=== PATIENT | male | born 1960 | race Caucasian/White ===

== ENCOUNTER 2016-08-03 20:50 | Emergency (ER) | payer OTHER ==
[~2016-08-03] VITALS: Ht 175.3 cm; Wt 172.7 kg
[2016-08-03 20:52] VITALS: Ht 175.3 cm; Wt 172.7 kg
[2016-08-03] MEDS ORDERED: SOD CHLORIDE 0.9% 500 ML IV STA (21:21)
[2016-08-03 21:33] LABS: ADD SCAN DIFF NO
[2016-08-03 21:35] LABS: ABNORMAL IP MESSAGE 1; HEMATOCRIT 30.5 % (42.0-52.0); HEMOGLOBIN 10.3 g/dl (14.0-18.0); MEAN CORPUSCULAR HEMOGLOBIN 30.3 pg (29.0-33.0); MEAN CORPUSCULAR HGB CONC 33.8 g/dl (32.0-37.0); MEAN CORPUSCULAR VOLUME 89.7 fl (82.0-101.0); PLATELET COUNT 142 10^3/UL (140-415); RED CELL DISTRIBUTION WIDTH 17.2 % (11.5-14.5); WHITE BLOOD COUNT 5.3 10^3/ul (4.8-10.8)
[2016-08-03 21:53] LABS: INR 1.47; PROTIME 17.9 Sec (12.2-14.2); PT RATIO 1.4
[2016-08-03 21:54] LABS: PARTIAL THROMBOPLASTIN TIME 36.3 Sec (25.0-35.0)
[2016-08-03 22:05] LABS: ALANINE AMINOTRANSFERASE 66 IU/L (13-69); ALBUMIN/GLOBULIN RATIO 0.88; ALKALINE PHOSPHATASE 382 IU/L (42-121); ANION GAP 10 (8-16); ASPARTATE AMINO TRANSFERASE 108 IU/L (15-46); BILIRUBIN,INDIRECT 0.3 mg/dl (0-1.1); BILIRUBIN,TOTAL 0.3 mg/dl (0.2-1.3); BLOOD UREA NITROGEN 10 mg/dl (7-20); CALCIUM 8.4 mg/dl (8.4-10.2); CARBON DIOXIDE 18 mmol/L (21-31); CHLORIDE 111 mmol/L (97-110); CREATININE 0.97 mg/dl (0.61-1.24); GLUCOSE 89 mg/dl (70-220); POTASSIUM 4.6 mmol/L (3.5-5.1); SODIUM 134 mmol/L (135-144); TOTAL PROTEIN 6.4 g/dl (6.1-8.1)
[2016-08-03 22:14] LABS: EOSINOPHILS # 0.4 10^3/ul (0.0-0.5); LYMPHOCYTES # 1.1 10^3/ul (0.8-2.9); MONOCYTE # 0.6 10^3/ul (0.3-0.9); MYELOCYTES # 0.1; NEUTROPHIL # 2.9 10^3/ul (1.6-7.5); OVALOCYTES FEW; PLATELET ESTIMATE PLT APPEAR ADEQUATE; TEAR DROP CELLS FEW
[2016-08-03 22:17] LABS: TROPONIN-I < 0.012 ng/ml (0.00-0.12)
[2016-08-03] MEDS ORDERED: SOD CHLORIDE 0.9% 1,000 ML IV STA (22:31)
[2016-08-03] MEDS ORDERED: LEVE500T8 PO (22:46)
[2016-08-03] MEDS ORDERED: ZINC220C5 PO (22:46)
[2016-08-03] MEDS ORDERED: VANC125C10 PO (22:46)
[2016-08-03] MEDS ORDERED: PROP10TA6 PO (22:46)
[2016-08-03] MEDS ORDERED: FER325 PO (22:46)
--- NOTE | 2016-08-03 22:51 | RADRPT ---
PROCEDURE: XR Chest. CLINICAL INDICATION: Syncope. TECHNIQUE: Single frontal chest x-ray. COMPARISON: None. FINDINGS: The cardiomediastinal silhouette is unremarkable. There is no congestive heart failure.. No focal i nfiltrate is seen. There is no pleural effusion. There is no pneumothorax. The osseous structures are unremarkable. IMPRESSION: 1. No active disease. RPTAT: HMVK .Cedric Blunt MD, Date Time Electronically viewed and signed by .Cedric Blunt MD, MD on 08/03/2016 22:50 .K/
[2016-08-03 23:19] LABS: ADD UMIC NO; URINE BILIRUBIN (Dip) NEGATIVE (NEGATIVE); URINE BLOOD (Dip) NEGATIVE (NEGATIVE); URINE COLOR YELLOW (YELLOW); URINE GLUCOSE (Dip) NEGATIVE (NEGATIVE); URINE KETONES (Dip) TRACE (NEGATIVE); URINE LEUKOCYTE ESTERASE (Dip) NEGATIVE (NEGATIVE); URINE NITRITE (Dip) NEGATIVE (NEGATIVE); URINE TOTAL PROTEIN (Dip) NEGATIVE (NEGATIVE); URINE UROBILINOGEN (Dip) 0.2 E.U./dL (0.1-1.0)
[2016-08-04 00:20] VITALS: BP 112/50; PULSE 68; RESP 16
--- NOTE | 2016-08-04 00:23 | ERD ---
ER Documentation Chief Complaint Date/Time DATE: 08/04/16 TIME: 00:23 Chief Complaint hypotensive and generalized weakness x 2 days HPI 56-year-old male with a history of cirrhosis presenting to the ER with generalized weakness and dizziness that started at home today. He states he was walking to go eat dinner and felt very lightheaded and felt like he was about to faint. He denies any associated headache, chest pain, shortness of breath. He has been tired all day and sleeping per his sister. He was recently admitted to [facility] for diarrhea and hypotension. His lactulose was stopped at that time secondary to his diarrhea. Currently he is on vancomycin oral therapy for C. difficile colitis. He states that he is not having diarrhea anymore. He has not noted any fevers since his discharge. He denies any dysuria. He has not been eating much today as he has been sleeping. ROS All systems reviewed and are negative except as per history of present illness. Medications Home Meds Active Scripts Lactulose* (Lactulose*) 10 Gm/15 Ml Solution, 30 GM PO Q6 for 30 Days, ML Prov:FIGUEROA BETH MD 08/04/16 Reported Medications Ferrous Sulfate* (Ferrous Sulfate*) 325 Mg Tabec, 325 MG PO DAILY, TAB 08/03/16 Propranolol Hcl* (Propranolol Hcl*) 10 Mg Tablet, 10 MG PO BID, TAB 08/03/16 Levetiracetam* (Levetiracetam*) 500 Mg Tablet, 2000 MG PO Q12H, TAB 08/03/16 Zinc Sulfate* (Zinc Sulfate*) 220 Mg Cap, 220 MG PO DAILY, CAP 08/03/16 Vancomycin Hcl (Vancocin Hcl Oral) 125 Mg Cap, 125 MG PO Q6, CAP 08/03/16 Allergies Allergies: Coded Allergies: Penicillins (Verified Allergy, Intermediate, 08/03/16) PMhx/Soc History of Surgery: Yes (throat sx) Anesthesia Reaction: No Hx Neurological Disorder: Yes (sz) Hx Respiratory Disorders: No Hx Psychiatric Problems: No Hx Miscellaneous Medical Probl: No Hx Alcohol Use: No Hx Substance Use: No Hx Tobacco Use: No Smoking Status: Never smoker FmHx Family History: No diabetes Physical Exam Vitals Vital Signs Date Time Temp Pulse Resp B/P Pulse Ox O2 Delivery O2 Flow Rate FiO2 08/04/16 00:20 68 16 112/50 100 Room Air 08/03/16 23:07 118/85 08/03/16 22:47 59 16 102/64 100 Room Air 08/03/16 21:09 63 16 105/64 100 Room Air 08/03/16 20:52 98.0 68 18 108/59 97 Physical Exam Const: Chronically ill-appearing but nontoxic, no distress, no diaphoresis Head: Atraumatic Eyes: Normal Conjunctiva, PERRLA, EOMI, no nystagmus ENT: Dry oral mucosa, no intraoral lesions Neck: Full range of motion. No JVD. No meningismus. Resp: Clear to auscultation bilaterally Cardio: Regular rate and rhythm, no murmurs Abd: Soft, non tender, distended with ascites. Normal bowel sounds Skin: No petechiae or rashes Back: No midline or flank tenderness Ext: No cyanosis, trace bilateral lower extremity edema Neur: Awake and alert and oriented 3, cranial nerves intact, strength and sensations intact in all 4 extremities Psych: Normal Mood and Affect Result Diagram: 08/03/16211408/03/162114 Results 24 hrs Laboratory Tests Test 08/03/16 21:15 08/03/16 21:20 08/03/16 22:13 08/03/16 23:05 White Blood Count 5.310^3/ul Red Blood Count 3.4010^6/ul Hemoglobin 10.3g/dl Hematocrit 30.5% Mean Corpuscular Volume 89.7fl Mean Corpuscular Hemoglobin 30.3pg Mean Corpuscular Hemoglobin Concent 33.8g/dl Red Cell Distribution Width 17.2% Platelet Count 07272^3/UL Mean Platelet Volume 9.0fl Neutrophils % 55.0% Band Neutrophils % 2.0% Lymphocytes % 21.0% Monocytes % 11.0% Eosinophils % 7.0% Metamyelocytes % 3.0% Myelocytes % 1.0% Neutrophils # 2.910^3/ul Lymphocytes # 1.110^3/ul Monocytes # 0.610^3/ul Eosinophils # 0.410^3/ul Metamyelocytes # 0.2 Myelocytes # 0.1 Platelet Estimate PLT APPEAR ADEQUATE Tear Drop Cells FEW Ovalocytes FEW Prothrombin Time 17.9Sec Prothrombin Time Ratio 1.4 INR International Normalized Ratio 1.47 Activated Partial Thromboplast Time 36.3Sec Sodium Level 134mmol/L Potassium Level 4.6mmol/L Chloride Level 111mmol/L Carbon Dioxide Level 18mmol/L Anion Gap 10 Blood Urea Nitrogen 10mg/dl Creatinine 0.97mg/dl Glucose Level 89mg/dl Calcium Level 8.4mg/dl Total Bilirubin 0.3mg/dl Direct Bilirubin 0.00mg/dl Indirect Bilirubin 0.3mg/dl Aspartate Amino Transf (AST/SGOT) 108IU/L Alanine Aminotransferase (ALT/SGPT) 66IU/L Alkaline Phosphatase 382IU/L Troponin I < 0.012ng/ml Total Protein 6.4g/dl Albumin 3.0g/dl Globulin 3.40g/dl Albumin/Globulin Ratio 0.88 Ammonia 52umol/l Bedside Glucose 84mg/dL Urine Color YELLOW Urine Clarity CLEAR Urine pH 5.5 Urine Specific [place] 1.020 Urine Ketones TRACE Urine Nitrite NEGATIVE Urine Bilirubin NEGATIVE Urine Urobilinogen 0.2 E.U./dL Urine Leukocyte Esterase NEGATIVE Urine Hemoglobin NEGATIVE Urine Glucose NEGATIVE% Urine Total Protein NEGATIVE Current Medications Medications (Trade) Dose Ordered Sig/Kaylin Route PRN Reason Start Time Stop Time Status Last Admin Dose Admin Sodium Chloride 500 ml @ 500 mls/hr Q1H STAT IV 08/03/16 21:21 08/03/16 22:20 DC 08/03/16 21:32 Sodium Chloride (NS) 1,000 ml @ 1,000 mls/hr Q1H STAT IV 08/03/16 22:31 08/03/16 23:30 DC 08/03/16 22:34 Procedures/MDM EKG: Rate/Rhythm: Normal Sinus Rhythm QRS, ST, T-waves: low voltage in anterior leads, No changes consistent w/ acute ischemia Impression: No evidence of ischemia or arrhythmia Labs: CBC shows mild anemia, BMP shows hyponatremia and hyper chloremia. Ammonia level is elevated. Troponin is normal Chest x-ray did not show any acute abnormalities MDM Patient is presenting with acute onset dizziness and generalized weakness. I have a low suspicion for CVA or intracranial hemorrhage. I have a low suspicion for acute coronary syndrome, fatal arrhythmia, or pulmonary embolism. Patient was given IV fluids with significant improvement in his blood pressure and his symptoms. I discussed with him and his sister that his ammonia level was elevated and that they should start lactulose again now that he does not have diarrhea anymore. I do not suspect sepsis. I walked the patient around the ER and he had no recurrent symptoms of weakness or dizziness. I believe he is stable for discharge at this time with close continued outpatient follow-up. Follow-up was recommended in the next 2 days. A lactulose prescription was given. Patient was discharged in a stable condition with return precautions. Departure Diagnosis: Primary Impression: Acute weakness Additional Impression: Increased ammonia level Condition: Stable Patient Instructions: Weakness, Unk Cause Additional Instructions: Return to the ER for any worsaening symptoms. Follow-up with your doctor in 1- 2 days. Start taking your lactulose again. FIGUEROA BETH MD Aug 04, 2016 00:23
[2016-08-04] MEDS ORDERED: LACT10SO5 PO (00:32)
== END 2016-08-04 00:38 | disposition home or self-care (01) ==
LOC: E/R 20:50
DX: R53.1 Weakness (principal); E72.20 Disorder of urea cycle metabolism, unspecified; R42 Dizziness and giddiness
CPT/HCPCS: 71010; 80053; 81003; 82140; 82962; 84484; 85025; 85610; 85730; 93005; J7030; J7040; 36415

== ENCOUNTER 2016-08-16 04:10 | Inpatient (IN) | payer OTHER ==
[~2016-08-16] VITALS: Ht 175.3 cm; Wt 145.0 kg
[~2016-08-16 04:10] MED LIST: FER325 PO; LACT10SO5 PO; LEVE500T8 PO; PROP10TA6 PO; VANC125C10 PO; ZINC220C5 PO
[2016-08-16] MEDS ORDERED: SODIUM CHLORIDE 0.9% 1L BAG IV* STA (04:44)
[2016-08-16] MEDS ORDERED: ACETAMINOPHEN 325 MG TAB PO STA (04:44)
[2016-08-16 04:48] LABS: ADD SCAN DIFF NO
[2016-08-16 04:55] LABS: ABNORMAL IP MESSAGE 1; BASOPHILS % 0.4 % (0.0-2.0); EOSINOPHILS # 0.1 10^3/ul (0.0-0.5); EOSINOPHILS % 1.1 % (0.0-7.0); HEMATOCRIT 29.2 % (42.0-52.0); HEMOGLOBIN 9.6 g/dl (14.0-18.0); LYMPHOCYTES # 0.5 10^3/ul (0.8-2.9); LYMPHOCYTES % 6.8 % (15.0-51.0); MEAN CORPUSCULAR HEMOGLOBIN 29.9 pg (29.0-33.0); MEAN CORPUSCULAR HGB CONC 32.9 g/dl (32.0-37.0); MEAN PLATELET VOLUME 9.7 fl (7.4-10.4); MONOCYTE # 0.7 10^3/ul (0.3-0.9); NEUTROPHIL # 6.6 10^3/ul (1.6-7.5); NEUTROPHILS % 82.3 % (39.0-77.0); RED BLOOD COUNT 3.21 10^6/ul (4.70-6.10); RED CELL DISTRIBUTION WIDTH 16.9 % (11.5-14.5)
[2016-08-16 05:09] LABS: INR 1.56; PARTIAL THROMBOPLASTIN TIME 38.3 Sec (25.0-35.0); PROTIME 18.8 Sec (12.2-14.2); PT RATIO 1.5
[2016-08-16 05:14] LABS: ALANINE AMINOTRANSFERASE 66 IU/L (13-69); ALBUMIN 2.9 g/dl (3.3-4.9); ALBUMIN/GLOBULIN RATIO 0.87; ALKALINE PHOSPHATASE 381 IU/L (42-121); ANION GAP 10 (8-16); ASPARTATE AMINO TRANSFERASE 88 IU/L (15-46); BILIRUBIN,INDIRECT 1.2 mg/dl (0-1.1); BILIRUBIN,TOTAL 1.2 mg/dl (0.2-1.3); BLOOD UREA NITROGEN 10 mg/dl (7-20); CALCIUM 8.5 mg/dl (8.4-10.2); CARBON DIOXIDE 22 mmol/L (21-31); CHLORIDE 105 mmol/L (97-110); CREATININE 0.79 mg/dl (0.61-1.24); GLUCOSE 85 mg/dl (70-220); POTASSIUM 3.8 mmol/L (3.5-5.1); SODIUM 133 mmol/L (135-144); TOTAL PROTEIN 6.2 g/dl (6.1-8.1)
[2016-08-16 05:21] LABS: ACETAMINOPHEN < 10.0 ug/ml (10.0-30.0); SALICYLATE < 1.0 mg/dl (5.0-30.0)
--- NOTE | 2016-08-16 05:36 | RADRPT ---
PROCEDURE: CHEST - 1 VIEW CLINICAL INDICATION: 56-year-old male with altered level of consciousness. TECHNIQUE: A single frontal AP portable view of the chest was performed. The images were reviewed on a PACS workstation. COMPARISON: Chest x-ray August 03, 2016. FINDINGS: There is a shallow inspiration accentuating the heart size. Accounting for this, the cardiomediasti nal silhouette is within normal limits. There is mild elevation right hemidiaphragm. There is no e vidence for an infiltrate. There is no evidence for congestive heart failure. There is no evidence for pneumothorax. The osseous structures are intact. IMPRESSION: No evidence for active cardiopulmonary disease. .Carlos Alberto Tom MD, MD Date Time Electronically viewed and signed by .Carlos Alberto Tom MD, MD on 08/16/2016 05:36 .M/
[2016-08-16] MEDS ORDERED: AZTREONAM 1 GM/NS (PMX) 50 ML IVPB STA (05:39)
[2016-08-16] MEDS ORDERED: metroNIDAZOLE 500 MG/NS (PMX) 100 ML IVPB STA (05:39)
[2016-08-16 05:41] LABS: PLATELET COUNT 78 10^3/UL (140-415)
--- NOTE | 2016-08-16 05:43 | ERA ---
ER Documentation Chief Complaint Date/Time DATE: 08/16/16 TIME: 05:41 Chief Complaint abdominal pain, cirrhosis HPI 56-year-old gentleman abdominal pain and swelling. Patient has history of cirrhosis. Mild fever. No chills. No nausea no vomiting. No other current complaints. Pain is mild to moderate intensity and is diffuse in location nonlocalizing with no radiations ROS All systems reviewed and are negative except as per history of present illness. Medications Home Meds Active Scripts Lactulose* (Lactulose*) 10 Gm/15 Ml Solution, 30 GM PO Q6 for 30 Days, ML Prov:FIGUEROA BETH MD 08/04/16 Reported Medications Ferrous Sulfate* (Ferrous Sulfate*) 325 Mg Tabec, 325 MG PO DAILY, TAB 08/03/16 Propranolol Hcl* (Propranolol Hcl*) 10 Mg Tablet, 10 MG PO BID, TAB 08/03/16 Levetiracetam* (Levetiracetam*) 500 Mg Tablet, 2000 MG PO Q12H, TAB 08/03/16 Zinc Sulfate* (Zinc Sulfate*) 220 Mg Cap, 220 MG PO DAILY, CAP 08/03/16 Discontinued Reported Medications Vancomycin Hcl (Vancocin Hcl Oral) 125 Mg Cap, 125 MG PO Q6, CAP 08/03/16 Allergies Allergies: Coded Allergies: Penicillins (Unverified Allergy, Intermediate, 08/16/16) PMhx/Soc History of Surgery: Yes (throat sx) Anesthesia Reaction: No Hx Neurological Disorder: Yes (sz) Hx Respiratory Disorders: No Hx Psychiatric Problems: No Hx Miscellaneous Medical Probl: No Hx Alcohol Use: No Hx Substance Use: No Hx Tobacco Use: No Physical Exam Vitals Vital Signs Date Time Temp Pulse Resp B/P Pulse Ox O2 Delivery O2 Flow Rate FiO2 08/16/16 04:23 Nasal Cannula 2 08/16/16 04:10 100.8 104 16 108/57 96 Physical Exam Const: [] Head: Atraumatic Eyes: Normal Conjunctiva ENT: Normal External Ears, Nose and Mouth. Neck: Full range of motion..~ No meningismus. Resp: Clear to auscultation bilaterally Cardio: Regular rate and rhythm, no murmurs Abd: Distended abdomen hypoactive bowel sounds. Palpable fluid wave Skin: No petechiae or rashes Back: No midline or flank tenderness Ext: No cyanosis, or edema Neur: Awake and alert Psych: Normal Mood and Affect Result Diagram: 08/16/16 0430 08/16/16 0430 Results 24 hrs Laboratory Tests Test 08/16/16 04:24 08/16/16 04:30 Bedside Glucose 95mg/dL White Blood Count 8.010^3/ul Red Blood Count 3.2110^6/ul Hemoglobin 9.6g/dl Hematocrit 29.2% Mean Corpuscular Volume 91.0fl Mean Corpuscular Hemoglobin 29.9pg Mean Corpuscular Hemoglobin Concent 32.9g/dl Red Cell Distribution Width 16.9% Platelet Count Pending Mean Platelet Volume 9.7fl Neutrophils % 82.3% Lymphocytes % 6.8% Monocytes % 9.0% Eosinophils % 1.1% Basophils % 0.4% Nucleated Red Blood Cells % 0.0/100WBC Neutrophils # 6.610^3/ul Lymphocytes # 0.510^3/ul Monocytes # 0.710^3/ul Eosinophils # 0.110^3/ul Basophils # 0.010^3/ul Nucleated Red Blood Cells # 0.010^3/ul Prothrombin Time 18.8Sec Prothrombin Time Ratio 1.5 INR International Normalized Ratio 1.56 Activated Partial Thromboplast Time 38.3Sec Sodium Level 133mmol/L Potassium Level 3.8mmol/L Chloride Level 105mmol/L Carbon Dioxide Level 22mmol/L Anion Gap 10 Blood Urea Nitrogen 10mg/dl Creatinine 0.79mg/dl Glucose Level 85mg/dl Lactic Acid Level 1.4mmol/L Calcium Level 8.5mg/dl Total Bilirubin 1.2mg/dl Direct Bilirubin 0.00mg/dl Indirect Bilirubin 1.2mg/dl Aspartate Amino Transf (AST/SGOT) 88IU/L Alanine Aminotransferase (ALT/SGPT) 66IU/L Alkaline Phosphatase 381IU/L Ammonia 24umol/l Troponin I < 0.012ng/ml Total Protein 6.2g/dl Albumin 2.9g/dl Globulin 3.30g/dl Albumin/Globulin Ratio 0.87 Salicylates Level < 1.0mg/dl Acetaminophen Level < 10.0ug/ml Ethyl Alcohol Level Pending Current Medications Medications (Trade) Dose Ordered Sig/Kaylin Route PRN Reason Start Time Stop Time Status Last Admin Dose Admin Sodium Chloride (NS) 3,410 ml BOLUS OVER 2 HOURS STAT IV* 08/16/16 04:44 08/16/16 04:59 DC Acetaminophen (Tylenol Tab) 650 mg ONCE STAT PO 08/16/16 04:44 08/16/16 04:59 DC Procedures/MDM Blood and urine cultures pending EKG: Rate/Rhythm: Normal Sinus Rhythm QRS, ST, T-waves: No changes consistent w/ acute ischemia Impression: No evidence of ischemia or arrhythmia Chest X-ray 1V Interpreted by me: Soft Tissue: No acute abnormalities Bones: No acute abnormalities Mediastinum/Cardiac Silhouette/Lungs: No acute abnormalities Medical decision-makin abdominal fever and ascites. Spontaneous retroperitoneal as well as be a great concern. Patient started on broad- spectrum antibiotic. Admitted to hospitalist. Departure Diagnosis: Primary Impression: Abdominal pain Qualified Code: R10.84 - Generalized abdominal pain Additional Impression: Spontaneous bacterial peritonitis Condition: Serious MARIA A TAMEZ Aug 16, 2016 05:43
[2016-08-16 05:50] LABS: ETHANOL < 10.0 mg/dl
[2016-08-16 07:34] LABS: ADD UMIC NO; UR ASCORBIC ACID 40 mg/dL (NEGATIVE); UR BILIRUBIN (Dip) NEGATIVE (NEGATIVE); UR BLOOD (Dip) NEGATIVE (NEGATIVE); UR CLARITY SLIGHTLY CLOUDY (CLEAR); UR COLOR AMBER (YELLOW); UR GLUCOSE (Dip) NEGATIVE (NEGATIVE); UR KETONES (Dip) TRACE mg/dL (NEGATIVE); UR LEUKOCYTE ESTERASE (Dip) NEGATIVE Leu/ul (NEGATIVE); UR MUCUS FEW /HPF (NONE SEEN); UR NITRITE (Dip) NEGATIVE (NEGATIVE); UR RBC 0 /HPF (0-5); UR SPECIFIC GRAVITY (Dip) 1.021 (1.003-1.030); UR SQUAMOUS EPITHELIAL CELL FEW /HPF (FEW); UR TOTAL PROTEIN (Dip) NEGATIVE (NEGATIVE); UR UROBILINOGEN (Dip) NEGATIVE (NEGATIVE)
[2016-08-16 07:58] LABS: BARBITURATES NEGATIVE (NEGATIVE); BENZODIAZEPINES NEGATIVE (NEGATIVE); CANNABINOIDS NEGATIVE (NEGATIVE); COCAINE NEGATIVE (NEGATIVE); OPIATES NEGATIVE (NEGATIVE)
[2016-08-16 08:47] VITALS: TEMP 99
[2016-08-16] MEDS ORDERED: HYDROCODONE/APAP (5/325) TAB PO PRN (10:00)
[2016-08-16] MEDS ORDERED: morphine 2 MG INJ IV PRN (10:00)
[2016-08-16] MEDS ORDERED: ACETAMINOPHEN 325 MG TAB PO PRN (10:00)
[2016-08-16] MEDS ORDERED: NACL 0.9% 3 ML SYG IV SCH (10:00)
[2016-08-16 10:43] VITALS: BP 97/54; PULSE 93; RESP 20; Ht 175.3 cm; Wt 145.0 kg
--- NOTE | 2016-08-16 11:05 | HP ---
Date/Time of Note Date/Time of Note DATE: 08/16/16 TIME: 11:01 Assessment/Plan VTE Prophylaxis VTE Prophylaxis Intervention: contraindicated Assessment/Plan Assessment/Plan 1. Systemic inflammatory response syndrome with febrile illness and tachycardia. The source of infection is unclear at this time. The patient will be empirically treated for any underlying spontaneous pectoral peritonitis. Patient is allergic to penicillins and hence the patient will be started on Flagyl and aztreonam. Patient has no evidence of any septic shock. 2. Liver cirrhosis. The patient's ammonia level is within normal limits. The patient will be gently diuresed. The patient's chest x-ray showing no evidence of any pulmonary vascular congestion. 3. Abdominal pain. CT scan of the abdomen and pelvis will be obtained. The patient will be provided with adequate pain control. Gastroenterology consult will be obtained 4. Seizure disorder. The patient's antiseizure medications will be resumed. 5. Normocytic normochromic anemia. Most probably anemia of chronic disease. Will obtain an iron panel. 6. Thrombocytopenia. Most probably secondary to underlying liver cirrhosis. Will monitor the H&H closely. Will avoid any anticoagulants. 7. Morbid obesity. Fasting lipid panel will be obtained. A hemoglobin A1c will be obtained. Plan: The patient will be admitted to inpatient medical surgical floor. The patient will be kept n.p.o. except for any medications. The patient will be started on DVT prophylaxis and gastrointestinal prophylaxis. The patient will remain a full code. Activities will be with assist. The rest of the patient's management will be based on the clinical course and the results of diagnostic studies. Based on the patient's clinical presentation, he most probably requires at least 2 midnights' stay for further management and evaluation of his clinical presentation. The case and management of this patient was fully discussed with Dr. Randy GREEN/ZACH Admit Date/Time Admit Date/Time Aug 16, 2016 at 05:49 Hx of Present Illness This is a 56-year-old male with past medical history of liver cirrhosis of unclear etiology, leukemia status post radiation and chemotherapy in the past, seizure disorder, and morbid obesity who came to the emergency room with multiple complaints. Patient verbalized that he has been having increased abdominal distention and abdominal pain for the past few days. The patient also verbalized multiple episodes of nonbilious nonbloody vomiting. The patient apparently was treated for C. difficile colitis with oral vancomycin. The patient continues to have diarrhea. Patient denied any melena or hematochezia. Patient denied any hematemesis. The patient has prior history of esophageal varices. The patient denied any prior paracentesis. In the emergency room, the patient was noticed to have a fever of 100.8. Patient had no underlying leukocytosis. The patient was treated with IV Flagyl and IV aztreonam for possible underlying spontaneous bacterial peritonitis. ROS Constitutional: chills Eyes: no complaints ENT: no complaints Respiratory: no complaints Cardiovascular: no complaints Gastrointestinal: diarrhea, nausea, pain, vomiting Genitourinary: no complaints Musculoskeletal: no complaints Skin: no complaints Neurologic: no complaints Endocrine: no complaints Lymphatic: no complaints Psychological: no complaints Immunologic: no complaints PMH/Family/Social Past Medical History Medical History: other (Liver cirrhosis, seizure disorder, obesity) Past Surgical History Past Surgical Hx: no surgical history Social History Alcohol Use: none Smoking Status: Former smoker Drug Use: none Exam/Review of Systems Vital Signs Vitals Vital Signs Date Time Temp Pulse Resp B/P Pulse Ox O2 Delivery O2 Flow Rate FiO2 08/16/16 08:47 99.0 91 20 107/92 100 Room Air 08/16/16 04:23 2 Exam Exam General: Morbidly obese 56 year-old male lying in bed in no apparent distress. HEENT: Normocephalic, atraumatic. Eyes: Anicteric sclerae, conjunctivae clear. ENT: Nasal septum midline, oral mucosa moist. Neck supple, no JVD noticed. Respiratory: Bilaterally clear breath sounds. No use of accessory muscles of respiration. No adventitious breath sounds. Cardiovascular: S1, S2 heard. Irregularly irregular rhythm. Abdomen: Distended. Bowel sounds positive in all 4 quadrants. Left lower quadrant tenderness. Genitourinary: Deferred. Extremities: No cyanosis, no clubbing. Bilateral lower extremity 2+ pitting edema. Peripheral pulses palpable. Neurologic: Cranial nerves II through XII grossly intact. The patient is awake, alert, and oriented. Skin: Normal skin turgor. No skin rashes. Labs Result Diagram: 08/16/16 0430 08/16/16 0430 Medications Medications Current Medications Ondansetron HCl (Zofran Inj) 4 mg Q6H PRN IV NAUSEA AND/OR VOMITING; Start at 10:00 Acetaminophen (Tylenol Tab) 650 mg Q6H PRN PO PAIN LEVEL 1-3 OR FEVER; Start at 10:00 Acetaminophen/ Hydrocodone Bitart ([place] (5/325)) 1 tab Q6H PRN PO MODERATE PAIN LEVEL 4-6; Start 08/16/16 at 10:00 Morphine Sulfate (morphine) 2 mg Q4H PRN IV SEVERE PAIN LEVEL 7-10; Start 08/16 at 10:00 Pantoprazole (Protonix Tab) 40 mg DAILY@06 PO ; Start 08/17/16 at 06:00 Ferrous Sulfate (Ferrous Sulfate (Ec)) 325 mg DAILY PO ; Start 08/17/16 at 09:00 Levetiracetam (Keppra) 2,000 mg Q12H PO ; Start 08/16/16 at 10:00 Propranolol HCl (Inderal) 10 mg BID PO ; Start 08/16/16 at 21:00 Zinc Sulfate 220 mg 220 mg DAILY PO ; Start 08/17/16 at 09:00 Metronidazole 100 ml @ 100 mls/hr Q8 IVPB ; Start 08/16/16 at 14:00 Aztreonam (Azactam 1gm/NS (Pmx)) 50 ml @ 100 mls/hr Q12 IVPB ; Start 08/16/16 at 21:00 Procedures Procedures CXR IMPRESSION: No evidence for active cardiopulmonary disease. Twelve-lead EKG Frequent premature ventricular complexes. MALU CORONADO NP Aug 16, 2016 11:05
[2016-08-16] MEDS: LEVETIRACETAM 500 MG TAB PO SCH ×2 (11:33→21:25)
--- NOTE | 2016-08-16 15:45 | RADRPT ---
PROCEDURE: CT Abdomen and Pelvis without contrast CLINICAL INDICATION: Abdominal pain TECHNIQUE: Transaxial images were obtained through the abdomen and pelvis on a multi-slice scanner without the intravenous contrast administration. No oral contrast had previously been given. Sagit lilly and coronal re-formations were subsequently reconstructed. One or more of the following dose reduction techniques were used: - Automated exposure control. - Adjustment of the mA and/or kV according to patient size. - Use of iterative reconstruction technique. Radiation dose: CTDIvol = 23.84 mGy; DLP = 1774.60 mGy-cm. COMPARISON: No prior studies are available for comparison. FINDINGS: Lung bases: Discoid atelectasis is seen at the lung bases and there is a small gravitating left pleu ral fluid accumulation. Liver: The liver is small in size. No discrete focal lesion is identified. Gallbladder: There is extensive cholelithiasis in the gallbladder is mildly distended. The wall mascorro s not appear thickened. Bile ducts: The intra and extrahepatic bile ducts are normal in caliber. Pancreas: The pancreas is significantly fatty replaced. Spleen: The spleen is mildly enlarged. Adrenals: Normal with no mass identified. Kidneys, ureters and bladder: The kidneys are normal in size and there is no mass, pathological calc ification, or hydronephrosis evident. There is no perinephric stranding. The ureters are normal in c aliber and no ureteroliths are identified. The bladder appears unremarkable. Reproductive organs: Unremarkable. Stomach and bowel: The stomach appears unremarkable. There is no evidence of bowel obstruction. Di verticuli are seen within the descending and sigmoid colon. There is slight stranding within the fa t in the region of the mid to distal ascending colon for which mild diverticulitis cannot be exclude d. Appendix: The vermiform appendix is not discretely identified. Peritoneum: There is a moderate amount of water density free intraperitoneal fluid. No free air is identified. Aorta: Normal in caliber with no aneurysmal dilatation. IVC: Unremarkable. Lymph nodes: No pathologically enlarged nodes are identified. Osseous structures: Moderate degenerative spine changes are seen diffusely. IMPRESSION: 1. There is a moderate amount of water density free intraperitoneal fluid. No free air is evident. 2. Diverticuli are seen within the descending and sigmoid colon and there is stranding within the f at along the descending colon raising the suspicion of diverticulitis. There is no evidence of onesimo l obstruction. 3. Extensive cholelithiasis with the gallbladder mildly distended. No gallbladder wall thickening or bile duct dilatation is evident and the pancreas is partially fatty replaced. 4. The liver is small with no focal lesion and the spleen is mildly enlarged. 5. Small left pleural fluid accumulation with discoid atelectasis seen at the lung bases, greater on the left and the right. Physician Leann Date Time Electronically viewed and signed by Nikolas Louis Physician on 08/16/2016 15:45 RH/
[2016-08-16] MEDS: metroNIDAZOLE 500 MG/NS (PMX) 100 ML IVPB SCH ×2 (16:12→23:13)
[2016-08-16] MEDS ORDERED: LORAZEPAM 0.5 MG TAB PO PRN (16:30)
--- NOTE | 2016-08-16 16:44 | CONS ---
Date/Time of Note Date/Time of Note DATE: 08/16/16 TIME: 16:20 Assessment/Plan Assessment/Plan Additional Assessment/Plan Assessment * Transaminitis * Anemia Chronic vs acute * Diarrhea/abdominal pain R/O C difficile CT scan of pelvis . Diverticuli are seen within the descending and sigmoid colon and there is stranding within the fat along the descending colon raising the suspicion of diverticulitis. There is no evidence of bowel obstruction. Extensive cholelithiasis with the gallbladder mildly distended. No gallbladder wall thickening or bile duct dilatation is evident and the pancreas is partially fatty replaced. . The liver is small with no focal lesion and the spleen is mildly enlarged * Morbid obesity * History of C difficile * Seizure disorder Plan * continue present management * request for stool c difficile * trend liver enzymes * request for iron profile Consultation Date/Type/Reason Admit Date/Time Aug 16, 2016 at 05:49 Date of Consultation: Aug 16, 2016 Type of Consultation: Gastroenterology Reason for Consultation diarrhea/ct scan diverticulitis Referring Provider: MALU CORONADO NP Hx of Present Illness 56 year old male morbid obesity,history of liver cirrhosis,history of leukemia post chemotherapy and radiation therapy,history of c difficile on oral vancomycin last July presented in the emergency room because of multiple complaints.He complains of diarrhea watery with no associated blood, with associated body weakness and vomiting and on and off abdominal pain for several days.he denies hematemesis nor hematochezia Emergency room course ,patient is febrile but no leukocytosis,hemoglobin of 9Total bilirubin 1.2,AST 88 alt 66,alkaline phosphatase 381. He was started on antibiotics.On the floor ,he denies any abdominal pain,nausea nor vomiting but having episode of diarrhea.CT abdomen/pelvis 1. There is a moderate amount of water density free intraperitoneal fluid. No free air is evident. 2. Diverticuli are seen within the descending and sigmoid colon and there is stranding within the fat along the descending colon raising the suspicion of diverticulitis. There is no evidence of bowel obstruction. 3. Extensive cholelithiasis with the gallbladder mildly distended. No gallbladder wall thickening or bile duct dilatation is evident and the pancreas is partially fatty replaced. 4. The liver is small with no focal lesion and the spleen is mildly enlarged. 5. Small left pleural fluid accumulation with discoid atelectasis seen at the lung bases, greater on the left and the right. Stool for clostridium difficile will requested and trend liver enzymes Eyes: no complaints ENT: no complaints Respiratory: no complaints Cardiovascular: no complaints Gastrointestinal: diarrhea, flatus, nausea, pain, vomiting Genitourinary: no complaints Musculoskeletal: no complaints Skin: no complaints Neurologic: no complaints Endocrine: no complaints Lymphatic: no complaints Psychological: no complaints Immunologic: no complaints Past Medical History Medical History: colitis, other (Liver cirrhosis, seizure disorder, obesity) Past Surgical History Past Surgical Hx: other (surgery for polyp trachea) Social History Alcohol Use: none Smoking Status: Never smoker Drug Use: none Exam/Review of Systems Vital Signs Vitals Vital Signs Date Time Temp Pulse Resp B/P Pulse Ox O2 Delivery O2 Flow Rate FiO2 08/16/16 10:43 97.7 93 20 97/54 98 Room Air 08/16/16 04:23 2 Exam Constitutional: alert, oriented, well developed Psych: nl mood/affect, no complaints Head: atraumatic, normocephalic Eyes: PERRL, nl conjunctiva, nl lids, nl sclera ENMT: nl external ears & nose, nl nasal mucosa & septum Neck: non-tender, supple Respiratory: clear to auscultation, diminished breath sounds, normal air movement Cardiovascular: nl pulses, regular rate and rhythm Gastrointestinal: bowel sounds, distended, nl liver, spleen, non-tender, soft, No rebound or guarding Musculoskeletal: muscle weakness, swelling Extremities: edema, normal pulses Neurological: DRAUGHTSMAN II-XII intact, nl mental status, nl speech, nl strength Skin: nl turgor, No rash or lesions Lymph: nl lymph nodes Results Result Diagram: 08/16/16 0430 08/16/16 0430 Results 24 hrs Laboratory Tests Test 08/16/16 04:24 08/16/16 04:30 08/16/16 07:00 08/16/16 08:25 Bedside Glucose 95 White Blood Count 8.0 # Red Blood Count 3.21 L Hemoglobin 9.6 L Hematocrit 29.2 L Mean Corpuscular Volume 91.0 Mean Corpuscular Hemoglobin 29.9 Mean Corpuscular Hemoglobin Concent 32.9 Red Cell Distribution Width 16.9 H Platelet Count 78 #L Mean Platelet Volume 9.7 Neutrophils % 82.3 H Lymphocytes % 6.8 L Monocytes % 9.0 Eosinophils % 1.1 Basophils % 0.4 Nucleated Red Blood Cells % 0.0 Neutrophils # 6.6 Lymphocytes # 0.5 L Monocytes # 0.7 Eosinophils # 0.1 Basophils # 0.0 Nucleated Red Blood Cells # 0.0 Prothrombin Time 18.8 H Prothrombin Time Ratio 1.5 INR International Normalized Ratio 1.56 Activated Partial Thromboplast Time 38.3 H Sodium Level 133 L Potassium Level 3.8 Chloride Level 105 Carbon Dioxide Level 22 Anion Gap 10 Blood Urea Nitrogen 10 Creatinine 0.79 Glucose Level 85 Hemoglobin A1c 4.9 Lactic Acid Level 1.4 1.6 Calcium Level 8.5 Total Bilirubin 1.2 Direct Bilirubin 0.00 Indirect Bilirubin 1.2 H Aspartate Amino Transf (AST/SGOT) 88 H Alanine Aminotransferase (ALT/SGPT) 66 Alkaline Phosphatase 381 H Ammonia 24 # Troponin I < 0.012 Total Protein 6.2 Albumin 2.9 L Globulin 3.30 H Albumin/Globulin Ratio 0.87 Thyroid Stimulating Hormone (TSH) 1.610 Free Thyroxine 1.17 Salicylates Level < 1.0 L Acetaminophen Level < 10.0 L Ethyl Alcohol Level < 10.0 Urine Color DARRICK Urine Clarity SLIGHTLY CLOUDY A Urine pH 5.0 Urine Specific [place] 1.021 Urine Ketones TRACE A Urine Nitrite NEGATIVE Urine Bilirubin NEGATIVE Urine Urobilinogen NEGATIVE Urine Leukocyte Esterase NEGATIVE Urine Microscopic RBC 0 Urine Microscopic WBC 2 Urine Squamous Epithelial Cells FEW Urine Mucus FEW A Urine Hemoglobin NEGATIVE Urine Glucose NEGATIVE Urine Total Protein NEGATIVE Urine Opiates Screen NEGATIVE Urine Barbiturates NEGATIVE Urine Amphetamines Screen NEGATIVE Urine Benzodiazepines Screen NEGATIVE Urine Cocaine Screen NEGATIVE Urine Cannabinoids NEGATIVE Medications Medications Current Medications Ondansetron HCl (Zofran Inj) 4 mg Q6H PRN IV NAUSEA AND/OR VOMITING; Start at 10:00 Acetaminophen (Tylenol Tab) 650 mg Q6H PRN PO PAIN LEVEL 1-3 OR FEVER; Start at 10:00 Acetaminophen/ Hydrocodone Bitart ([place] (5/325)) 1 tab Q6H PRN PO MODERATE PAIN LEVEL 4-6; Start 08/16/16 at 10:00 Morphine Sulfate (morphine) 2 mg Q4H PRN IV SEVERE PAIN LEVEL 7-10; Start 08/16 at 10:00 Pantoprazole (Protonix Tab) 40 mg DAILY@06 PO ; Start 08/17/16 at 06:00 Ferrous Sulfate (Ferrous Sulfate (Ec)) 325 mg DAILY PO ; Start 08/17/16 at 09:00 Levetiracetam (Keppra) 2,000 mg Q12H PO Last administered on 08/16/16 11:33; Admin Dose 2,000 MG; Start 08/16/16 at 10:00 Propranolol HCl (Inderal) 10 mg BID PO ; Start 08/16/16 at 21:00 Zinc Sulfate 220 mg 220 mg DAILY PO ; Start 08/17/16 at 09:00 Metronidazole 100 ml @ 100 mls/hr Q8 IVPB Last administered on 08/16/16 16:12 ; Admin Dose 100 MLS/HR; Start 08/16/16 at 14:00 Aztreonam 50 ml @ 100 mls/hr Q12 IVPB ; Start 08/16/16 at 21:00 Potassium Chloride/Dextrose/ Sodium Chloride (KCl/D5-NS) 1,000 ml @ 60 mls/hr [id number] IV ; Start 08/16/16 at 17:00 Lorazepam (Ativan) 0.5 mg Q6H PRN PO ANXIETY; Start 08/16/16 at 16:30 Furosemide (Lasix) 20 mg DAILY IV ; Start 08/17/16 at 09:00 LAVON DIAZ MD Aug 16, 2016 16:30
[2016-08-16] MEDS: POTASSIUM CHLORIDE 10 MEQ in DEXTROSE 5%-0.9% NACL 995 ML IV SCH (18:06)
[2016-08-16] MEDS: ONDANSETRON 4 MG INJ IV PRN (18:08)
[2016-08-16 19:37] VITALS: BP 96/53; RESP 20
[2016-08-16] MEDS: PROPRANOLOL 10 MG TAB PO SCH (20:12)
[2016-08-16] MEDS: AZTREONAM 1 GM/NS (PMX) 50 ML IVPB SCH (22:46)
[2016-08-17] MEDS: metroNIDAZOLE 500 MG/NS (PMX) 100 ML IVPB SCH ×3 (06:42→22:58)
[2016-08-17] MEDS: PANTOPRAZOLE (EC) 40 MG TAB PO SCH (06:42)
[2016-08-17 07:32] VITALS: BP 94/51; RESP 18
[2016-08-17 08:02] LABS: ADD SCAN DIFF NO
[2016-08-17 08:13] LABS: ABNORMAL IP MESSAGE 1; BASOPHILS % 0.8 % (0.0-2.0); EOSINOPHILS # 0.1 10^3/ul (0.0-0.5); EOSINOPHILS % 4.5 % (0.0-7.0); HEMATOCRIT 25.7 % (42.0-52.0); HEMOGLOBIN 8.3 g/dl (14.0-18.0); LYMPHOCYTES # 0.6 10^3/ul (0.8-2.9); LYMPHOCYTES % 20.8 % (15.0-51.0); MEAN CORPUSCULAR HEMOGLOBIN 29.5 pg (29.0-33.0); MEAN CORPUSCULAR HGB CONC 32.3 g/dl (32.0-37.0); MEAN CORPUSCULAR VOLUME 91.5 fl (82.0-101.0); MEAN PLATELET VOLUME 9.5 fl (7.4-10.4); MONOCYTE # 0.7 10^3/ul (0.3-0.9); MONOCYTES % 24.6 % (0.0-11.0); NEUTROPHIL # 1.3 10^3/ul (1.6-7.5); NEUTROPHILS % 48.9 % (39.0-77.0); RED BLOOD COUNT 2.81 10^6/ul (4.70-6.10); RED CELL DISTRIBUTION WIDTH 16.9 % (11.5-14.5); WHITE BLOOD COUNT 2.6 10^3/ul (4.8-10.8)
[2016-08-17 08:16] LABS: PLATELET COUNT 58 10^3/UL (140-415)
[2016-08-17 08:34] LABS: INR 1.75; PROTIME 20.6 Sec (12.2-14.2); PT RATIO 1.6
[2016-08-17 08:35] LABS: PARTIAL THROMBOPLASTIN TIME 42.8 Sec (25.0-35.0)
[2016-08-17 08:50] LABS: CHOL/HDL RATIO 2.6 RATIO; MAGNESIUM 1.7 mg/dl (1.7-2.5); PHOSPHORUS 2.9 mg/dl (2.5-4.9)
[2016-08-17 09:05] LABS: ALBUMIN 2.4 g/dl (3.3-4.9); ALBUMIN/GLOBULIN RATIO 0.77; BILIRUBIN,INDIRECT 0.6 mg/dl (0-1.1); BILIRUBIN,TOTAL 0.6 mg/dl (0.2-1.3); CALCIUM 7.6 mg/dl (8.4-10.2); CREATININE 0.74 mg/dl (0.61-1.24); POTASSIUM 3.4 mmol/L (3.5-5.1); TOTAL PROTEIN 5.5 g/dl (6.1-8.1)
[2016-08-17 09:32] LABS: BILIRUBIN,INDIRECT 0.5 mg/dl (0-1.1); BILIRUBIN,TOTAL 0.5 mg/dl (0.2-1.3)
[2016-08-17 10:18] VITALS: BP 99/62; PULSE 92; RESP 18
[2016-08-17] MEDS: FUROSEMIDE 20 MG INJ IV SCH (10:20)
[2016-08-17] MEDS: LEVETIRACETAM 500 MG TAB PO SCH ×2 (10:20→21:30)
[2016-08-17] MEDS: ZINC SULFATE 220 MG CAP PO SCH (10:21)
[2016-08-17] MEDS: FERROUS SULFATE (EC) 325 MG TAB PO SCH (10:21)
[2016-08-17] MEDS: PROPRANOLOL 10 MG TAB PO SCH ×2 (10:21→20:51)
[2016-08-17] MEDS: AZTREONAM 1 GM/NS (PMX) 50 ML IVPB SCH (10:24)
[2016-08-17] MEDS: POTASSIUM CHLORIDE 10 MEQ in DEXTROSE 5%-0.9% NACL 995 ML IV SCH (14:38)
[2016-08-17] MEDS: VANCOMYCIN HCL 250 MG/5ML POSYG PO SCH ×3 (14:38→23:40)
--- NOTE | 2016-08-17 15:15 | PN ---
Date/Time of Note Date/Time of Note DATE: 08/17/16 TIME: 15:15 Assessment/Plan VTE Prophylaxis VTE Prophylaxis Intervention: SCD's Lines/Catheters IV Catheter Type (from [facility]): [place] Urinary Cath still in place: No Assessment/Plan Chief Complaint/Hosp Course 1. Sepsis secondary to underlying urinary tract infection and C. difficile colitis. Continue antimicrobials. The patient has no evidence of any septic shock. 2. Liver cirrhosis. The patient's ammonia level is within normal limits. The patient will be gently diuresed. The patient's chest x-ray showing no evidence of any pulmonary vascular congestion. 3. Abdominal pain. Abdominal CT scan showing moderate amount of water density free intraperitoneal fluid. The CT also revealed diverticuli within the descending colon and sigmoid colon and there is stranding within the fat along the descending colon raising the suspicion of diverticulitis. CT also revealed extensive cholelithiasis with gallbladder mildly distended with no gallbladder wall thickening or bile duct dilatation. Patient being followed by gastroenterology. 4. Seizure disorder. The patient's antiseizure medications will be continued. 5. Normocytic normochromic anemia. Most probably anemia of chronic disease. Will obtain an iron panel. Patient already on iron supplements. 6. Thrombocytopenia. Most probably secondary to underlying liver cirrhosis. Will monitor the H&H closely. Will avoid any anticoagulants. 7. C. difficile colitis. Continue antimicrobials. Enteric precautions. 8. Fluids, electrolytes, and nutrition. The patient was started on clear liquids as per gastroenterology. 9. DVT prophylaxis. Bilateral sequential compression devices. 10. Gastrointestinal prophylaxis. Proton pump inhibitors. 11. Plan. Continue antimicrobials. Advancement of diet as per gastroenterology. Replete potassium. Case discussed with Dr. Padilla. Problems: Subjective 24 Hr Interval Summary Free Text/Dictation The patient remains afebrile. Exam/Review of Systems Vital Signs Vitals Vital Signs Date Time Temp Pulse Resp B/P Pulse Ox O2 Delivery O2 Flow Rate FiO2 08/17/16 10:18 92 18 99/62 08/17/16 07:32 98.5 96 08/16/16 10:43 Room Air 08/16/16 04:23 2 Intake and Output 08/16/16 08/16/16 08/17/16 15:00 23:00 07:00 Intake Total 100 ml 1310 ml Balance 100 ml 1310 ml Exam General: Morbidly obese 56 year-old male lying in bed in no apparent distress. HEENT: Normocephalic, atraumatic. Eyes: Anicteric sclerae, conjunctivae clear. ENT: Nasal septum midline, oral mucosa moist. Neck supple, no JVD noticed. Respiratory: Bilaterally clear breath sounds. No use of accessory muscles of respiration. No adventitious breath sounds. Cardiovascular: S1, S2 heard. Irregularly irregular rhythm. Abdomen: Distended. Bowel sounds positive in all 4 quadrants. Left lower quadrant tenderness. Genitourinary: Deferred. Extremities: No cyanosis, no clubbing. Bilateral lower extremity 2+ pitting edema. Peripheral pulses palpable. Neurologic: Cranial nerves II through XII grossly intact. The patient is awake, alert, and oriented. Skin: Normal skin turgor. No skin rashes. Results Result Diagram: 08/17/16 0720 08/17/16 0720 Results 24 hrs Laboratory Tests Test 08/17/16 07:20 White Blood Count 2.6 #L Red Blood Count 2.81 L Hemoglobin 8.3 L Hematocrit 25.7 L Mean Corpuscular Volume 91.5 Mean Corpuscular Hemoglobin 29.5 Mean Corpuscular Hemoglobin Concent 32.3 Red Cell Distribution Width 16.9 H Platelet Count 58 #L Mean Platelet Volume 9.5 Neutrophils % 48.9 Lymphocytes % 20.8 Monocytes % 24.6 H Eosinophils % 4.5 Basophils % 0.8 Nucleated Red Blood Cells % 0.0 Neutrophils # 1.3 L Lymphocytes # 0.6 L Monocytes # 0.7 Eosinophils # 0.1 Basophils # 0.0 Nucleated Red Blood Cells # 0.0 Prothrombin Time 20.6 H Prothrombin Time Ratio 1.6 INR International Normalized Ratio 1.75 Activated Partial Thromboplast Time 42.8 H Sodium Level 132 L Potassium Level 3.4 L Chloride Level 110 Carbon Dioxide Level 18 L Anion Gap 7 L Blood Urea Nitrogen 10 Creatinine 0.74 Glucose Level 97 Calcium Level 7.6 L Phosphorus Level 2.9 Magnesium Level 1.7 Total Bilirubin 0.5 Direct Bilirubin 0.00 Indirect Bilirubin 0.5 Aspartate Amino Transf (AST/SGOT) 48 H Alanine Aminotransferase (ALT/SGPT) 54 Alkaline Phosphatase 292 H Ammonia 34 H Total Protein 5.5 L Albumin 2.4 L Globulin 3.10 Albumin/Globulin Ratio 0.77 Triglycerides Level 51 Cholesterol Level 61 L LDL Cholesterol, Calculated 28 HDL Cholesterol 23 L Cholesterol/HDL Ratio 2.6 Medications Medications Current Medications Ondansetron HCl (Zofran Inj) 4 mg Q6H PRN IV NAUSEA AND/OR VOMITING Last administered on 08/16/16 18:08; Admin Dose 4 MG; Start 08/16/16 at 10:00 Acetaminophen (Tylenol Tab) 650 mg Q6H PRN PO PAIN LEVEL 1-3 OR FEVER; Start at 10:00 Acetaminophen/ Hydrocodone Bitart ([place] (5/325)) 1 tab Q6H PRN PO MODERATE PAIN LEVEL 4-6; Start 08/16/16 at 10:00 Morphine Sulfate (morphine) 2 mg Q4H PRN IV SEVERE PAIN LEVEL 7-10; Start 08/16 at 10:00 Pantoprazole (Protonix Tab) 40 mg DAILY@06 PO Last administered on 08/17/16 06 :42; Admin Dose 40 MG; Start 08/17/16 at 06:00 Ferrous Sulfate (Ferrous Sulfate (Ec)) 325 mg DAILY PO Last administered on 10:21; Admin Dose 325 MG; Start 08/17/16 at 09:00 Levetiracetam (Keppra) 2,000 mg Q12H PO Last administered on 08/17/16 10:20; Admin Dose 2,000 MG; Start 08/16/16 at 10:00 Propranolol HCl (Inderal) 10 mg BID PO Last administered on 08/17/16 10:21; Admin Dose 10 MG; Start 08/16/16 at 21:00 Zinc Sulfate 220 mg 220 mg DAILY PO Last administered on 08/17/16 10:21; Admin Dose 220 MG; Start 08/17/16 at 09:00 Metronidazole 100 ml @ 100 mls/hr Q8 IVPB Last administered on 08/17/16 14:38 ; Admin Dose 100 MLS/HR; Start 08/16/16 at 14:00 Potassium Chloride/Dextrose/ Sodium Chloride (KCl/D5-NS) 1,000 ml @ 60 mls/hr [id number] IV Last administered on 08/17/16 14:38; Admin Dose 60 MLS/HR; Start at 17:00 Lorazepam (Ativan) 0.5 mg Q6H PRN PO ANXIETY; Start 08/16/16 at 16:30 Furosemide (Lasix) 20 mg DAILY IV Last administered on 08/17/16 10:20; Admin Dose 20 MG; Start 08/17/16 at 09:00 Vancomycin HCl 250 mg 250 mg Q6 PO Last administered on 08/17/16 14:38; Admin Dose 250 MG; Start 08/17/16 at 14:30 Levofloxacin/ Dextrose (Levaquin 750 Mg/ D5W 150 ml (Pmx)) 150 ml @ 100 mls/hr Q24H IVPB ; Start 08/17/16 at 21:00 MALU CORONADO NP Aug 17, 2016 15:15
[2016-08-17] MEDS ORDERED: POTASSIUM CHLORIDE (SR) 10 MEQ TAB PO ONE (15:30)
--- NOTE | 2016-08-17 16:06 | PN ---
Date/Time of Note Date/Time of Note DATE: 08/17/16 TIME: 16:01 Assessment/Plan VTE Prophylaxis VTE Prophylaxis Intervention: SCD's Lines/Catheters IV Catheter Type (from [facility]): Peripheral IV Urinary Cath still in place: No Assessment/Plan Assessment/Plan Assessment * Transaminitis * Anemia Chronic * Diarrhea/abdominal pain C difficile CT scan of pelvis . Diverticuli are seen within the descending and sigmoid colon and there is stranding within the fat along the descending colon raising the suspicion of diverticulitis. There is no evidence of bowel obstruction. Extensive cholelithiasis with the gallbladder mildly distended. No gallbladder wall thickening or bile duct dilatation is evident and the pancreas is partially fatty replaced. . The liver is small with no focal lesion and the spleen is mildly enlarged * Morbid obesity * History of C difficile * Seizure disorder Plan * Continue present management * case discussed with Dr Hall * further orders will depend on clinical course Subjective 24 Hr Interval Summary Free Text/Dictation * Course reviewed with RN * Patient seen and examined * (+) C difficile * denies abdominal pain Exam/Review of Systems Vital Signs Vitals Vital Signs Date Time Temp Pulse Resp B/P Pulse Ox O2 Delivery O2 Flow Rate FiO2 08/17/16 10:18 92 18 99/62 08/17/16 07:32 98.5 96 08/16/16 10:43 Room Air 08/16/16 04:23 2 Intake and Output 08/16/16 08/16/16 08/17/16 15:00 23:00 07:00 Intake Total 100 ml 1310 ml Balance 100 ml 1310 ml Exam Constitutional: alert, oriented Head: atraumatic, normocephalic Neck: non-tender, supple Respiratory: clear to auscultation, normal air movement Cardiovascular: nl pulses, regular rate and rhythm Gastrointestinal: bowel sounds, distended, non-tender, soft, No rebound or guarding Musculoskeletal: muscle weakness, swelling Extremities: pitting pedal edema Neurological: nl mental status, nl speech, nl strength Skin: nl turgor, No rash or lesions Results Result Diagram: 08/17/1671908/17/16719 Results 24 hrs Laboratory Tests Test 08/17/16 07:20 White Blood Count 2.6 #L Red Blood Count 2.81 L Hemoglobin 8.3 L Hematocrit 25.7 L Mean Corpuscular Volume 91.5 Mean Corpuscular Hemoglobin 29.5 Mean Corpuscular Hemoglobin Concent 32.3 Red Cell Distribution Width 16.9 H Platelet Count 58 #L Mean Platelet Volume 9.5 Neutrophils % 48.9 Lymphocytes % 20.8 Monocytes % 24.6 H Eosinophils % 4.5 Basophils % 0.8 Nucleated Red Blood Cells % 0.0 Neutrophils # 1.3 L Lymphocytes # 0.6 L Monocytes # 0.7 Eosinophils # 0.1 Basophils # 0.0 Nucleated Red Blood Cells # 0.0 Prothrombin Time 20.6 H Prothrombin Time Ratio 1.6 INR International Normalized Ratio 1.75 Activated Partial Thromboplast Time 42.8 H Sodium Level 132 L Potassium Level 3.4 L Chloride Level 110 Carbon Dioxide Level 18 L Anion Gap 7 L Blood Urea Nitrogen 10 Creatinine 0.74 Glucose Level 97 Calcium Level 7.6 L Phosphorus Level 2.9 Magnesium Level 1.7 Total Bilirubin 0.5 Direct Bilirubin 0.00 Indirect Bilirubin 0.5 Aspartate Amino Transf (AST/SGOT) 48 H Alanine Aminotransferase (ALT/SGPT) 54 Alkaline Phosphatase 292 H Ammonia 34 H Total Protein 5.5 L Albumin 2.4 L Globulin 3.10 Albumin/Globulin Ratio 0.77 Triglycerides Level 51 Cholesterol Level 61 L LDL Cholesterol, Calculated 28 HDL Cholesterol 23 L Cholesterol/HDL Ratio 2.6 Medications Medications Current Medications Ondansetron HCl (Zofran Inj) 4 mg Q6H PRN IV NAUSEA AND/OR VOMITING Last administered on 08/16/16 18:08; Admin Dose 4 MG; Start 08/16/16 at 10:00 Acetaminophen (Tylenol Tab) 650 mg Q6H PRN PO PAIN LEVEL 1-3 OR FEVER; Start at 10:00 Acetaminophen/ Hydrocodone Bitart ([place] (5/325)) 1 tab Q6H PRN PO MODERATE PAIN LEVEL 4-6; Start 08/16/16 at 10:00 Morphine Sulfate (morphine) 2 mg Q4H PRN IV SEVERE PAIN LEVEL 7-10; Start 08/16 at 10:00 Pantoprazole (Protonix Tab) 40 mg DAILY@06 PO Last administered on 08/17/16 06 :42; Admin Dose 40 MG; Start 08/17/16 at 06:00 Ferrous Sulfate (Ferrous Sulfate (Ec)) 325 mg DAILY PO Last administered on 10:21; Admin Dose 325 MG; Start 08/17/16 at 09:00 Levetiracetam (Keppra) 2,000 mg Q12H PO Last administered on 08/17/16 10:20; Admin Dose 2,000 MG; Start 08/16/16 at 10:00 Propranolol HCl (Inderal) 10 mg BID PO Last administered on 08/17/16 10:21; Admin Dose 10 MG; Start 08/16/16 at 21:00 Zinc Sulfate 220 mg 220 mg DAILY PO Last administered on 08/17/16 10:21; Admin Dose 220 MG; Start 08/17/16 at 09:00 Metronidazole 100 ml @ 100 mls/hr Q8 IVPB Last administered on 08/17/16 14:38 ; Admin Dose 100 MLS/HR; Start 08/16/16 at 14:00 Potassium Chloride/Dextrose/ Sodium Chloride (KCl/D5-NS) 1,000 ml @ 60 mls/hr [id number] IV Last administered on 08/17/16 14:38; Admin Dose 60 MLS/HR; Start at 17:00 Lorazepam (Ativan) 0.5 mg Q6H PRN PO ANXIETY; Start 08/16/16 at 16:30 Furosemide (Lasix) 20 mg DAILY IV Last administered on 08/17/16 10:20; Admin Dose 20 MG; Start 08/17/16 at 09:00 Vancomycin HCl 250 mg 250 mg Q6 PO Last administered on 08/17/16 14:38; Admin Dose 250 MG; Start 08/17/16 at 14:30 Levofloxacin/ Dextrose (Levaquin 750 Mg/ D5W 150 ml (Pmx)) 150 ml @ 100 mls/hr Q24H IVPB ; Start 08/17/16 at 21:00 JERRY BEVERLY NP Aug 17, 2016 16:06
[2016-08-17 19:41] VITALS: BP 101/51; RESP 16
[2016-08-17] MEDS: LEVOFLOXACIN 750MG/D5W (PMX) 150 ML IVPB SCH (21:28)
[2016-08-18] MEDS: VANCOMYCIN HCL 250 MG/5ML POSYG PO SCH ×4 (06:12→23:14)
[2016-08-18] MEDS: metroNIDAZOLE 500 MG/NS (PMX) 100 ML IVPB SCH ×3 (06:13→21:59)
[2016-08-18] MEDS: PANTOPRAZOLE (EC) 40 MG TAB PO SCH (06:13)
[2016-08-18 07:52] VITALS: BP 96/51; RESP 18
[2016-08-18 08:32] LABS: ADD SCAN DIFF NO
[2016-08-18 08:37] LABS: ABNORMAL IP MESSAGE 1; HEMATOCRIT 25.3 % (42.0-52.0); HEMOGLOBIN 8.1 g/dl (14.0-18.0); MEAN CORPUSCULAR HEMOGLOBIN 29.6 pg (29.0-33.0); MEAN CORPUSCULAR VOLUME 92.3 fl (82.0-101.0); MEAN PLATELET VOLUME 10.2 fl (7.4-10.4); PLATELET COUNT 50 10^3/UL (140-415); RED BLOOD COUNT 2.74 10^6/ul (4.70-6.10); RED CELL DISTRIBUTION WIDTH 16.7 % (11.5-14.5)
[2016-08-18] MEDS: ZINC SULFATE 220 MG CAP PO SCH (08:58)
[2016-08-18] MEDS: FERROUS SULFATE (EC) 325 MG TAB PO SCH (08:58)
[2016-08-18] MEDS: PROPRANOLOL 10 MG TAB PO SCH ×2 (08:58→20:39)
[2016-08-18 09:00] VITALS: BP 93/52; PULSE 82
[2016-08-18 09:07] LABS: IRON 28 ug/dl (35-150)
[2016-08-18 09:08] LABS: MAGNESIUM 1.6 mg/dl (1.7-2.5); PHOSPHORUS 2.9 mg/dl (2.5-4.9)
[2016-08-18 09:16] LABS: TOTAL IRON BINDING CAPACITY 169 ug/dl (241-421)
[2016-08-18 09:48] VITALS: BP 93/60; PULSE 70
[2016-08-18] MEDS: LEVETIRACETAM 500 MG TAB PO SCH ×2 (09:48→21:59)
[2016-08-18] MEDS: FUROSEMIDE 20 MG INJ IV SCH (09:48)
[2016-08-18 09:53] LABS: CALCIUM 7.4 mg/dl (8.4-10.2); CREATININE 0.79 mg/dl (0.61-1.24); POTASSIUM 3.8 mmol/L (3.5-5.1)
--- NOTE | 2016-08-18 10:30 | PN ---
Date/Time of Note Date/Time of Note DATE: 08/18/16 TIME: 10:28 Assessment/Plan VTE Prophylaxis VTE Prophylaxis Intervention: SCD's Lines/Catheters IV [facility]from [facility] Saline Lock Urinary Cath still in place: No Assessment/Plan Chief Complaint/Hosp Course 1. Sepsis secondary to underlying urinary tract infection and C. difficile colitis. Continue antimicrobials. The patient has no evidence of any septic shock. 2. Liver cirrhosis. The patient's ammonia level is within normal limits. The patient will be gently diuresed. The patient's chest x-ray showing no evidence of any pulmonary vascular congestion. 3. Abdominal pain. Abdominal CT scan showing moderate amount of water density free intraperitoneal fluid. The CT also revealed diverticuli within the descending colon and sigmoid colon and there is stranding within the fat along the descending colon raising the suspicion of diverticulitis. CT also revealed extensive cholelithiasis with gallbladder mildly distended with no gallbladder wall thickening or bile duct dilatation. Patient being followed by gastroenterology. 4. Seizure disorder. The patient's antiseizure medications will be continued. 5. Normocytic normochromic anemia. Most probably anemia of chronic disease. Iron panel showing iron deficiency. Patient already on iron supplements. 6. Thrombocytopenia. Most probably secondary to underlying liver cirrhosis. Will monitor the H&H closely. Will avoid any anticoagulants. 7. C. difficile colitis. Continue antimicrobials. Enteric precautions. 8. Urinary tract infection. No antibiotics. Will involve infectious diseases on the case. 9. Fluids, electrolytes, and nutrition. The patient was started on clear liquids as per gastroenterology. 10. DVT prophylaxis. Bilateral sequential compression devices. 11. Gastrointestinal prophylaxis. Proton pump inhibitors. 11. Plan. Continue antimicrobials. Advancement of diet as per gastroenterology. Replete magnesium. Case discussed with Dr. Padilla. Problems: Subjective 24 Hr Interval Summary Free Text/Dictation Denies any abdominal pain. Exam/Review of Systems Vital Signs Vitals Vital Signs Date Time Temp Pulse Resp B/P Pulse Ox O2 Delivery O2 Flow Rate FiO2 08/18/16 09:48 70 93/60 08/18/16 07:52 97.9 18 98 08/16/16 10:43 Room Air 08/16/16 04:23 2 Intake and Output 08/17/16 08/17/16 08/18/16 15:00 23:00 07:00 Intake Total 490 ml 760 ml 1720 ml Balance 490 ml 760 ml 1720 ml Exam General: Morbidly obese 56 year-old male lying in bed in no apparent distress. HEENT: Normocephalic, atraumatic. Eyes: Anicteric sclerae, conjunctivae clear. ENT: Nasal septum midline, oral mucosa moist. Neck supple, no JVD noticed. Respiratory: Bilaterally clear breath sounds. No use of accessory muscles of respiration. No adventitious breath sounds. Cardiovascular: S1, S2 heard. Regular rate and rhythm. Abdomen: Distended. Bowel sounds positive in all 4 quadrants. Left lower quadrant tenderness. Genitourinary: Deferred. Extremities: No cyanosis, no clubbing. Bilateral lower extremity 2+ pitting edema. Peripheral pulses palpable. Neurologic: Cranial nerves II through XII grossly intact. The patient is awake, alert, and oriented. Skin: Normal skin turgor. No skin rashes. Results Result Diagram: 08/18/16 0715 08/18/16 0715 Results 24 hrs Laboratory Tests Test 08/18/16 07:15 White Blood Count 1.7 #L Red Blood Count 2.74 L Hemoglobin 8.1 L Hematocrit 25.3 L Mean Corpuscular Volume 92.3 Mean Corpuscular Hemoglobin 29.6 Mean Corpuscular Hemoglobin Concent 32.0 Red Cell Distribution Width 16.7 H Platelet Count 50 L Mean Platelet Volume 10.2 Sodium Level 135 Potassium Level 3.8 Chloride Level 111 H Carbon Dioxide Level 20 L Anion Gap 8 Blood Urea Nitrogen 9 Creatinine 0.79 Glucose Level 76 Calcium Level 7.4 L Phosphorus Level 2.9 Magnesium Level 1.6 L Iron Level 28 L Total Iron Binding Capacity 169 L Percent Iron Saturation 17 L Ferritin 80.0 Medications Medications Current Medications Ondansetron HCl (Zofran Inj) 4 mg Q6H PRN IV NAUSEA AND/OR VOMITING Last administered on 08/16/16 18:08; Admin Dose 4 MG; Start 08/16/16 at 10:00 Acetaminophen (Tylenol Tab) 650 mg Q6H PRN PO PAIN LEVEL 1-3 OR FEVER Last administered on 08/17/16 22:59; Admin Dose 650 MG; Start 08/16/16 at 10:00 Acetaminophen/ Hydrocodone Bitart ([place] (5/325)) 1 tab Q6H PRN PO MODERATE PAIN LEVEL 4-6; Start 08/16/16 at 10:00 Morphine Sulfate (morphine) 2 mg Q4H PRN IV SEVERE PAIN LEVEL 7-10; Start 08/16 at 10:00 Pantoprazole (Protonix Tab) 40 mg DAILY@06 PO Last administered on 08/18/16 06 :13; Admin Dose 40 MG; Start 08/17/16 at 06:00 Ferrous Sulfate (Ferrous Sulfate (Ec)) 325 mg DAILY PO Last administered on 08:58; Admin Dose 325 MG; Start 08/17/16 at 09:00 Levetiracetam (Keppra) 2,000 mg Q12H PO Last administered on 08/18/16 09:48; Admin Dose 2,000 MG; Start 08/16/16 at 10:00 Propranolol HCl (Inderal) 10 mg BID PO Last administered on 08/18/16 08:58; Admin Dose 10 MG; Start 08/16/16 at 21:00 Zinc Sulfate 220 mg 220 mg DAILY PO Last administered on 08/18/16 08:58; Admin Dose 220 MG; Start 08/17/16 at 09:00 Metronidazole (Flagyl 500 Mg (Pmx)) 100 ml @ 100 mls/hr Q8 IVPB Last administered on 08/18/16 06:13; Admin Dose 100 MLS/HR; Start 08/16/16 at 14:00 Lorazepam (Ativan) 0.5 mg Q6H PRN PO ANXIETY; Start 08/16/16 at 16:30 Furosemide (Lasix) 20 mg DAILY IV Last administered on 08/18/16 09:48; Admin Dose 20 MG; Start 08/17/16 at 09:00 Vancomycin HCl 250 mg 250 mg Q6 PO Last administered on 08/18/16 06:12; Admin Dose 250 MG; Start 08/17/16 at 14:30 Levofloxacin/ Dextrose (Levaquin 750 Mg/ D5W 150 ml (Pmx)) 150 ml @ 100 mls/hr Q24H IVPB Last administered on 08/17/16 21:28; Admin Dose 100 MLS/HR; Start at 21:00 MALU CORONADO NP Aug 18, 2016 10:30
[2016-08-18 10:39] LABS: EOSINOPHILS # 0.1 10^3/ul (0.0-0.5); LYMPHOCYTES # 0.4 10^3/ul (0.8-2.9); MONOCYTE # 0.3 10^3/ul (0.3-0.9); NEUTROPHIL # 0.8 10^3/ul (1.6-7.5); PLATELET ESTIMATE PLT APPEAR DECREASED
[2016-08-18] MEDS ORDERED: MAGNESIUM SULFATE 2 GM/50 ML 50 ML IVPB SCH (11:30)
--- NOTE | 2016-08-18 16:23 | CONS ---
Date/Time of Note Date/Time of Note DATE: 08/18/16 TIME: 16:22 Consultation Date/Type/Reason Admit Date/Time Aug 16, 2016 at 05:49 Reason for Consultation This is Dr. Joshua Galvan dictating infectious disease consultation on Isaac Farrar date of admission 627 date of consultation and dictation 2016 this is an infectious disease consult the reason for consultation is antibiotic management. Patient is a 56-year-old male with numerous problems who presented with a temperature of 100.8 and possible spontaneous bacterial peritonitis. His past problems include: 1 morbid obesity 2 history of cirrhosis of liver with ascites 3 leukemia status post radiation and chemotherapy in the past when he was 19 years old. Patient received radiation and chemotherapy in the past 4 seizure disorder 5 history of C. difficile colitis treated with oral vancomycin 6 history of esophageal varices Acutely the patient presented to the emergency room with multiple multiple episodes of nonbloody vomiting as well as diarrhea. He also complains of increased abdominal distention and abdominal pain over the last few days. On admission his white count was 8.0 H&H of 9.6 and 29.2 platelet count 78,000 BUN/ creatinine 10/0.79 glucose of 85. Today the patient is leukopenic with a white count of 1.7 H&H 8.1 and 25.3 platelet count of 50,000 is making him pancytopenic. BUN/creatinine's 10/0.74 urine was negative for nitrite and leukocyte esterase. His urine culture from a catheterized urine on the showed greater than 10 to the fifth K pneumoniae and 50 is 60,000 colonies per milliliter of E. coli and mixed gram-positive organisms greater than 10 to the fifth the K pneumoniae and E. coli was sensitive to cefazolin and ceftriaxone. Chest x-ray showed no evidence for active cardiopulmonary disease. Abdominal and pelvic CT scan shows moderate amount of free intraperitoneal fluid no free air there is stranding within the fat along the descending colon raising the suspicion of diverticulitis. Extensive cholelithiasis with the gallbladder mildly distended without gallbladder wall thickening or bile duct dilatation. Small left pleural effusion accumulation. Patient is currently on Levaquin and vancomycin. Past medical history is as outlined. No past surgical history Family history noncontributory Social history: He is a former smoker he does not drink or abuse drugs. Allergy to penicillin but not to sulfa or or foods Medication chart Review of systems is as per HPI On physical examination patient is a morbidly obese male who is alert and oriented 3 in no acute distress vital signs are stable he is afebrile on admission T-max 100.8 Skin without generalized rash HEENT within normal limits Neck is supple lymph nodes nonpalpable Chest decreased breath sounds at the bases Heart without murmur gallop Abdomen is soft, obese, with a fluid wave. Extremities: 1-2+ edema with stasis changes Neurological: No focal neurological abnormalities Patient was seen by Dr. DIAZ, GI specialist. He noted transaminitis, anemia , diarrhea and abdominal pain, and raise the possibility of diverticulitis. At this point the patient is on vancomycin and Flagyl and metronidazole. Stools for culture and ova and parasites are pending. We will continue him on his current regimen and observe his blood picture. We may benefit from a hematological evaluation. Thank you for this finisher hand. Eyes: no complaints ENT: no complaints Respiratory: no complaints Cardiovascular: no complaints Gastrointestinal: diarrhea, nausea, pain, vomiting Genitourinary: no complaints Musculoskeletal: no complaints Skin: no complaints Neurologic: no complaints Endocrine: no complaints Lymphatic: no complaints Psychological: no complaints Immunologic: no complaints Past Medical History Medical History: colitis, other (Liver cirrhosis, seizure disorder, obesity) Past Surgical History Past Surgical Hx: other (surgery for polyp trachea) Social History Alcohol Use: none Smoking Status: Never smoker Drug Use: none Exam/Review of Systems Vital Signs Vitals Vital Signs Date Time Temp Pulse Resp B/P Pulse Ox O2 Delivery O2 Flow Rate FiO2 08/18/16 09:48 70 93/60 08/18/16 07:52 97.9 18 98 08/16/16 10:43 Room Air 08/16/16 04:23 2 Intake and Output 08/17/16 08/17/16 08/18/16 15:00 23:00 07:00 Intake Total 490 ml 760 ml 1720 ml Balance 490 ml 760 ml 1720 ml Results Result Diagram: 08/18/16 0715 08/18/16 0715 Results 24 hrs Laboratory Tests Test 08/18/16 07:15 White Blood Count 1.7 #L Red Blood Count 2.74 L Hemoglobin 8.1 L Hematocrit 25.3 L Mean Corpuscular Volume 92.3 Mean Corpuscular Hemoglobin 29.6 Mean Corpuscular Hemoglobin Concent 32.0 Red Cell Distribution Width 16.7 H Platelet Count 50 L Mean Platelet Volume 10.2 Neutrophils % 48.0 Band Neutrophils % 3.0 Lymphocytes % 24.0 Monocytes % 16.0 H Eosinophils % 8.0 H Basophils % 1.0 Neutrophils # 0.8 L Lymphocytes # 0.4 L Monocytes # 0.3 Eosinophils # 0.1 Basophils # 0.0 Platelet Estimate PLT APPEAR DECREASED Sodium Level 135 Potassium Level 3.8 Chloride Level 111 H Carbon Dioxide Level 20 L Anion Gap 8 Blood Urea Nitrogen 9 Creatinine 0.79 Glucose Level 76 Calcium Level 7.4 L Phosphorus Level 2.9 Magnesium Level 1.6 L Iron Level 28 L Total Iron Binding Capacity 169 L Percent Iron Saturation 17 L Ferritin 80.0 Medications Medications Current Medications Ondansetron HCl (Zofran Inj) 4 mg Q6H PRN IV NAUSEA AND/OR VOMITING Last administered on 08/16/16 18:08; Admin Dose 4 MG; Start 08/16/16 at 10:00 Acetaminophen (Tylenol Tab) 650 mg Q6H PRN PO PAIN LEVEL 1-3 OR FEVER Last administered on 08/17/16 22:59; Admin Dose 650 MG; Start 08/16/16 at 10:00 Acetaminophen/ Hydrocodone Bitart ([place] (5/325)) 1 tab Q6H PRN PO MODERATE PAIN LEVEL 4-6 Last administered on 08/18/16 14:25; Admin Dose 1 TAB; Start at 10:00 Morphine Sulfate (morphine) 2 mg Q4H PRN IV SEVERE PAIN LEVEL 7-10; Start 08/16 at 10:00 Pantoprazole (Protonix Tab) 40 mg DAILY@06 PO Last administered on 08/18/16 06 :13; Admin Dose 40 MG; Start 08/17/16 at 06:00 Ferrous Sulfate (Ferrous Sulfate (Ec)) 325 mg DAILY PO Last administered on 08:58; Admin Dose 325 MG; Start 08/17/16 at 09:00 Levetiracetam (Keppra) 2,000 mg Q12H PO Last administered on 08/18/16 09:48; Admin Dose 2,000 MG; Start 08/16/16 at 10:00 Propranolol HCl (Inderal) 10 mg BID PO Last administered on 08/18/16 08:58; Admin Dose 10 MG; Start 08/16/16 at 21:00 Zinc Sulfate 220 mg 220 mg DAILY PO Last administered on 08/18/16 08:58; Admin Dose 220 MG; Start 08/17/16 at 09:00 Metronidazole (Flagyl 500 Mg (Pmx)) 100 ml @ 100 mls/hr Q8 IVPB Last administered on 08/18/16 14:25; Admin Dose 100 MLS/HR; Start 08/16/16 at 14:00 Lorazepam (Ativan) 0.5 mg Q6H PRN PO ANXIETY; Start 08/16/16 at 16:30 Furosemide (Lasix) 20 mg DAILY IV Last administered on 08/18/16 09:48; Admin Dose 20 MG; Start 08/17/16 at 09:00 Vancomycin HCl 250 mg 250 mg Q6 PO Last administered on 08/18/16 12:55; Admin Dose 250 MG; Start 08/17/16 at 14:30 Levofloxacin/ Dextrose (Levaquin 750 Mg/ D5W 150 ml (Pmx)) 150 ml @ 100 mls/hr Q24H IVPB Last administered on 08/17/16 21:28; Admin Dose 100 MLS/HR; Start at 21:00 JOSHUA GALVAN MD Aug 18, 2016 16:23
[2016-08-18 19:57] VITALS: BP 97/51; RESP 20
[2016-08-18] MEDS: LEVOFLOXACIN 750MG/D5W (PMX) 150 ML IVPB SCH (20:36)
[2016-08-19] MEDS: metroNIDAZOLE 500 MG/NS (PMX) 100 ML IVPB SCH ×3 (06:15→22:23)
[2016-08-19] MEDS: VANCOMYCIN HCL 250 MG/5ML POSYG PO SCH ×3 (06:15→18:40)
[2016-08-19] MEDS: PANTOPRAZOLE (EC) 40 MG TAB PO SCH (06:15)
[2016-08-19 07:29] VITALS: BP 101/56; RESP 18
[2016-08-19 08:53] LABS: WHITE BLOOD COUNT 1.7 10^3/ul (4.8-10.8)
[2016-08-19 08:53] LABS: ABNORMAL IP MESSAGE 1; BASOPHILS % 0.5 % (0.0-2.0); EOSINOPHILS # 0.2 10^3/ul (0.0-0.5); EOSINOPHILS % 7.8 % (0.0-7.0); HEMATOCRIT 25.6 % (42.0-52.0); HEMOGLOBIN 8.5 g/dl (14.0-18.0); LYMPHOCYTES # 0.5 10^3/ul (0.8-2.9); LYMPHOCYTES % 24.8 % (15.0-51.0); MEAN CORPUSCULAR HEMOGLOBIN 30.5 pg (29.0-33.0); MEAN CORPUSCULAR HGB CONC 33.2 g/dl (32.0-37.0); MEAN CORPUSCULAR VOLUME 91.8 fl (82.0-101.0); MEAN PLATELET VOLUME 9.3 fl (7.4-10.4); MONOCYTE # 0.3 10^3/ul (0.3-0.9); MONOCYTES % 14.6 % (0.0-11.0); NEUTROPHILS % 50.4 % (39.0-77.0); PLATELET COUNT 58 10^3/UL (140-415); RED BLOOD COUNT 2.79 10^6/ul (4.70-6.10); RED CELL DISTRIBUTION WIDTH 16.7 % (11.5-14.5); WHITE BLOOD COUNT 2.1 10^3/ul (4.8-10.8)
[2016-08-19 09:00] LABS: ADD SCAN DIFF NO
[2016-08-19] MEDS: PROPRANOLOL 10 MG TAB PO SCH ×2 (09:00→20:41)
[2016-08-19] MEDS: FUROSEMIDE 20 MG INJ IV SCH (09:00)
[2016-08-19 09:14] LABS: MAGNESIUM 1.9 mg/dl (1.7-2.5); PHOSPHORUS 3.1 mg/dl (2.5-4.9)
[2016-08-19 09:19] LABS: ALBUMIN 2.3 g/dl (3.3-4.9); ALBUMIN/GLOBULIN RATIO 0.74; BILIRUBIN,INDIRECT 0.3 mg/dl (0-1.1); BILIRUBIN,TOTAL 0.3 mg/dl (0.2-1.3); CALCIUM 7.5 mg/dl (8.4-10.2); CREATININE 0.77 mg/dl (0.61-1.24); POTASSIUM 3.4 mmol/L (3.5-5.1); TOTAL PROTEIN 5.4 g/dl (6.1-8.1)
[2016-08-19] MEDS: ZINC SULFATE 220 MG CAP PO SCH (09:24)
[2016-08-19] MEDS: FERROUS SULFATE (EC) 325 MG TAB PO SCH (09:24)
[2016-08-19] MEDS: LEVETIRACETAM 500 MG TAB PO SCH ×2 (09:25→22:23)
--- NOTE | 2016-08-19 10:54 | PN ---
Date/Time of Note Date/Time of Note DATE: 08/19/16 TIME: 10:52 Assessment/Plan VTE Prophylaxis VTE Prophylaxis Intervention: SCD's Lines/Catheters IV [facility] Type (from [facility]): Saline Lock Urinary Cath still in place: No Assessment/Plan Chief Complaint/Hosp Course 1. Sepsis secondary to underlying urinary tract infection and C. difficile colitis. Continue antimicrobials. The patient has no evidence of any septic shock. 2. Liver cirrhosis. The patient's ammonia level is within normal limits. The patient will be gently diuresed. The patient's chest x-ray showing no evidence of any pulmonary vascular congestion. 3. Abdominal pain. Abdominal CT scan showing moderate amount of water density free intraperitoneal fluid. The CT also revealed diverticuli within the descending colon and sigmoid colon and there is stranding within the fat along the descending colon raising the suspicion of diverticulitis. CT also revealed extensive cholelithiasis with gallbladder mildly distended with no gallbladder wall thickening or bile duct dilatation. Patient being followed by gastroenterology. 4. Seizure disorder. The patient's antiseizure medications will be continued. 5. Normocytic normochromic anemia. Most probably anemia of chronic disease. Iron panel showing iron deficiency. Patient already on iron supplements. 6. Thrombocytopenia. Most probably secondary to underlying liver cirrhosis. Will monitor the H&H closely. Will avoid any anticoagulants. 7. C. difficile colitis. Continue antimicrobials. Enteric precautions. 8. Urinary tract infection. Continue antibiotics. Infectious diseases on the case. 9. Fluids, electrolytes, and nutrition. The patient was started on clear liquids as per gastroenterology. 10. DVT prophylaxis. Bilateral sequential compression devices. 11. Gastrointestinal prophylaxis. Proton pump inhibitors. 12. Plan. Continue antimicrobials. Advancement of diet as per gastroenterology. Replete potassium. Obtain hematology consult for underlying pancytopenia. Case discussed with Dr. Padilla. Problems: Subjective 24 Hr Interval Summary Free Text/Dictation Denies any abdominal pain. Remains afebrile. Exam/Review of Systems Vital Signs Vitals Vital Signs Date Time Temp Pulse Resp B/P Pulse Ox O2 Delivery O2 Flow Rate FiO2 08/19/16 07:29 97.9 73 18 101/56 98 08/16/16 10:43 Room Air 08/16/16 04:23 2 Intake and Output 08/18/16 08/18/16 08/19/16 15:00 23:00 07:00 Intake Total 880 ml 120 ml Balance 880 ml 120 ml Exam General: Morbidly obese 56 year-old male lying in bed in no apparent distress. HEENT: Normocephalic, atraumatic. Eyes: Anicteric sclerae, conjunctivae clear. ENT: Nasal septum midline, oral mucosa moist. Neck supple, no JVD noticed. Respiratory: Bilaterally clear breath sounds. No use of accessory muscles of respiration. No adventitious breath sounds. Cardiovascular: S1, S2 heard. Regular rate and rhythm. Abdomen: Distended. Bowel sounds positive in all 4 quadrants. Left lower quadrant tenderness. Genitourinary: Deferred. Extremities: No cyanosis, no clubbing. Bilateral lower extremity 2+ pitting edema. Peripheral pulses palpable. Neurologic: Cranial nerves II through XII grossly intact. The patient is awake, alert, and oriented. Skin: Normal skin turgor. No skin rashes. Results Result Diagram: 08/19/16 0825 08/19/16 0825 Results 24 hrs Laboratory Tests Test 08/19/16 08:25 White Blood Count 2.1 #L Red Blood Count 2.79 L Hemoglobin 8.5 L Hematocrit 25.6 L Mean Corpuscular Volume 91.8 Mean Corpuscular Hemoglobin 30.5 Mean Corpuscular Hemoglobin Concent 33.2 Red Cell Distribution Width 16.7 H Platelet Count 58 L Mean Platelet Volume 9.3 Neutrophils % 50.4 Lymphocytes % 24.8 Monocytes % 14.6 H Eosinophils % 7.8 H Basophils % 0.5 Nucleated Red Blood Cells % 0.0 Neutrophils # 1.0 L Lymphocytes # 0.5 L Monocytes # 0.3 Eosinophils # 0.2 Basophils # 0.0 Nucleated Red Blood Cells # 0.0 Sodium Level 135 Potassium Level 3.4 L Chloride Level 108 Carbon Dioxide Level 20 L Anion Gap 10 Blood Urea Nitrogen 8 Creatinine 0.77 Glucose Level 70 Calcium Level 7.5 L Phosphorus Level 3.1 Magnesium Level 1.9 Total Bilirubin 0.3 Direct Bilirubin 0.00 Indirect Bilirubin 0.3 Aspartate Amino Transf (AST/SGOT) 44 Alanine Aminotransferase (ALT/SGPT) 51 Alkaline Phosphatase 255 H Ammonia 20 Total Protein 5.4 L Albumin 2.3 L Globulin 3.10 Albumin/Globulin Ratio 0.74 Medications Medications Current Medications Ondansetron HCl (Zofran Inj) 4 mg Q6H PRN IV NAUSEA AND/OR VOMITING Last administered on 6/27/17at 18:08; Admin Dose 4 MG; Start 08/16/16 at 10:00 Acetaminophen (Tylenol Tab) 650 mg Q6H PRN PO PAIN LEVEL 1-3 OR FEVER Last administered on 08/17/16 22:59; Admin Dose 650 MG; Start 08/16/16 at 10:00 Acetaminophen/ Hydrocodone Bitart ([place] (5/325)) 1 tab Q6H PRN PO MODERATE PAIN LEVEL 4-6 Last administered on 08/18/16 14:25; Admin Dose 1 TAB; Start at 10:00 Morphine Sulfate (morphine) 2 mg Q4H PRN IV SEVERE PAIN LEVEL 7-10; Start 08/16 at 10:00 Pantoprazole (Protonix Tab) 40 mg DAILY@06 PO Last administered on 08/19/16 06 :15; Admin Dose 40 MG; Start 08/17/16 at 06:00 Ferrous Sulfate (Ferrous Sulfate (Ec)) 325 mg DAILY PO Last administered on 09:24; Admin Dose 325 MG; Start 08/17/16 at 09:00 Levetiracetam (Keppra) 2,000 mg Q12H PO Last administered on 08/19/16 09:25; Admin Dose 2,000 MG; Start 08/16/16 at 10:00 Propranolol HCl (Inderal) 10 mg BID PO Last administered on 08/18/16 08:58; Admin Dose 10 MG; Start 08/16/16 at 21:00 Zinc Sulfate 220 mg 220 mg DAILY PO Last administered on 08/19/16 09:24; Admin Dose 220 MG; Start 08/17/16 at 09:00 Metronidazole (Flagyl 500 Mg (Pmx)) 100 ml @ 100 mls/hr Q8 IVPB Last administered on 08/19/16 06:15; Admin Dose 100 MLS/HR; Start 08/16/16 at 14:00 Lorazepam (Ativan) 0.5 mg Q6H PRN PO ANXIETY; Start 08/16/16 at 16:30 Furosemide (Lasix) 20 mg DAILY IV Last administered on 08/18/16 09:48; Admin Dose 20 MG; Start 08/17/16 at 09:00 Vancomycin HCl 250 mg 250 mg Q6 PO Last administered on 08/19/16 06:15; Admin Dose 250 MG; Start 08/17/16 at 14:30 Levofloxacin/ Dextrose (Levaquin 750 Mg/ D5W 150 ml (Pmx)) 150 ml @ 100 mls/hr Q24H IVPB Last administered on 08/18/16 20:36; Admin Dose 100 MLS/HR; Start at 21:00 MALU CORONADO NP Aug 19, 2016 10:54
[2016-08-19] MEDS ORDERED: POTASSIUM CHLORIDE (SR) 10 MEQ TAB PO ONE (11:00)
--- NOTE | 2016-08-19 16:18 | CONS ---
Date/Time of Note Date/Time of Note DATE: 08/19/16 TIME: 16:14 Assessment/Plan Assessment/Plan Chief Complaint/Hosp Course Subjective: Patient is alert sitting comfortably in a chair denies pain no nausea vomiting diarrhea Antimicrobials: Oral vancomycin, Flagyl, Levaquin Physical examination: Morbidly obese well-developed middle-aged man who is alert in no distress HEENT within normal limits Neck is supple lymph nodes nonpalpable Chest decreased breath sounds at the bases Heart without murmur gallop Abdomen is soft, obese, with a fluid wave. Extremities: 1-2+ edema with stasis changes Neurological: No focal neurological abnormalities Assessment: 1. C. difficile colitis 2. Polymicrobial UTI 3. VRE stool colonization 4. Morbid obesity 5. Seizure disorder Plan: Patient remains stable, improving on current antimicrobials DW pt/staff Problems: Consultation Date/Type/Reason Admit Date/Time Aug 16, 2016 at 05:49 Initial Consult Date 08/16/16 Type of Consultation: ID Referring Provider: MALU CORONADO [employer] SALES MANAGER Exam/Review of Systems Vital Signs Vitals Vital Signs Date Time Temp Pulse Resp B/P Pulse Ox O2 Delivery O2 Flow Rate FiO2 08/19/16 07:29 97.9 73 18 101/56 98 08/16/16 10:43 Room Air 08/16/16 04:23 2 Intake and Output 08/18/16 08/18/16 08/19/16 15:00 23:00 07:00 Intake Total 880 ml 120 ml Balance 880 ml 120 ml Results Result Diagram: 08/19/16 0825 08/19/16 0825 Results 24 hrs Laboratory Tests Test 08/19/16 08:25 White Blood Count 2.1 #L Red Blood Count 2.79 L Hemoglobin 8.5 L Hematocrit 25.6 L Mean Corpuscular Volume 91.8 Mean Corpuscular Hemoglobin 30.5 Mean Corpuscular Hemoglobin Concent 33.2 Red Cell Distribution Width 16.7 H Platelet Count 58 L Mean Platelet Volume 9.3 Neutrophils % 50.4 Lymphocytes % 24.8 Monocytes % 14.6 H Eosinophils % 7.8 H Basophils % 0.5 Nucleated Red Blood Cells % 0.0 Neutrophils # 1.0 L Lymphocytes # 0.5 L Monocytes # 0.3 Eosinophils # 0.2 Basophils # 0.0 Nucleated Red Blood Cells # 0.0 Sodium Level 135 Potassium Level 3.4 L Chloride Level 108 Carbon Dioxide Level 20 L Anion Gap 10 Blood Urea Nitrogen 8 Creatinine 0.77 Glucose Level 70 Calcium Level 7.5 L Phosphorus Level 3.1 Magnesium Level 1.9 Total Bilirubin 0.3 Direct Bilirubin 0.00 Indirect Bilirubin 0.3 Aspartate Amino Transf (AST/SGOT) 44 Alanine Aminotransferase (ALT/SGPT) 51 Alkaline Phosphatase 255 H Ammonia 20 Total Protein 5.4 L Albumin 2.3 L Globulin 3.10 Albumin/Globulin Ratio 0.74 Medications Medications Current Medications Ondansetron HCl (Zofran Inj) 4 mg Q6H PRN IV NAUSEA AND/OR VOMITING Last administered on 08/16/16 18:08; Admin Dose 4 MG; Start 08/16/16 at 10:00 Acetaminophen (Tylenol Tab) 650 mg Q6H PRN PO PAIN LEVEL 1-3 OR FEVER Last administered on 08/17/16 22:59; Admin Dose 650 MG; Start 08/16/16 at 10:00 Acetaminophen/ Hydrocodone Bitart ([place] (5/325)) 1 tab Q6H PRN PO MODERATE PAIN LEVEL 4-6 Last administered on 08/18/16 14:25; Admin Dose 1 TAB; Start at 10:00 Morphine Sulfate (morphine) 2 mg Q4H PRN IV SEVERE PAIN LEVEL 7-10; Start 08/16 at 10:00 Pantoprazole (Protonix Tab) 40 mg DAILY@06 PO Last administered on 08/19/16 06 :15; Admin Dose 40 MG; Start 08/17/16 at 06:00 Ferrous Sulfate (Ferrous Sulfate (Ec)) 325 mg DAILY PO Last administered on 09:24; Admin Dose 325 MG; Start 08/17/16 at 09:00 Levetiracetam (Keppra) 2,000 mg Q12H PO Last administered on 08/19/16 09:25; Admin Dose 2,000 MG; Start 08/16/16 at 10:00 Propranolol HCl (Inderal) 10 mg BID PO Last administered on 08/18/16 08:58; Admin Dose 10 MG; Start 08/16/16 at 21:00 Zinc Sulfate 220 mg 220 mg DAILY PO Last administered on 08/19/16 09:24; Admin Dose 220 MG; Start 08/17/16 at 09:00 Metronidazole (Flagyl 500 Mg (Pmx)) 100 ml @ 100 mls/hr Q8 IVPB Last administered on 08/19/16 14:19; Admin Dose 100 MLS/HR; Start 08/16/16 at 14:00 Lorazepam (Ativan) 0.5 mg Q6H PRN PO ANXIETY; Start 08/16/16 at 16:30 Furosemide (Lasix) 20 mg DAILY IV Last administered on 08/18/16 09:48; Admin Dose 20 MG; Start 08/17/16 at 09:00 Vancomycin HCl 250 mg 250 mg Q6 PO Last administered on 08/19/16 12:36; Admin Dose 250 MG; Start 08/17/16 at 14:30 Levofloxacin/ Dextrose (Levaquin 750 Mg/ D5W 150 ml (Pmx)) 150 ml @ 100 mls/hr Q24H IVPB Last administered on 08/18/16 20:36; Admin Dose 100 MLS/HR; Start at 21:00 REBEKAH JERNIGAN NP Aug 19, 2016 16:18
[2016-08-19 20:10] VITALS: BP 92/51; RESP 18
[2016-08-19] MEDS: LEVOFLOXACIN 750MG/D5W (PMX) 150 ML IVPB SCH (20:41)
--- NOTE | 2016-08-19 20:46 | CONS ---
Date/Time of Note Date/Time of Note DATE: 08/19/16 TIME: 20:40 Assessment/Plan Assessment/Plan Chief Complaint/Hosp Course AML- 32 YR AGO PANCYTOPENIA UNKNOWN RECENT BASELINE CHECK SMEAR BIOCHEM W-UP CHECK FLOW NONCOMPLIANCE WITH MEDICAL CARE PT DID NOT HAVE MED CARE FOR MANY YEARS Normocytic normochromic anemia. Most probably anemia of chronic disease. Iron panel showing iron deficiency. Patient already on iron supplements. Thrombocytopenia. ? secondary to underlying liver cirrhosis. ? 2 TO SEPSIS CHECK DIC AVOID MYELOSUPPRESSIVE MEDS Will avoid any anticoagulants. Sepsis secondary to underlying urinary tract infection and C. difficile colitis. Continue antimicrobials. The patient has no evidence of any septic shock. Liver cirrhosis. The patient's ammonia level is within normal limits. The patient will be gently diuresed. The patient's chest x-ray showing no evidence of any pulmonary vascular congestion. Abdominal pain. Abdominal CT scan showing moderate amount of water density free intraperitoneal fluid. The CT also revealed diverticuli within the descending colon and sigmoid colon and there is stranding within the fat along the descending colon raising the suspicion of diverticulitis. CT also revealed extensive cholelithiasis with gallbladder mildly distended with no gallbladder wall thickening or bile duct dilatation. Patient being followed by gastroenterology. Seizure disorder. The patient's antiseizure medications will be continued. C. difficile colitis. Continue antimicrobials. Enteric precautions. Urinary tract infection. Continue antibiotics. Infectious diseases on the case. Fluids, electrolytes, and nutrition. The patient was started on clear liquids as per gastroenterology. DVT prophylaxis. Bilateral sequential compression devices. Gastrointestinal prophylaxis. Proton pump inhibitors. Problems: Consultation Date/Type/Reason Admit Date/Time Aug 16, 2016 at 05:49 Date of Consultation: Aug 19, 2016 [facility]ation: [facility] Reason for Consultation HX AML Referring Provider: MALU CORONADO NP Hx of Present Illness Patient is a 56-year-old male with numerous problems who presented with a temperature of 100.8 and possible spontaneous bacterial peritonitis. His past problems include: 1 morbid obesity 2 history of cirrhosis of liver with ascites 3 leukemia status post radiation and chemotherapy in the past when he was 19 years old. Patient received radiation and chemotherapy in the past 4 seizure disorder 5 history of C. difficile colitis treated with oral vancomycin 6 history of esophageal varices Acutely the patient presented to the emergency room with multiple multiple episodes of nonbloody vomiting as well as diarrhea. He also complains of increased abdominal distention and abdominal pain over the last few days. On admission his white count was 8.0 H&H of 9.6 and 29.2 platelet count 78,000 BUN/ creatinine 10/0.79 glucose of 85. Today the patient is leukopenic with a white count of 1.7 H&H 8.1 and 25.3 platelet count of 50,000 is making him pancytopenic. BUN/creatinine's 10/0.74 urine was negative for nitrite and leukocyte esterase. His urine culture from a catheterized urine on the showed greater than 10 to the fifth K pneumoniae and 50 is 60,000 colonies per milliliter of E. coli and mixed gram-positive organisms greater than 10 to the fifth the K pneumoniae and E. coli was sensitive to cefazolin and ceftriaxone. Chest x-ray showed no evidence for active cardiopulmonary disease. Abdominal and pelvic CT scan shows moderate amount of free intraperitoneal fluid no free air there is stranding within the fat along the descending colon raising the suspicion of diverticulitis. Extensive cholelithiasis with the gallbladder mildly distended without gallbladder wall thickening or bile duct dilatation. Small left pleural effusion accumulation. Patient is currently on Levaquin and vancomycin. Past medical history is as outlined. No past surgical history Family history noncontributory Social history: He is a former smoker he does not drink or abuse drugs. Allergy to penicillin but not to sulfa or or foods Medication chart Review of systems is as per HPI On physical examination patient is a morbidly obese male who is alert and oriented 3 in no acute distress vital signs are stable he is afebrile on admission T-max 100.8 Skin without generalized rash HEENT within normal limits Neck is supple lymph nodes nonpalpable Chest decreased breath sounds at the bases Heart without murmur gallop Abdomen is soft, obese, with a fluid wave. Extremities: 1-2+ edema with stasis changes Neurological: No focal neurological abnormalities Patient was seen by Dr. DIAZ, GI specialist. He noted transaminitis, anemia , diarrhea and abdominal pain, and raise the possibility of diverticulitis. At this point the patient is on vancomycin and Flagyl and metronidazole. Stools for culture and ova and parasites are pending. We will continue him on his current regimen and observe his blood picture. We may benefit from a hematological evaluation. Thank you for this burr filer. Eyes: no complaints ENT: no complaints Respiratory: no complaints Cardiovascular: no complaints Gastrointestinal: diarrhea, nausea, pain, vomiting Genitourinary: no complaints Musculoskeletal: no complaints Skin: no complaints Neurologic: no complaints Endocrine: no complaints Lymphatic: no complaints Psychological: no complaints Immunologic: no complaints Past Medical History Medical History: AML- 32 YR AGO colitis, other (Liver cirrhosis, seizure disorder , obesity) Past Surgical History Past Surgical Hx: other (surgery for polyp trachea) Social History Alcohol Use: none Smoking Status: Never smoker Drug Use: none Eyes: no complaints ENT: no complaints Respiratory: no complaints Cardiovascular: no complaints Gastrointestinal: diarrhea, nausea, pain, vomiting Genitourinary: no complaints Musculoskeletal: no complaints Skin: no complaints Neurologic: no complaints Endocrine: no complaints Lymphatic: no complaints Psychological: no complaints Immunologic: no complaints Past Medical History Medical History: colitis, other (Liver cirrhosis, seizure disorder, obesity) Past Surgical History Past Surgical Hx: other (surgery for polyp trachea) Social History Alcohol Use: none Smoking Status: Never smoker Drug Use: none Exam/Review of Systems Vital Signs Vitals Vital Signs Date Time Temp Pulse Resp B/P Pulse Ox O2 Delivery O2 Flow Rate FiO2 08/19/16 20:10 97.6 75 18 92/51 100 08/16/16 10:43 Room Air 08/16/16 04:23 2 Intake and Output 08/18/16 08/18/16 08/19/16 15:00 23:00 07:00 Intake Total 880 ml 120 ml Balance 880 ml 120 ml Exam General: Morbidly obese 56 year-old male lying in bed in no apparent distress. HEENT: Normocephalic, atraumatic. Eyes: Anicteric sclerae, conjunctivae clear. ENT: Nasal septum midline, oral mucosa moist. Neck supple, no JVD noticed. Respiratory: Bilaterally clear breath sounds. No use of accessory muscles of respiration. No adventitious breath sounds. Cardiovascular: S1, S2 heard. Regular rate and rhythm. Abdomen: Distended. Bowel sounds positive in all 4 quadrants. Left lower quadrant tenderness. Genitourinary: Deferred. Extremities: No cyanosis, no clubbing. Bilateral lower extremity 2+ pitting edema. Peripheral pulses palpable. Neurologic: Cranial nerves II through XII grossly intact. The patient is awake, alert, and oriented. Skin: Normal skin turgor. No skin rashes. Results Result Diagram: 6/30/17 0825 6/30/17 0825 Results 24 hrs Laboratory Tests Test 08/19/16 08:25 White Blood Count 2.1 #L Red Blood Count 2.79 L Hemoglobin 8.5 L Hematocrit 25.6 L Mean Corpuscular Volume 91.8 Mean Corpuscular Hemoglobin 30.5 Mean Corpuscular Hemoglobin Concent 33.2 Red Cell Distribution Width 16.7 H Platelet Count 58 L Mean Platelet Volume 9.3 Neutrophils % 50.4 Lymphocytes % 24.8 Monocytes % 14.6 H Eosinophils % 7.8 H Basophils % 0.5 Nucleated Red Blood Cells % 0.0 Neutrophils # 1.0 L Lymphocytes # 0.5 L Monocytes # 0.3 Eosinophils # 0.2 Basophils # 0.0 Nucleated Red Blood Cells # 0.0 Sodium Level 135 Potassium Level 3.4 L Chloride Level 108 Carbon Dioxide Level 20 L Anion Gap 10 Blood Urea Nitrogen 8 Creatinine 0.77 Glucose Level 70 Calcium Level 7.5 L Phosphorus Level 3.1 Magnesium Level 1.9 Total Bilirubin 0.3 Direct Bilirubin 0.00 Indirect Bilirubin 0.3 Aspartate Amino Transf (AST/SGOT) 44 Alanine Aminotransferase (ALT/SGPT) 51 Alkaline Phosphatase 255 H Ammonia 20 Total Protein 5.4 L Albumin 2.3 L Globulin 3.10 Albumin/Globulin Ratio 0.74 Medications Medications Current Medications Ondansetron HCl (Zofran Inj) 4 mg Q6H PRN IV NAUSEA AND/OR VOMITING Last administered on 08/16/16 18:08; Admin Dose 4 MG; Start 08/16/16 at 10:00 Acetaminophen (Tylenol Tab) 650 mg Q6H PRN PO PAIN LEVEL 1-3 OR FEVER Last administered on 08/17/16 22:59; Admin Dose 650 MG; Start 08/16/16 at 10:00 Acetaminophen/ Hydrocodone Bitart ([place] (5/325)) 1 tab Q6H PRN PO MODERATE PAIN LEVEL 4-6 Last administered on 08/18/16 14:25; Admin Dose 1 TAB; Start at 10:00 Morphine Sulfate (morphine) 2 mg Q4H PRN IV SEVERE PAIN LEVEL 7-10; Start 08/16 at 10:00 Pantoprazole (Protonix Tab) 40 mg DAILY@06 PO Last administered on 08/19/16 06 :15; Admin Dose 40 MG; Start 08/17/16 at 06:00 Ferrous Sulfate (Ferrous Sulfate (Ec)) 325 mg DAILY PO Last administered on 09:24; Admin Dose 325 MG; Start 08/17/16 at 09:00 Levetiracetam (Keppra) 2,000 mg Q12H PO Last administered on 08/19/16 09:25; Admin Dose 2,000 MG; Start 08/16/16 at 10:00 Propranolol HCl (Inderal) 10 mg BID PO Last administered on 08/18/16 08:58; Admin Dose 10 MG; Start 08/16/16 at 21:00 Zinc Sulfate 220 mg 220 mg DAILY PO Last administered on 08/19/16 09:24; Admin Dose 220 MG; Start 08/17/16 at 09:00 Metronidazole (Flagyl 500 Mg (Pmx)) 100 ml @ 100 mls/hr Q8 IVPB Last administered on 08/19/16 14:19; Admin Dose 100 MLS/HR; Start 08/16/16 at 14:00 Lorazepam (Ativan) 0.5 mg Q6H PRN PO ANXIETY; Start 08/16/16 at 16:30 Furosemide (Lasix) 20 mg DAILY IV Last administered on 08/18/16 09:48; Admin Dose 20 MG; Start 08/17/16 at 09:00 Vancomycin HCl 250 mg 250 mg Q6 PO Last administered on 08/19/16 18:40; Admin Dose 250 MG; Start 08/17/16 at 14:30 Levofloxacin/ Dextrose (Levaquin 750 Mg/ D5W 150 ml (Pmx)) 150 ml @ 100 mls/hr Q24H IVPB Last administered on 08/18/16 20:36; Admin Dose 100 MLS/HR; Start at 21:00 ELVA TEE MD Aug 19, 2016 20:46
[2016-08-19 21:50] LABS: PLATELET COUNT 61 10^3/UL (140-415)
[2016-08-19 21:53] LABS: RETICULOCYTE COUNT % 1.9 % (0.5-1.5)
[2016-08-19 22:07] LABS: IRON 46 ug/dl (35-150); LACTATE DEHYDROGENASE 318 IU/L (313-618); URIC ACID 4.6 mg/dl (3.1-7.9)
[2016-08-19 22:09] LABS: PROTIME 20.1 Sec (12.2-14.2); PT RATIO 1.6
[2016-08-19 22:10] LABS: PARTIAL THROMBOPLASTIN TIME 43.7 Sec (25.0-35.0)
[2016-08-19 22:12] LABS: THROMBIN TIME 17.8 SEC (13.8-19.1)
[2016-08-19 22:16] LABS: D-DIMER 3661.19 ng/ml (<460); TOTAL IRON BINDING CAPACITY 173 ug/dl (241-421)
[2016-08-19 22:57] LABS: FIBRIN SPLIT PRODUCT <10 ug/ml (<10)
[2016-08-19 23:15] LABS: FOLATE 4.7 ng/ml (2.8-20.0)
[2016-08-20] MEDS: VANCOMYCIN HCL 250 MG/5ML POSYG PO SCH ×5 (00:28→23:47)
[2016-08-20] MEDS: PANTOPRAZOLE (EC) 40 MG TAB PO SCH (05:57)
[2016-08-20] MEDS: metroNIDAZOLE 500 MG/NS (PMX) 100 ML IVPB SCH ×3 (05:58→22:42)
[2016-08-20 07:04] LABS: ABNORMAL IP MESSAGE 1; BASOPHILS % 1.2 % (0.0-2.0); EOSINOPHILS # 0.2 10^3/ul (0.0-0.5); HEMATOCRIT 26.9 % (42.0-52.0); HEMOGLOBIN 8.6 g/dl (14.0-18.0); LYMPHOCYTES # 0.6 10^3/ul (0.8-2.9); LYMPHOCYTES % 24.2 % (15.0-51.0); MEAN CORPUSCULAR HEMOGLOBIN 29.5 pg (29.0-33.0); MEAN CORPUSCULAR VOLUME 92.1 fl (82.0-101.0); MEAN PLATELET VOLUME 9.4 fl (7.4-10.4); MONOCYTE # 0.4 10^3/ul (0.3-0.9); MONOCYTES % 14.5 % (0.0-11.0); NEUTROPHIL # 1.3 10^3/ul (1.6-7.5); NEUTROPHILS % 50.8 % (39.0-77.0); PLATELET COUNT 70 10^3/UL (140-415); RED BLOOD COUNT 2.92 10^6/ul (4.70-6.10); RED CELL DISTRIBUTION WIDTH 16.5 % (11.5-14.5); WHITE BLOOD COUNT 2.6 10^3/ul (4.8-10.8)
[2016-08-20 07:34] LABS: MAGNESIUM 1.9 mg/dl (1.7-2.5); PHOSPHORUS 3.1 mg/dl (2.5-4.9)
[2016-08-20 07:38] LABS: CALCIUM 7.9 mg/dl (8.4-10.2); CREATININE 0.68 mg/dl (0.61-1.24); POTASSIUM 3.8 mmol/L (3.5-5.1)
[2016-08-20 07:40] VITALS: BP_SYST 86; BP_SYST 91; BP_DIAS 45; BP_DIAS 53; RESP 18
[2016-08-20] MEDS: ZINC SULFATE 220 MG CAP PO SCH (09:32)
[2016-08-20] MEDS: FERROUS SULFATE (EC) 325 MG TAB PO SCH (09:32)
[2016-08-20] MEDS: FUROSEMIDE 20 MG INJ IV SCH (09:34)
[2016-08-20] MEDS: PROPRANOLOL 10 MG TAB PO SCH ×2 (09:34→21:00)
[2016-08-20] MEDS: LEVETIRACETAM 500 MG TAB PO SCH ×2 (11:13→22:42)
--- NOTE | 2016-08-20 13:30 | CONS ---
Date/Time of Note Date/Time of Note DATE: 08/20/16 TIME: 13:23 Assessment/Plan Assessment/Plan Chief Complaint/Hosp Course ID PROGRESS NOTE TOTAL ABX DAY #: Levaquin, Flagyl PO, Vanco PO 24H INTERVAL SUMMARY * No fevers,still having diarrhea started on po ABX, no new concerns, no complaints, no questions GENERAL:Obese M, A/a/O, VSS, no fevers HEENT: Unremarkable NECK: Supple. CHEST: Rise symmetrical, without dyspnea on room air, no wheezing HEART: S1, S2. ABDOMEN: Soft, EXTREMITIES: Warm, moves all extremities, ambulatory, no edema ID ASSESSMENT: 56 yo Super Morbid Obese M admit with: 1. C. difficile colitis 2. Polymicrobial UTI 3. VRE stool colonization 4. Liver cirrhosis. * The patient's ammonia level is within normal limits. The patient's chest x- ray showing no evidence of any pulmonary vascular congestion. 5. Abdominal pain = colitis ? GI on the case. * Abdominal CT scan showing moderate amount of water density free intraperitoneal fluid. The CT also revealed diverticuli within the descending colon and sigmoid colon and there is stranding within the fat along the descending colon raising the suspicion of diverticulitis. CT also revealed extensive cholelithiasis with gallbladder mildly distended with no gallbladder wall thickening or bile duct dilatation. Patient being followed by gastroenterology. 6. Venous stasis w/BLEXT chronic venous stasis edema w/hyperpigmentation changes 7. Hx of Seizure disorder 8. Pancytyopenia - liver cirrhosis ? HemeOnc on the case ABX ALLERGY: PCN CURRENT ABX: Levaquin, Flagyl PO, Vanco PO ID PLAN: * Continue current ABX * Follow recs from consultants . Problems: Consultation Date/Type/Reason Admit Date/Time Aug 16, 2016 at 05:49 Initial Consult Date 08/19/16 Type of Consultation: ID Referring Provider: MALU CORONADO NP Exam/Review of Systems Vital Signs Vitals Vital Signs Date Time Temp Pulse Resp B/P Pulse Ox O2 Delivery O2 Flow Rate FiO2 08/20/16 07:40 97.5 76 18 91/53 99 08/16/16 10:43 Room Air Intake and Output 08/19/16 08/19/16 08/20/16 15:00 23:00 07:00 Intake Total 100 ml 1410 ml 600 ml Balance 100 ml 1410 ml 600 ml Results Result Diagram: 08/20/16 0550 08/20/16 0550 Results 24 hrs Laboratory Tests Test 08/19/16 21:25 08/20/16 05:50 Platelet Count 61 L 70 #L Erythrocyte Sedimentation Rate 35 H Absolute Reticulocyte Count 0.054 Percent Reticulocyte Count 1.9 H Prothrombin Time 20.1 H Prothrombin Time Ratio 1.6 INR International Normalized Ratio 1.70 Activated Partial Thromboplast Time 43.7 H Thrombin Time 17.8 Fibrinogen 270.0 Plasma Fibrin Degradation Products <10 D-Dimer 3661.19 H D-Dimer Comment Uric Acid 4.6 Iron Level 46 # Total Iron Binding Capacity 173 L Percent Iron Saturation 27 Ferritin 87.0 Lactate Dehydrogenase 318 Vitamin B12 Level > 1000 H Folate 4.7 Thyroid Stimulating Hormone (TSH) 2.350 White Blood Count 2.6 #L Red Blood Count 2.92 L Hemoglobin 8.6 L Hematocrit 26.9 L Mean Corpuscular Volume 92.1 Mean Corpuscular Hemoglobin 29.5 Mean Corpuscular Hemoglobin Concent 32.0 Red Cell Distribution Width 16.5 H Mean Platelet Volume 9.4 Neutrophils % 50.8 Lymphocytes % 24.2 Monocytes % 14.5 H Eosinophils % 7.0 Basophils % 1.2 Nucleated Red Blood Cells % 0.0 Neutrophils # 1.3 L Lymphocytes # 0.6 L Monocytes # 0.4 Eosinophils # 0.2 Basophils # 0.0 Nucleated Red Blood Cells # 0.0 Sodium Level 139 Potassium Level 3.8 Chloride Level 107 Carbon Dioxide Level 19 L Anion Gap 17 #H Blood Urea Nitrogen 7 Creatinine 0.68 Glucose Level 60 #L Calcium Level 7.9 L Phosphorus Level 3.1 Magnesium Level 1.9 Ammonia 23 Medications Medications Current Medications Ondansetron HCl (Zofran Inj) 4 mg Q6H PRN IV NAUSEA AND/OR VOMITING Last administered on 08/16/16 18:08; Admin Dose 4 MG; Start 08/16/16 at 10:00 Acetaminophen (Tylenol Tab) 650 mg Q6H PRN PO PAIN LEVEL 1-3 OR FEVER Last administered on 08/17/16 22:59; Admin Dose 650 MG; Start 08/16/16 at 10:00 Acetaminophen/ Hydrocodone Bitart ([place] (5/325)) 1 tab Q6H PRN PO MODERATE PAIN LEVEL 4-6 Last administered on 08/18/16 14:25; Admin Dose 1 TAB; Start at 10:00 Morphine Sulfate (morphine) 2 mg Q4H PRN IV SEVERE PAIN LEVEL 7-10; Start 08/16 at 10:00 Pantoprazole (Protonix Tab) 40 mg DAILY@06 PO Last administered on 08/20/16 05: 57; Admin Dose 40 MG; Start 08/17/16 at 06:00 Ferrous Sulfate (Ferrous Sulfate (Ec)) 325 mg DAILY PO Last administered on 08/20 09:32; Admin Dose 325 MG; Start 08/17/16 at 09:00 Levetiracetam (Keppra) 2,000 mg Q12H PO Last administered on 08/20/16 11:13; Admin Dose 2,000 MG; Start 08/16/16 at 10:00 Propranolol HCl (Inderal) 10 mg BID PO Last administered on 08/20/16 09:34; Admin Dose 10 MG; Start 08/16/16 at 21:00 Zinc Sulfate 220 mg 220 mg DAILY PO Last administered on 08/20/16 09:32; Admin Dose 220 MG; Start 08/17/16 at 09:00 Metronidazole (Flagyl 500 Mg (Pmx)) 100 ml @ 100 mls/hr Q8 IVPB Last administered on 08/20/16 05:58; Admin Dose 100 MLS/HR; Start 08/16/16 at 14:00 Lorazepam (Ativan) 0.5 mg Q6H PRN PO ANXIETY; Start 08/16/16 at 16:30 Furosemide (Lasix) 20 mg DAILY IV Last administered on 08/20/16 09:34; Admin Dose 20 MG; Start 08/17/16 at 09:00 Vancomycin HCl 250 mg 250 mg Q6 PO Last administered on 08/20/16 12:34; Admin Dose 250 MG; Start 08/17/16 at 14:30 Levofloxacin/ Dextrose (Levaquin 750 Mg/ D5W 150 ml (Pmx)) 150 ml @ 100 mls/hr Q24H IVPB Last administered on 08/19/16 20:41; Admin Dose 100 MLS/HR; Start at 21:00 CHARLOTTE NANCE NP Aug 20, 2016 13:30
--- NOTE | 2016-08-20 14:15 | PN ---
Date/Time of Note Date/Time of Note DATE: 08/20/16 TIME: 14:14 Assessment/Plan VTE Prophylaxis VTE Prophylaxis Intervention: SCD's Lines/Catheters IV [facility] Urinary Cath still in place: No Assessment/Plan Chief Complaint/Hosp Course 1. Sepsis secondary to underlying urinary tract infection and C. difficile colitis. Continue antimicrobials. The patient has no evidence of any septic shock. 2. Liver cirrhosis. The patient's ammonia level is within normal limits. The patient will be gently diuresed. The patient's chest x-ray showing no evidence of any pulmonary vascular congestion. 3. Abdominal pain. Abdominal CT scan showing moderate amount of water density free intraperitoneal fluid. The CT also revealed diverticuli within the descending colon and sigmoid colon and there is stranding within the fat along the descending colon raising the suspicion of diverticulitis. CT also revealed extensive cholelithiasis with gallbladder mildly distended with no gallbladder wall thickening or bile duct dilatation. Patient being followed by gastroenterology. 4. Seizure disorder. The patient's antiseizure medications will be continued. 5. Normocytic normochromic anemia. Most probably anemia of chronic disease. Iron panel showing iron deficiency. Patient already on iron supplements. 6. Thrombocytopenia. Most probably secondary to underlying liver cirrhosis. Will monitor the H&H closely. Will avoid any anticoagulants. 7. C. difficile colitis. Continue antimicrobials. Enteric precautions. 8. Urinary tract infection. Continue antibiotics. Infectious diseases on the case. 9. VRE colonization of the stool. 10. Remote history of leukemia. Being followed by hematology/oncology. 11. Fluids, electrolytes, and nutrition. The patient was started on clear liquids as per gastroenterology. 12. DVT prophylaxis. Bilateral sequential compression devices. 13. Gastrointestinal prophylaxis. Proton pump inhibitors. 14. Plan. Continue antimicrobials. Advancement of diet as per gastroenterology. Case discussed with Dr. Padlila. Problems: Subjective 24 Hr Interval Summary Free Text/Dictation The patient remains afebrile. Vital signs stable. Exam/Review of Systems Vital Signs Vitals Vital Signs Date Time Temp Pulse Resp B/P Pulse Ox O2 Delivery O2 Flow Rate FiO2 08/20/16 07:40 97.5 76 18 91/53 99 08/16/16 10:43 Room Air Intake and Output 08/19/16 08/19/16 08/20/16 15:00 23:00 07:00 Intake Total 100 ml 1410 ml 600 ml Balance 100 ml 1410 ml 600 ml Exam General: Morbidly obese 56 year-old male lying in bed in no apparent distress. HEENT: Normocephalic, atraumatic. Eyes: Anicteric sclerae, conjunctivae clear. ENT: Nasal septum midline, oral mucosa moist. Neck supple, no JVD noticed. Respiratory: Bilaterally clear breath sounds. No use of accessory muscles of respiration. No adventitious breath sounds. Cardiovascular: S1, S2 heard. Regular rate and rhythm. Abdomen: Distended. Bowel sounds positive in all 4 quadrants. Left lower quadrant tenderness. Genitourinary: Deferred. Extremities: No cyanosis, no clubbing. Bilateral lower extremity 2+ pitting edema. Peripheral pulses palpable. Neurologic: Cranial nerves II through XII grossly intact. The patient is awake, alert, and oriented. Skin: Normal skin turgor. No skin rashes. Results Result Diagram: 08/20/16 0550 08/20/16 0550 Results 24 hrs Laboratory Tests Test 08/19/16 21:25 08/20/16 05:50 Platelet Count 61 L 70 #L Erythrocyte Sedimentation Rate 35 H Absolute Reticulocyte Count 0.054 Percent Reticulocyte Count 1.9 H Prothrombin Time 20.1 H Prothrombin Time Ratio 1.6 INR International Normalized Ratio 1.70 Activated Partial Thromboplast Time 43.7 H Thrombin Time 17.8 Fibrinogen 270.0 Plasma Fibrin Degradation Products <10 D-Dimer 3661.19 H D-Dimer Comment Uric Acid 4.6 Iron Level 46 # Total Iron Binding Capacity 173 L Percent Iron Saturation 27 Ferritin 87.0 Lactate Dehydrogenase 318 Vitamin B12 Level > 1000 H Folate 4.7 Thyroid Stimulating Hormone (TSH) 2.350 White Blood Count 2.6 #L Red Blood Count 2.92 L Hemoglobin 8.6 L Hematocrit 26.9 L Mean Corpuscular Volume 92.1 Mean Corpuscular Hemoglobin 29.5 Mean Corpuscular Hemoglobin Concent 32.0 Red Cell Distribution Width 16.5 H Mean Platelet Volume 9.4 Neutrophils % 50.8 Lymphocytes % 24.2 Monocytes % 14.5 H Eosinophils % 7.0 Basophils % 1.2 Nucleated Red Blood Cells % 0.0 Neutrophils # 1.3 L Lymphocytes # 0.6 L Monocytes # 0.4 Eosinophils # 0.2 Basophils # 0.0 Nucleated Red Blood Cells # 0.0 Sodium Level 139 Potassium Level 3.8 Chloride Level 107 Carbon Dioxide Level 19 L Anion Gap 17 #H Blood Urea Nitrogen 7 Creatinine 0.68 Glucose Level 60 #L Calcium Level 7.9 L Phosphorus Level 3.1 Magnesium Level 1.9 Ammonia 23 Medications Medications Current Medications Ondansetron HCl (Zofran Inj) 4 mg Q6H PRN IV NAUSEA AND/OR VOMITING Last administered on 08/16/16 18:08; Admin Dose 4 MG; Start 08/16/16 at 10:00 Acetaminophen (Tylenol Tab) 650 mg Q6H PRN PO PAIN LEVEL 1-3 OR FEVER Last administered on 08/17/16 22:59; Admin Dose 650 MG; Start 08/16/16 at 10:00 Acetaminophen/ Hydrocodone Bitart ([place] (5/325)) 1 tab Q6H PRN PO MODERATE PAIN LEVEL 4-6 Last administered on 08/18/16 14:25; Admin Dose 1 TAB; Start at 10:00 Morphine Sulfate (morphine) 2 mg Q4H PRN IV SEVERE PAIN LEVEL 7-10; Start 08/16 at 10:00 Pantoprazole (Protonix Tab) 40 mg DAILY@06 PO Last administered on 08/20/16 05: 57; Admin Dose 40 MG; Start 08/17/16 at 06:00 Ferrous Sulfate (Ferrous Sulfate (Ec)) 325 mg DAILY PO Last administered on 08/20 09:32; Admin Dose 325 MG; Start 08/17/16 at 09:00 Levetiracetam (Keppra) 2,000 mg Q12H PO Last administered on 08/20/16 11:13; Admin Dose 2,000 MG; Start 08/16/16 at 10:00 Propranolol HCl (Inderal) 10 mg BID PO Last administered on 08/20/16 09:34; Admin Dose 10 MG; Start 08/16/16 at 21:00 Zinc Sulfate 220 mg 220 mg DAILY PO Last administered on 08/20/16 09:32; Admin Dose 220 MG; Start 08/17/16 at 09:00 Metronidazole (Flagyl 500 Mg (Pmx)) 100 ml @ 100 mls/hr Q8 IVPB Last administered on 08/20/16 05:58; Admin Dose 100 MLS/HR; Start 08/16/16 at 14:00 Lorazepam (Ativan) 0.5 mg Q6H PRN PO ANXIETY; Start 08/16/16 at 16:30 Furosemide (Lasix) 20 mg DAILY IV Last administered on 08/20/16 09:34; Admin Dose 20 MG; Start 08/17/16 at 09:00 Vancomycin HCl 250 mg 250 mg Q6 PO Last administered on 08/20/16 12:34; Admin Dose 250 MG; Start 08/17/16 at 14:30 Levofloxacin/ Dextrose (Levaquin 750 Mg/ D5W 150 ml (Pmx)) 150 ml @ 100 mls/hr Q24H IVPB Last administered on 08/19/16 20:41; Admin Dose 100 MLS/HR; Start at 21:00 MALU CORONADO NP Aug 20, 2016 14:14
--- NOTE | 2016-08-20 17:13 | CONS ---
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 Most probably anemia of chronic disease. Iron panel showing iron deficiency. Patient already on iron supplements. Thrombocytopenia. ? secondary to underlying liver cirrhosis. ? 2 TO SEPSIS DIC- NEG AVOID MYELOSUPPRESSIVE MEDS Will avoid any anticoagulants. Sepsis secondary to underlying urinary tract infection and C. difficile colitis. Continue antimicrobials. The patient has no evidence of any septic shock. Liver cirrhosis. The patient's ammonia level is within normal limits. The patient will be gently diuresed. The patient's chest x-ray showing no evidence of any pulmonary vascular congestion. Abdominal pain. Abdominal CT scan showing moderate amount of water density free intraperitoneal fluid. The CT also revealed diverticuli within the descending colon and sigmoid colon and there is stranding within the fat along the descending colon raising the suspicion of diverticulitis. CT also revealed extensive cholelithiasis with gallbladder mildly distended with no gallbladder wall thickening or bile duct dilatation. Patient being followed by gastroenterology. Seizure disorder. The patient's antiseizure medications will be continued. C. difficile colitis. Continue antimicrobials. Enteric precautions. Urinary tract infection. Continue antibiotics. Infectious diseases on the case. Fluids, electrolytes, and nutrition. The patient was started on clear liquids as per gastroenterology. DVT prophylaxis. Bilateral sequential compression devices. Gastrointestinal prophylaxis. Proton pump inhibitors. Problems: Consultation Date/Type/Reason Admit Date/Time Aug 16, 2016 at 05:49 Initial Consult Date 08/19/16 [facility] Referring Provider: MALU CORONADO NP 24 HR Interval Summary Free Text/Dictation ALL NOTED NO NEW NEW EVENTS COUNT STABLE W-UP IN PROGRESS Exam/Review of Systems Vital Signs Vitals Vital Signs Date Time Temp Pulse Resp B/P Pulse Ox O2 Delivery O2 Flow Rate FiO2 08/20/16 07:40 97.5 76 18 91/53 99 08/16/16 10:43 Room Air Intake and Output 08/19/16 08/19/16 08/20/16 15:00 23:00 07:00 Intake Total 100 ml 1510 ml 600 ml Balance 100 ml 1510 ml 600 ml Exam General: Morbidly obese 56 year-old male lying in bed in no apparent distress. HEENT: Normocephalic, atraumatic. Eyes: Anicteric sclerae, conjunctivae clear. ENT: Nasal septum midline, oral mucosa moist. Neck supple, no JVD noticed. Respiratory: Bilaterally clear breath sounds. No use of accessory muscles of respiration. No adventitious breath sounds. Cardiovascular: S1, S2 heard. Regular rate and rhythm. Abdomen: Distended. Bowel sounds positive in all 4 quadrants. Left lower quadrant tenderness. Genitourinary: Deferred. Extremities: No cyanosis, no clubbing. Bilateral lower extremity 2+ pitting edema. Peripheral pulses palpable. Neurologic: Cranial nerves II through XII grossly intact. The patient is awake, alert, and oriented. Skin: Normal skin turgor. No skin rashes. Results Result Diagram: 08/20/16 0550 08/20/16 0550 Results 24 hrs Laboratory Tests Test 08/19/16 21:25 08/20/16 05:50 08/20/16 12:00 Platelet Count 61 L 70 #L Erythrocyte Sedimentation Rate 35 H Absolute Reticulocyte Count 0.054 Percent Reticulocyte Count 1.9 H Prothrombin Time 20.1 H Prothrombin Time Ratio 1.6 INR International Normalized Ratio 1.70 Activated Partial Thromboplast Time 43.7 H Thrombin Time 17.8 Fibrinogen 270.0 Plasma Fibrin Degradation Products <10 D-Dimer 3661.19 H D-Dimer Comment Uric Acid 4.6 Iron Level 46 # Total Iron Binding Capacity 173 L Percent Iron Saturation 27 Ferritin 87.0 Lactate Dehydrogenase 318 Vitamin B12 Level > 1000 H Folate 4.7 Thyroid Stimulating Hormone (TSH) 2.350 White Blood Count 2.6 #L Red Blood Count 2.92 L Hemoglobin 8.6 L Hematocrit 26.9 L Mean Corpuscular Volume 92.1 Mean Corpuscular Hemoglobin 29.5 Mean Corpuscular Hemoglobin Concent 32.0 Red Cell Distribution Width 16.5 H Mean Platelet Volume 9.4 Neutrophils % 50.8 Lymphocytes % 24.2 Monocytes % 14.5 H Eosinophils % 7.0 Basophils % 1.2 Nucleated Red Blood Cells % 0.0 Neutrophils # 1.3 L Lymphocytes # 0.6 L Monocytes # 0.4 Eosinophils # 0.2 Basophils # 0.0 Nucleated Red Blood Cells # 0.0 Sodium Level 139 Potassium Level 3.8 Chloride Level 107 Carbon Dioxide Level 19 L Anion Gap 17 #H Blood Urea Nitrogen 7 Creatinine 0.68 Glucose Level 60 #L Calcium Level 7.9 L Phosphorus Level 3.1 Magnesium Level 1.9 Ammonia 23 Stool Occult Blood NEGATIVE Medications Medications Current Medications Ondansetron HCl (Zofran Inj) 4 mg Q6H PRN IV NAUSEA AND/OR VOMITING Last administered on 08/16/16 18:08; Admin Dose 4 MG; Start 08/16/16 at 10:00 Acetaminophen (Tylenol Tab) 650 mg Q6H PRN PO PAIN LEVEL 1-3 OR FEVER Last administered on 08/17/16 22:59; Admin Dose 650 MG; Start 08/16/16 at 10:00 Acetaminophen/ Hydrocodone Bitart ([place] (5/325)) 1 tab Q6H PRN PO MODERATE PAIN LEVEL 4-6 Last administered on 08/18/16 14:25; Admin Dose 1 TAB; Start at 10:00 Morphine Sulfate (morphine) 2 mg Q4H PRN IV SEVERE PAIN LEVEL 7-10; Start 08/16 at 10:00 Pantoprazole (Protonix Tab) 40 mg DAILY@06 PO Last administered on 08/20/16 05: 57; Admin Dose 40 MG; Start 08/17/16 at 06:00 Ferrous Sulfate (Ferrous Sulfate (Ec)) 325 mg DAILY PO Last administered on 08/20 09:32; Admin Dose 325 MG; Start 08/17/16 at 09:00 Levetiracetam (Keppra) 2,000 mg Q12H PO Last administered on 08/20/16 11:13; Admin Dose 2,000 MG; Start 08/16/16 at 10:00 Propranolol HCl (Inderal) 10 mg BID PO Last administered on 08/20/16 09:34; Admin Dose 10 MG; Start 08/16/16 at 21:00 Zinc Sulfate 220 mg 220 mg DAILY PO Last administered on 08/20/16 09:32; Admin Dose 220 MG; Start 08/17/16 at 09:00 Metronidazole (Flagyl 500 Mg (Pmx)) 100 ml @ 100 mls/hr Q8 IVPB Last administered on 08/20/16 14:14; Admin Dose 100 MLS/HR; Start 08/16/16 at 14:00 Lorazepam (Ativan) 0.5 mg Q6H PRN PO ANXIETY; Start 08/16/16 at 16:30 Furosemide (Lasix) 20 mg DAILY IV Last administered on 08/20/16 09:34; Admin Dose 20 MG; Start 08/17/16 at 09:00 Vancomycin HCl 250 mg 250 mg Q6 PO Last administered on 08/20/16 12:34; Admin Dose 250 MG; Start 08/17/16 at 14:30 Levofloxacin/ Dextrose (Levaquin 750 Mg/ D5W 150 ml (Pmx)) 150 ml @ 100 mls/hr Q24H IVPB Last administered on 08/19/16 20:41; Admin Dose 100 MLS/HR; Start at 21:00 ELVA TEE MD Aug 20, 2016 17:13
[2016-08-20 18:33] VITALS: BP 103/56; PULSE 86; RESP 20
[2016-08-20 19:30] VITALS: BP 94/44; RESP 19
[2016-08-20] MEDS: LEVOFLOXACIN 750MG/D5W (PMX) 150 ML IVPB SCH (21:12)
[2016-08-21 01:48] LABS: PROTEIN, TOTAL 5.2 g/dL (6.1-8.1)
[2016-08-21 06:03] LABS: ABNORMAL IP MESSAGE 1; BASOPHILS % 0.3 % (0.0-2.0); EOSINOPHILS # 0.1 10^3/ul (0.0-0.5); EOSINOPHILS % 4.8 % (0.0-7.0); HEMATOCRIT 26.9 % (42.0-52.0); HEMOGLOBIN 8.8 g/dl (14.0-18.0); LYMPHOCYTES # 0.7 10^3/ul (0.8-2.9); LYMPHOCYTES % 24.8 % (15.0-51.0); MEAN CORPUSCULAR HEMOGLOBIN 29.7 pg (29.0-33.0); MEAN CORPUSCULAR HGB CONC 32.7 g/dl (32.0-37.0); MEAN CORPUSCULAR VOLUME 90.9 fl (82.0-101.0); MEAN PLATELET VOLUME 8.6 fl (7.4-10.4); MONOCYTE # 0.4 10^3/ul (0.3-0.9); MONOCYTES % 14.5 % (0.0-11.0); NEUTROPHIL # 1.5 10^3/ul (1.6-7.5); NEUTROPHILS % 52.2 % (39.0-77.0); PLATELET COUNT 61 10^3/UL (140-415); RED BLOOD COUNT 2.96 10^6/ul (4.70-6.10); RED CELL DISTRIBUTION WIDTH 16.4 % (11.5-14.5); WHITE BLOOD COUNT 2.9 10^3/ul (4.8-10.8)
[2016-08-21] MEDS: metroNIDAZOLE 500 MG/NS (PMX) 100 ML IVPB SCH ×3 (06:24→23:09)
[2016-08-21] MEDS: PANTOPRAZOLE (EC) 40 MG TAB PO SCH (06:26)
[2016-08-21] MEDS: VANCOMYCIN HCL 250 MG/5ML POSYG PO SCH ×3 (06:26→18:39)
[2016-08-21 06:32] LABS: MAGNESIUM 1.7 mg/dl (1.7-2.5); PHOSPHORUS 3.3 mg/dl (2.5-4.9)
[2016-08-21 06:55] LABS: ALBUMIN 2.2 g/dl (3.3-4.9); ALBUMIN/GLOBULIN RATIO 0.68; BILIRUBIN,INDIRECT 0.2 mg/dl (0-1.1); BILIRUBIN,TOTAL 0.2 mg/dl (0.2-1.3); CALCIUM 8.1 mg/dl (8.4-10.2); CREATININE 0.72 mg/dl (0.61-1.24); POTASSIUM 3.9 mmol/L (3.5-5.1); TOTAL PROTEIN 5.4 g/dl (6.1-8.1)
[2016-08-21 07:09] LABS: ADD SCAN DIFF NO
[2016-08-21 07:40] VITALS: BP 108/62; RESP 20
[2016-08-21] MEDS: FUROSEMIDE 20 MG INJ IV SCH (09:00)
[2016-08-21] MEDS: ZINC SULFATE 220 MG CAP PO SCH (09:29)
[2016-08-21] MEDS: FERROUS SULFATE (EC) 325 MG TAB PO SCH (09:29)
[2016-08-21] MEDS: PROPRANOLOL 10 MG TAB PO SCH ×2 (09:29→20:37)
[2016-08-21] MEDS: LEVETIRACETAM 500 MG TAB PO SCH ×2 (09:29→23:09)
[2016-08-21 09:30] VITALS: BP 97/53; PULSE 76
--- NOTE | 2016-08-21 11:23 | PN ---
Date/Time of Note Date/Time of Note DATE: 08/21/16 TIME: 11:21 Assessment/Plan VTE Prophylaxis VTE Prophylaxis Intervention: SCD's Lines/Catheters IV Catheter Type (from [facility]): [place] [facility] Urinary Cath still in place: No Assessment/Plan Chief Complaint/Hosp Course 1. Sepsis secondary to underlying urinary tract infection and C. difficile colitis. Continue antimicrobials. The patient has no evidence of any septic shock. 2. Liver cirrhosis. The patient's ammonia level is within normal limits. The patient will be gently diuresed. The patient's chest x-ray showing no evidence of any pulmonary vascular congestion. 3. Abdominal pain. Abdominal CT scan showing moderate amount of water density free intraperitoneal fluid. The CT also revealed diverticuli within the descending colon and sigmoid colon and there is stranding within the fat along the descending colon raising the suspicion of diverticulitis. CT also revealed extensive cholelithiasis with gallbladder mildly distended with no gallbladder wall thickening or bile duct dilatation. Patient being followed by gastroenterology. 4. Seizure disorder. The patient's antiseizure medications will be continued. 5. Normocytic normochromic anemia. Most probably anemia of chronic disease. Iron panel showing iron deficiency. Patient already on iron supplements. 6. Thrombocytopenia. Most probably secondary to underlying liver cirrhosis. Will monitor the H&H closely. Will avoid any anticoagulants. 7. C. difficile colitis. Continue antimicrobials. Enteric precautions. 8. Urinary tract infection. Continue antibiotics. Infectious diseases on the case. 9. VRE colonization of the stool. 10. Remote history of leukemia. Being followed by hematology/oncology. 11. Fluids, electrolytes, and nutrition. The patient was started on clear liquids as per gastroenterology. 12. DVT prophylaxis. Bilateral sequential compression devices. 13. Gastrointestinal prophylaxis. Proton pump inhibitors. 14. Plan. Continue antimicrobials. Advancement of diet as per gastroenterology. Case discussed with Dr. Padilla. Problems: Subjective 24 Hr Interval Summary Free Text/Dictation Patient remains afebrile. Complains of diarrhea and gas pain. Exam/Review of Systems Vital Signs Vitals Vital Signs Date Time Temp Pulse Resp B/P Pulse Ox O2 Delivery O2 Flow Rate FiO2 08/21/16 09:30 76 97/53 08/21/16 07:40 97.7 20 97 08/20/16 18:33 Room Air Intake and Output 08/20/16 08/20/16 08/21/16 15:00 23:00 07:00 Intake Total 1210 ml 580 ml Balance 1210 ml 580 ml Exam General: Morbidly obese 56 year-old male lying in bed in no apparent distress. HEENT: Normocephalic, atraumatic. Eyes: Anicteric sclerae, conjunctivae clear. ENT: Nasal septum midline, oral mucosa moist. Neck supple, no JVD noticed. Respiratory: Bilaterally clear breath sounds. No use of accessory muscles of respiration. No adventitious breath sounds. Cardiovascular: S1, S2 heard. Regular rate and rhythm. Abdomen: Distended. Bowel sounds positive in all 4 quadrants. Left lower quadrant tenderness. Genitourinary: Deferred. Extremities: No cyanosis, no clubbing. Bilateral lower extremity 2+ pitting edema. Peripheral pulses palpable. Neurologic: Cranial nerves II through XII grossly intact. The patient is awake, alert, and oriented. Skin: Normal skin turgor. No skin rashes. Results Result Diagram: 08/21/16 0505 08/21/16 0505 Results 24 hrs Laboratory Tests Test 08/20/16 12:00 08/21/16 05:05 Stool Occult Blood NEGATIVE White Blood Count 2.9 L Red Blood Count 2.96 L Hemoglobin 8.8 L Hematocrit 26.9 L Mean Corpuscular Volume 90.9 Mean Corpuscular Hemoglobin 29.7 Mean Corpuscular Hemoglobin Concent 32.7 Red Cell Distribution Width 16.4 H Platelet Count 61 L Mean Platelet Volume 8.6 Neutrophils % 52.2 Lymphocytes % 24.8 Monocytes % 14.5 H Eosinophils % 4.8 Basophils % 0.3 Nucleated Red Blood Cells % 0.0 Neutrophils # 1.5 L Lymphocytes # 0.7 L Monocytes # 0.4 Eosinophils # 0.1 Basophils # 0.0 Nucleated Red Blood Cells # 0.0 Sodium Level 141 Potassium Level 3.9 Chloride Level 110 Carbon Dioxide Level 19 L Anion Gap 16 Blood Urea Nitrogen 7 Creatinine 0.72 Glucose Level 65 L Calcium Level 8.1 L Phosphorus Level 3.3 Magnesium Level 1.7 Total Bilirubin 0.2 Direct Bilirubin 0.00 Indirect Bilirubin 0.2 Aspartate Amino Transf (AST/SGOT) 52 H Alanine Aminotransferase (ALT/SGPT) 45 Alkaline Phosphatase 245 H Ammonia 10 Total Protein 5.4 L Albumin 2.2 L Globulin 3.20 Albumin/Globulin Ratio 0.68 Medications Medications Current Medications Ondansetron HCl (Zofran Inj) 4 mg Q6H PRN IV NAUSEA AND/OR VOMITING Last administered on 08/16/16 18:08; Admin Dose 4 MG; Start 08/16/16 at 10:00 Acetaminophen (Tylenol Tab) 650 mg Q6H PRN PO PAIN LEVEL 1-3 OR FEVER Last administered on 08/17/16 22:59; Admin Dose 650 MG; Start 08/16/16 at 10:00 Acetaminophen/ Hydrocodone Bitart ([place] (5/325)) 1 tab Q6H PRN PO MODERATE PAIN LEVEL 4-6 Last administered on 08/18/16 14:25; Admin Dose 1 TAB; Start at 10:00 Morphine Sulfate (morphine) 2 mg Q4H PRN IV SEVERE PAIN LEVEL 7-10; Start 08/16 at 10:00 Pantoprazole (Protonix Tab) 40 mg DAILY@06 PO Last administered on 08/21/16 06: 26; Admin Dose 40 MG; Start 08/17/16 at 06:00 Ferrous Sulfate (Ferrous Sulfate (Ec)) 325 mg DAILY PO Last administered on 08/21 09:29; Admin Dose 325 MG; Start 08/17/16 at 09:00 Levetiracetam (Keppra) 2,000 mg Q12H PO Last administered on 08/21/16 09:29; Admin Dose 2,000 MG; Start 08/16/16 at 10:00 Propranolol HCl (Inderal) 10 mg BID PO Last administered on 08/21/16 09:29; Admin Dose 10 MG; Start 08/16/16 at 21:00 Zinc Sulfate 220 mg 220 mg DAILY PO Last administered on 08/21/16 09:29; Admin Dose 220 MG; Start 08/17/16 at 09:00 Metronidazole (Flagyl 500 Mg (Pmx)) 100 ml @ 100 mls/hr Q8 IVPB Last administered on 08/21/16 06:24; Admin Dose 100 MLS/HR; Start 08/16/16 at 14:00 Lorazepam (Ativan) 0.5 mg Q6H PRN PO ANXIETY; Start 08/16/16 at 16:30 Furosemide (Lasix) 20 mg DAILY IV Last administered on 08/20/16 09:34; Admin Dose 20 MG; Start 08/17/16 at 09:00 Vancomycin HCl 250 mg 250 mg Q6 PO Last administered on 08/21/16 06:26; Admin Dose 250 MG; Start 08/17/16 at 14:30 Levofloxacin/ Dextrose (Levaquin 750 Mg/ D5W 150 ml (Pmx)) 150 ml @ 100 mls/hr Q24H IVPB Last administered on 08/20/16 21:12; Admin Dose 100 MLS/HR; Start at 21:00 MALU CORONADO NP Aug 21, 2016 11:23
--- NOTE | 2016-08-21 14:21 | CONS ---
Date/Time of Note Date/Time of Note DATE: 08/21/16 TIME: 14:17 Assessment/Plan Assessment/Plan Chief Complaint/Hosp Course Assessment/Plan Assessment/Plan Chief Complaint/Hosp Course ID PROGRESS NOTE TOTAL ABX DAY #: Levaquin, Flagyl PO, Vanco PO 24H INTERVAL SUMMARY No fevers. Denies Abdominal Pain. Complains of Nausea this morning. GENERAL:Obese M, A/a/O, VSS, no fevers HEENT: Unremarkable NECK: Supple. CHEST: Rise symmetrical, without dyspnea on room air, no wheezing HEART: S1, S2. ABDOMEN: Soft, EXTREMITIES: Warm, moves all extremities, ambulatory, no edema ID ASSESSMENT: 56 yo Super Morbid Obese M admit with: 1. C. difficile colitis 2. Polymicrobial UTI 3. VRE stool colonization 4. Liver cirrhosis. The patient's ammonia level is within normal limits. The patient's chest x- ray showing no evidence of any pulmonary vascular congestion. 5. Abdominal pain = colitis ? GI on the case. Abdominal CT scan showing moderate amount of water density free intraperitoneal fluid. The CT also revealed diverticuli within the descending colon and sigmoid colon and there is stranding within the fat along the descending colon raising the suspicion of diverticulitis. CT also revealed extensive cholelithiasis with gallbladder mildly distended with no gallbladder wall thickening or bile duct dilatation. Patient being followed by gastroenterology. 6. Venous stasis w/BLEXT chronic venous stasis edema w/hyperpigmentation changes 7. Hx of Seizure disorder 8. Pancytyopenia - liver cirrhosis ? HemeOnc on the case ABX ALLERGY: PCN CURRENT ABX: Levaquin, Flagyl PO, Vanco PO ID PLAN: 1. Continue current Antibiotics. 2. Follow recommendations from consultants. 3. Monitor Labs. Problems: Consultation Date/Type/Reason Admit Date/Time Aug 16, 2016 at 05:49 Initial Consult Date 08/19/16 Type of Consultation: id Referring Provider: MALU CORONADO NP Exam/Review of Systems Vital Signs Vitals Vital Signs Date Time Temp Pulse Resp B/P Pulse Ox O2 Delivery O2 Flow Rate FiO2 08/21/16 09:30 76 97/53 08/21/16 07:40 97.7 20 97 08/20/16 18:33 Room Air Intake and Output 08/20/16 08/20/16 08/21/16 15:00 23:00 07:00 Intake Total 1210 ml 580 ml Balance 1210 ml 580 ml Results Result Diagram: 08/21/16 0505 08/21/16 0505 Results 24 hrs Laboratory Tests Test 08/21/16 05:05 White Blood Count 2.9 L Red Blood Count 2.96 L Hemoglobin 8.8 L Hematocrit 26.9 L Mean Corpuscular Volume 90.9 Mean Corpuscular Hemoglobin 29.7 Mean Corpuscular Hemoglobin Concent 32.7 Red Cell Distribution Width 16.4 H Platelet Count 61 L Mean Platelet Volume 8.6 Neutrophils % 52.2 Lymphocytes % 24.8 Monocytes % 14.5 H Eosinophils % 4.8 Basophils % 0.3 Nucleated Red Blood Cells % 0.0 Neutrophils # 1.5 L Lymphocytes # 0.7 L Monocytes # 0.4 Eosinophils # 0.1 Basophils # 0.0 Nucleated Red Blood Cells # 0.0 Sodium Level 141 Potassium Level 3.9 Chloride Level 110 Carbon Dioxide Level 19 L Anion Gap 16 Blood Urea Nitrogen 7 Creatinine 0.72 Glucose Level 65 L Calcium Level 8.1 L Phosphorus Level 3.3 Magnesium Level 1.7 Total Bilirubin 0.2 Direct Bilirubin 0.00 Indirect Bilirubin 0.2 Aspartate Amino Transf (AST/SGOT) 52 H Alanine Aminotransferase (ALT/SGPT) 45 Alkaline Phosphatase 245 H Ammonia 10 Total Protein 5.4 L Albumin 2.2 L Globulin 3.20 Albumin/Globulin Ratio 0.68 Medications Medications Current Medications Ondansetron HCl (Zofran Inj) 4 mg Q6H PRN IV NAUSEA AND/OR VOMITING Last administered on 08/16/16 18:08; Admin Dose 4 MG; Start 08/16/16 at 10:00 Acetaminophen (Tylenol Tab) 650 mg Q6H PRN PO PAIN LEVEL 1-3 OR FEVER Last administered on 08/17/16 22:59; Admin Dose 650 MG; Start 08/16/16 at 10:00 Acetaminophen/ Hydrocodone Bitart ([place] (5/325)) 1 tab Q6H PRN PO MODERATE PAIN LEVEL 4-6 Last administered on 08/18/16 14:25; Admin Dose 1 TAB; Start at 10:00 Morphine Sulfate (morphine) 2 mg Q4H PRN IV SEVERE PAIN LEVEL 7-10; Start 08/16 at 10:00 Pantoprazole (Protonix Tab) 40 mg DAILY@06 PO Last administered on 08/21/16 06: 26; Admin Dose 40 MG; Start 08/17/16 at 06:00 Ferrous Sulfate (Ferrous Sulfate (Ec)) 325 mg DAILY PO Last administered on 08/21 09:29; Admin Dose 325 MG; Start 08/17/16 at 09:00 Levetiracetam (Keppra) 2,000 mg Q12H PO Last administered on 08/21/16 09:29; Admin Dose 2,000 MG; Start 08/16/16 at 10:00 Propranolol HCl (Inderal) 10 mg BID PO Last administered on 08/21/16 09:29; Admin Dose 10 MG; Start 08/16/16 at 21:00 Zinc Sulfate 220 mg 220 mg DAILY PO Last administered on 08/21/16 09:29; Admin Dose 220 MG; Start 08/17/16 at 09:00 Metronidazole (Flagyl 500 Mg (Pmx)) 100 ml @ 100 mls/hr Q8 IVPB Last administered on 08/21/16 14:09; Admin Dose 100 MLS/HR; Start 08/16/16 at 14:00 Lorazepam (Ativan) 0.5 mg Q6H PRN PO ANXIETY; Start 08/16/16 at 16:30 Furosemide (Lasix) 20 mg DAILY IV Last administered on 08/20/16 09:34; Admin Dose 20 MG; Start 08/17/16 at 09:00 Vancomycin HCl 250 mg 250 mg Q6 PO Last administered on 08/21/16 12:35; Admin Dose 250 MG; Start 08/17/16 at 14:30 Levofloxacin/ Dextrose (Levaquin 750 Mg/ D5W 150 ml (Pmx)) 150 ml @ 100 mls/hr Q24H IVPB Last administered on 08/20/16 21:12; Admin Dose 100 MLS/HR; Start at 21:00 GISELA PAREDES NP Aug 21, 2016 14:20
[2016-08-21 20:00] VITALS: BP 91/44; RESP 20
[2016-08-21] MEDS: LEVOFLOXACIN 750MG/D5W (PMX) 150 ML IVPB SCH (20:37)
--- NOTE | 2016-08-22 00:10 | CONS ---
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 Most probably anemia of chronic disease. Iron panel showing iron deficiency. Patient already on iron supplements. Thrombocytopenia. ? secondary to underlying liver cirrhosis. ? 2 TO SEPSIS DIC- NEG AVOID MYELOSUPPRESSIVE MEDS Will avoid any anticoagulants. Sepsis secondary to underlying urinary tract infection and C. difficile colitis. Continue antimicrobials. The patient has no evidence of any septic shock. Liver cirrhosis. The patient's ammonia level is within normal limits. The patient will be gently diuresed. The patient's chest x-ray showing no evidence of any pulmonary vascular congestion. MILD SPLENOMEGALY- MOST LIKELY 2 TO LIVER CIRRHOSIS Abdominal pain. Abdominal CT scan showing moderate amount of water density free intraperitoneal fluid. The CT also revealed diverticuli within the descending colon and sigmoid colon and there is stranding within the fat along the descending colon raising the suspicion of diverticulitis. CT also revealed extensive cholelithiasis with gallbladder mildly distended with no gallbladder wall thickening or bile duct dilatation. Patient being followed by gastroenterology. Seizure disorder. The patient's antiseizure medications will be continued. C. difficile colitis. Continue antimicrobials. Enteric precautions. Urinary tract infection. Continue antibiotics. Infectious diseases on the case. Fluids, electrolytes, and nutrition. The patient was started on clear liquids as per gastroenterology. DVT prophylaxis. Bilateral sequential compression devices. Gastrointestinal prophylaxis. Proton pump inhibitors. Problems: Consultation Date/Type/Reason Admit Date/Time Aug 16, 2016 at 05:49 Initial Consult Date 08/19/16 Type of Consultation: [facility] Referring Provider: MALU CORONADO NP 24 HR Interval Summary Free Text/Dictation ALL NOTED Exam/Review of Systems Vital Signs Vitals Vital Signs Date Time Temp Pulse Resp B/P Pulse Ox O2 Delivery O2 Flow Rate FiO2 08/21/16 20:00 98.4 66 20 91/44 99 08/20/16 18:33 Room Air Intake and Output 08/21/16 08/21/16 08/22/16 15:00 23:00 07:00 Intake Total 100 ml 1300 ml 150 ml Output Total 500 ml Balance 100 ml 800 ml 150 ml Exam General: Morbidly obese 56 year-old male lying in bed in no apparent distress. HEENT: Normocephalic, atraumatic. Eyes: Anicteric sclerae, conjunctivae clear. ENT: Nasal septum midline, oral mucosa moist. Neck supple, no JVD noticed. Respiratory: Bilaterally clear breath sounds. No use of accessory muscles of respiration. No adventitious breath sounds. Cardiovascular: S1, S2 heard. Regular rate and rhythm. Abdomen: Distended. Bowel sounds positive in all 4 quadrants. Left lower quadrant tenderness. Genitourinary: Deferred. Extremities: No cyanosis, no clubbing. Bilateral lower extremity 2+ pitting edema. Peripheral pulses palpable. Neurologic: Cranial nerves II through XII grossly intact. The patient is awake, alert, and oriented. Skin: Normal skin turgor. No skin rashes. Results Result Diagram: 08/21/16 0505 08/21/16 0505 Results 24 hrs Laboratory Tests Test 08/21/16 05:05 White Blood Count 2.9 L Red Blood Count 2.96 L Hemoglobin 8.8 L Hematocrit 26.9 L Mean Corpuscular Volume 90.9 Mean Corpuscular Hemoglobin 29.7 Mean Corpuscular Hemoglobin Concent 32.7 Red Cell Distribution Width 16.4 H Platelet Count 61 L Mean Platelet Volume 8.6 Neutrophils % 52.2 Lymphocytes % 24.8 Monocytes % 14.5 H Eosinophils % 4.8 Basophils % 0.3 Nucleated Red Blood Cells % 0.0 Neutrophils # 1.5 L Lymphocytes # 0.7 L Monocytes # 0.4 Eosinophils # 0.1 Basophils # 0.0 Nucleated Red Blood Cells # 0.0 Sodium Level 141 Potassium Level 3.9 Chloride Level 110 Carbon Dioxide Level 19 L Anion Gap 16 Blood Urea Nitrogen 7 Creatinine 0.72 Glucose Level 65 L Calcium Level 8.1 L Phosphorus Level 3.3 Magnesium Level 1.7 Total Bilirubin 0.2 Direct Bilirubin 0.00 Indirect Bilirubin 0.2 Aspartate Amino Transf (AST/SGOT) 52 H Alanine Aminotransferase (ALT/SGPT) 45 Alkaline Phosphatase 245 H Ammonia 10 Total Protein 5.4 L Albumin 2.2 L Globulin 3.20 Albumin/Globulin Ratio 0.68 Medications Medications Current Medications Ondansetron HCl (Zofran Inj) 4 mg Q6H PRN IV NAUSEA AND/OR VOMITING Last administered on 08/16/16 18:08; Admin Dose 4 MG; Start 08/16/16 at 10:00 Acetaminophen (Tylenol Tab) 650 mg Q6H PRN PO PAIN LEVEL 1-3 OR FEVER Last administered on 08/17/16 22:59; Admin Dose 650 MG; Start 08/16/16 at 10:00 Acetaminophen/ Hydrocodone Bitart ([place] (5/325)) 1 tab Q6H PRN PO MODERATE PAIN LEVEL 4-6 Last administered on 08/18/16 14:25; Admin Dose 1 TAB; Start at 10:00 Morphine Sulfate (morphine) 2 mg Q4H PRN IV SEVERE PAIN LEVEL 7-10; Start 08/16 at 10:00 Pantoprazole (Protonix Tab) 40 mg DAILY@06 PO Last administered on 08/21/16 06: 26; Admin Dose 40 MG; Start 08/17/16 at 06:00 Ferrous Sulfate (Ferrous Sulfate (Ec)) 325 mg DAILY PO Last administered on 08/21 09:29; Admin Dose 325 MG; Start 08/17/16 at 09:00 Levetiracetam (Keppra) 2,000 mg Q12H PO Last administered on 08/21/16 23:09; Admin Dose 2,000 MG; Start 08/16/16 at 10:00 Propranolol HCl (Inderal) 10 mg BID PO Last administered on 08/21/16 09:29; Admin Dose 10 MG; Start 08/16/16 at 21:00 Zinc Sulfate 220 mg 220 mg DAILY PO Last administered on 08/21/16 09:29; Admin Dose 220 MG; Start 08/17/16 at 09:00 Metronidazole (Flagyl 500 Mg (Pmx)) 100 ml @ 100 mls/hr Q8 IVPB Last administered on 08/21/16 23:09; Admin Dose 100 MLS/HR; Start 08/16/16 at 14:00 Lorazepam (Ativan) 0.5 mg Q6H PRN PO ANXIETY; Start 08/16/16 at 16:30 Furosemide (Lasix) 20 mg DAILY IV Last administered on 08/20/16 09:34; Admin Dose 20 MG; Start 6/28/17 at 09:00 Vancomycin HCl 250 mg 250 mg Q6 PO Last administered on 08/21/16 18:39; Admin Dose 250 MG; Start 08/17/16 at 14:30 Levofloxacin/ Dextrose (Levaquin 750 Mg/ D5W 150 ml (Pmx)) 150 ml @ 100 mls/hr Q24H IVPB Last administered on 08/21/16 20:37; Admin Dose 100 MLS/HR; Start at 21:00 ELVA TEE MD Aug 22, 2016 00:10
[2016-08-22] MEDS: VANCOMYCIN HCL 250 MG/5ML POSYG PO SCH ×4 (00:37→17:56)
[2016-08-22] MEDS: PANTOPRAZOLE (EC) 40 MG TAB PO SCH (05:44)
[2016-08-22] MEDS: metroNIDAZOLE 500 MG/NS (PMX) 100 ML IVPB SCH ×3 (05:45→22:47)
[2016-08-22 07:30] VITALS: BP 96/53; RESP 18
[2016-08-22] MEDS: PROPRANOLOL 10 MG TAB PO SCH ×2 (09:00→20:37)
[2016-08-22] MEDS: FUROSEMIDE 20 MG INJ IV SCH (09:00)
[2016-08-22 09:35] LABS: ADD SCAN DIFF NO
[2016-08-22] MEDS: ZINC SULFATE 220 MG CAP PO SCH (09:38)
[2016-08-22] MEDS: FERROUS SULFATE (EC) 325 MG TAB PO SCH (09:38)
[2016-08-22] MEDS: LEVETIRACETAM 500 MG TAB PO SCH ×2 (09:38→22:46)
[2016-08-22 10:03] LABS: MAGNESIUM 1.7 mg/dl (1.7-2.5); PHOSPHORUS 3.6 mg/dl (2.5-4.9)
[2016-08-22 10:05] LABS: ALBUMIN 2.4 g/dl (3.3-4.9); ALBUMIN/GLOBULIN RATIO 0.77; BILIRUBIN,INDIRECT 0.2 mg/dl (0-1.1); BILIRUBIN,TOTAL 0.2 mg/dl (0.2-1.3); CALCIUM 7.7 mg/dl (8.4-10.2); CREATININE 0.75 mg/dl (0.61-1.24); POTASSIUM 3.5 mmol/L (3.5-5.1); TOTAL PROTEIN 5.5 g/dl (6.1-8.1)
[2016-08-22 10:30] LABS: ABNORMAL IP MESSAGE 1; EOSINOPHILS # 0.1 10^3/ul (0.0-0.5); EOSINOPHILS % 3.9 % (0.0-7.0); HEMATOCRIT 26.7 % (42.0-52.0); HEMOGLOBIN 8.7 g/dl (14.0-18.0); LYMPHOCYTES # 0.7 10^3/ul (0.8-2.9); MEAN CORPUSCULAR HEMOGLOBIN 29.9 pg (29.0-33.0); MEAN CORPUSCULAR HGB CONC 32.6 g/dl (32.0-37.0); MEAN CORPUSCULAR VOLUME 91.8 fl (82.0-101.0); MEAN PLATELET VOLUME 9.2 fl (7.4-10.4); MONOCYTE # 0.4 10^3/ul (0.3-0.9); MONOCYTES % 13.9 % (0.0-11.0); NEUTROPHIL # 1.7 10^3/ul (1.6-7.5); NEUTROPHILS % 55.3 % (39.0-77.0); PLATELET COUNT 71 10^3/UL (140-415); RED BLOOD COUNT 2.91 10^6/ul (4.70-6.10); RED CELL DISTRIBUTION WIDTH 16.5 % (11.5-14.5); WHITE BLOOD COUNT 3.1 10^3/ul (4.8-10.8)
[2016-08-22] MEDS: ONDANSETRON 4 MG INJ IV PRN (10:50)
--- NOTE | 2016-08-22 12:15 | PN ---
Date/Time of Note Date/Time of Note DATE: 08/22/16 TIME: 12:07 Assessment/Plan VTE Prophylaxis VTE Prophylaxis Intervention: SCD's Lines/Catheters [facility] [place] Urinary Cath still in place: No Assessment/Plan Chief Complaint/Hosp Course A/P: 56-year-old male with past medical history of liver cirrhosis of unclear etiology, leukemia status post radiation and chemotherapy in the past, seizure disorder, and morbid obesity who p/w sepsis secondary to underlying urinary tract infection and C. difficile colitis. 1. Sepsis secondary to underlying urinary tract infection and C. difficile colitis. No fever, no leukocytosis. - Continue antimicrobials. The patient has no evidence of any septic shock. - f/u ID rec's - continue PT 2. Liver cirrhosis. The patient's ammonia level is within normal limits. The patient's chest x-ray showing no evidence of any pulmonary vascular congestion. - monitor 3. Abdominal pain. Abdominal CT scan initially showing moderate amount of water density free intraperitoneal fluid. The CT also revealed diverticuli within the descending colon and sigmoid colon and there is stranding within the fat along the descending colon raising the suspicion of diverticulitis. CT also revealed extensive cholelithiasis with gallbladder mildly distended with no gallbladder wall thickening or bile duct dilatation. - monitor, patient being followed by gastroenterology. 4. Seizure disorder. The patient's antiseizure medications will be continued. 5. Normocytic normochromic anemia. Most probably anemia of chronic disease. Iron panel showing iron deficiency. Patient already on iron supplements. 6. Thrombocytopenia. Most probably secondary to underlying liver cirrhosis. No bleeding. - Will monitor the H&H closely. Will avoid any anticoagulants. 7. C. difficile colitis. - Continue antimicrobials. - Enteric precautions. - f/u ID rec's 8. Urinary tract infection. - Continue antibiotics. - Infectious diseases on the case. 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 Remote history of leukemia. Being followed by hematology/oncology. 11. Fluids, electrolytes, and nutrition. The patient was started on clear liquids as per gastroenterology. 12. DVT prophylaxis. Bilateral sequential compression devices. 13. Gastrointestinal prophylaxis. Proton pump inhibitors. Plan. Continue antimicrobials. Advancement of diet as per gastroenterology. Problems: Subjective 24 Hr Interval Summary Free Text/Dictation Pt had some nausea this AM. Exam/Review of Systems Vital Signs Vitals Vital Signs Date Time Temp Pulse Resp B/P Pulse Ox O2 Delivery O2 Flow Rate FiO2 08/22/16 07:30 98.5 83 18 96/53 99 08/20/16 18:33 Room Air Intake and Output 08/21/16 08/21/16 08/22/16 15:00 23:00 07:00 Intake Total 100 ml 1300 ml 850 ml Output Total 500 ml Balance 100 ml 800 ml 850 ml Exam General: Morbidly obese 56 year-old male lying in bed in no apparent distress. HEENT: Normocephalic, atraumatic. Eyes: Anicteric sclerae, conjunctivae clear. ENT: Nasal septum midline, oral mucosa moist. Neck supple, no JVD noticed. Respiratory: Bilaterally clear breath sounds. No use of accessory muscles of respiration. No adventitious breath sounds. Cardiovascular: S1, S2 heard. Regular rate and rhythm. Abdomen: less distended. Bowel sounds positive in all 4 quadrants. less left lower quadrant tenderness. Extremities: No cyanosis, no clubbing. Bilateral lower extremity 2+ pitting edema. Neurologic: Cranial nerves II through XII grossly intact. The patient is awake, alert, and oriented. Skin: Normal skin turgor. No skin rashes. Results Result Diagram: 08/22/16 0911 08/22/16 0911 Results 24 hrs Laboratory Tests Test 08/22/16 09:11 White Blood Count 3.1 L Red Blood Count 2.91 L Hemoglobin 8.7 L Hematocrit 26.7 L Mean Corpuscular Volume 91.8 Mean Corpuscular Hemoglobin 29.9 Mean Corpuscular Hemoglobin Concent 32.6 Red Cell Distribution Width 16.5 H Platelet Count 71 L Mean Platelet Volume 9.2 Neutrophils % 55.3 Lymphocytes % 22.0 Monocytes % 13.9 H Eosinophils % 3.9 Basophils % 1.0 Nucleated Red Blood Cells % 0.0 Neutrophils # 1.7 Lymphocytes # 0.7 L Monocytes # 0.4 Eosinophils # 0.1 Basophils # 0.0 Nucleated Red Blood Cells # 0.0 Sodium Level 131 L Potassium Level 3.5 Chloride Level 111 H Carbon Dioxide Level 16 L Anion Gap 8 # Blood Urea Nitrogen 6 L Creatinine 0.75 Glucose Level 64 L Calcium Level 7.7 L Phosphorus Level 3.6 Magnesium Level 1.7 Total Bilirubin 0.2 Direct Bilirubin 0.00 Indirect Bilirubin 0.2 Aspartate Amino Transf (AST/SGOT) 58 H Alanine Aminotransferase (ALT/SGPT) 47 Alkaline Phosphatase 260 H Total Protein 5.5 L Albumin 2.4 L Globulin 3.10 Albumin/Globulin Ratio 0.77 Medications Medications Current Medications Ondansetron HCl (Zofran Inj) 4 mg Q6H PRN IV NAUSEA AND/OR VOMITING Last administered on 08/22/16 10:50; Admin Dose 4 MG; Start 08/16/16 at 10:00 Acetaminophen (Tylenol Tab) 650 mg Q6H PRN PO PAIN LEVEL 1-3 OR FEVER Last administered on 08/17/16 22:59; Admin Dose 650 MG; Start 08/16/16 at 10:00 Acetaminophen/ Hydrocodone Bitart ([place] (5/325)) 1 tab Q6H PRN PO MODERATE PAIN LEVEL 4-6 Last administered on 08/18/16 14:25; Admin Dose 1 TAB; Start at 10:00 Morphine Sulfate (morphine) 2 mg Q4H PRN IV SEVERE PAIN LEVEL 7-10; Start 08/16 at 10:00 Pantoprazole (Protonix Tab) 40 mg DAILY@06 PO Last administered on 08/22/16 05: 44; Admin Dose 40 MG; Start 08/17/16 at 06:00 Ferrous Sulfate (Ferrous Sulfate (Ec)) 325 mg DAILY PO Last administered on 08/22 09:38; Admin Dose 325 MG; Start 08/17/16 at 09:00 Levetiracetam (Keppra) 2,000 mg Q12H PO Last administered on 08/22/16 09:38; Admin Dose 2,000 MG; Start 08/16/16 at 10:00 Propranolol HCl (Inderal) 10 mg BID PO Last administered on 08/21/16 09:29; Admin Dose 10 MG; Start 08/16/16 at 21:00 Zinc Sulfate 220 mg 220 mg DAILY PO Last administered on 08/22/16 09:38; Admin Dose 220 MG; Start 08/17/16 at 09:00 Metronidazole (Flagyl 500 Mg (Pmx)) 100 ml @ 100 mls/hr Q8 IVPB Last administered on 08/22/16 05:45; Admin Dose 100 MLS/HR; Start 08/16/16 at 14:00 Lorazepam (Ativan) 0.5 mg Q6H PRN PO ANXIETY; Start 08/16/16 at 16:30 Furosemide (Lasix) 20 mg DAILY IV Last administered on 08/20/16 09:34; Admin Dose 20 MG; Start 08/17/16 at 09:00 Vancomycin HCl 250 mg 250 mg Q6 PO Last administered on 08/22/16 05:45; Admin Dose 250 MG; Start 08/17/16 at 14:30 Levofloxacin/ Dextrose (Levaquin 750 Mg/ D5W 150 ml (Pmx)) 150 ml @ 100 mls/hr Q24H IVPB Last administered on 08/21/16 20:37; Admin Dose 100 MLS/HR; Start at 21:00 ADRIANE YE Aug 22, 2016 12:15
--- NOTE | 2016-08-22 17:52 | CONS ---
Date/Time of Note Date/Time of Note DATE: 08/22/16 TIME: 17:51 Assessment/Plan Assessment/Plan Chief Complaint/Hosp Course Subjective: No acute events, no fevers, looks comfortable Antimicrobials: Oral vancomycin, Flagyl, Levaquin Physical examination: Morbidly obese well-developed middle-aged man who is alert in no distress HEENT within normal limits Neck is supple lymph nodes nonpalpable Chest decreased breath sounds at the bases Heart without murmur gallop Abdomen is soft, obese, with a fluid wave. Extremities: 1-2+ edema with stasis changes Neurological: No focal neurological abnormalities Assessment: 1. C. difficile colitis 2. Polymicrobial UTI 3. VRE stool colonization 4. Morbid obesity 5. Seizure disorder Plan: Patient remains stable, continue Levaquin for couple more days, continue other antibiotics DW pt/staff Problems: Consultation Date/Type/Reason Admit Date/Time Aug 16, 2016 at 05:49 Initial Consult Date 08/16/16 Type of Consultation: Infectious disease Referring Provider: MALU CORONADO [employer]ALITY IMPROVEMENT COORDINATOR Exam/Review of Systems Vital Signs Vitals Vital Signs Date Time Temp Pulse Resp B/P Pulse Ox O2 Delivery O2 Flow Rate FiO2 08/22/16 07:30 98.5 83 18 96/53 99 08/20/16 18:33 Room Air Intake and Output 08/21/16 08/21/16 08/22/16 15:00 23:00 07:00 Intake Total 100 ml 1300 ml 850 ml Output Total 500 ml Balance 100 ml 800 ml 850 ml Results Result Diagram: 08/22/16 0911 08/22/16 0911 Results 24 hrs Laboratory Tests Test 08/22/16 09:11 White Blood Count 3.1 L Red Blood Count 2.91 L Hemoglobin 8.7 L Hematocrit 26.7 L Mean Corpuscular Volume 91.8 Mean Corpuscular Hemoglobin 29.9 Mean Corpuscular Hemoglobin Concent 32.6 Red Cell Distribution Width 16.5 H Platelet Count 71 L Mean Platelet Volume 9.2 Neutrophils % 55.3 Lymphocytes % 22.0 Monocytes % 13.9 H Eosinophils % 3.9 Basophils % 1.0 Nucleated Red Blood Cells % 0.0 Neutrophils # 1.7 Lymphocytes # 0.7 L Monocytes # 0.4 Eosinophils # 0.1 Basophils # 0.0 Nucleated Red Blood Cells # 0.0 Sodium Level 131 L Potassium Level 3.5 Chloride Level 111 H Carbon Dioxide Level 16 L Anion Gap 8 # Blood Urea Nitrogen 6 L Creatinine 0.75 Glucose Level 64 L Calcium Level 7.7 L Phosphorus Level 3.6 Magnesium Level 1.7 Total Bilirubin 0.2 Direct Bilirubin 0.00 Indirect Bilirubin 0.2 Aspartate Amino Transf (AST/SGOT) 58 H Alanine Aminotransferase (ALT/SGPT) 47 Alkaline Phosphatase 260 H Total Protein 5.5 L Albumin 2.4 L Globulin 3.10 Albumin/Globulin Ratio 0.77 Medications Medications Current Medications Ondansetron HCl (Zofran Inj) 4 mg Q6H PRN IV NAUSEA AND/OR VOMITING Last administered on 08/22/16 10:50; Admin Dose 4 MG; Start 08/16/16 at 10:00 Acetaminophen (Tylenol Tab) 650 mg Q6H PRN PO PAIN LEVEL 1-3 OR FEVER Last administered on 08/17/16 22:59; Admin Dose 650 MG; Start 08/16/16 at 10:00 Acetaminophen/ Hydrocodone Bitart ([place] (5/325)) 1 tab Q6H PRN PO MODERATE PAIN LEVEL 4-6 Last administered on 08/18/16 14:25; Admin Dose 1 TAB; Start at 10:00 Morphine Sulfate (morphine) 2 mg Q4H PRN IV SEVERE PAIN LEVEL 7-10; Start 08/16 at 10:00 Pantoprazole (Protonix Tab) 40 mg DAILY@06 PO Last administered on 08/22/16 05: 44; Admin Dose 40 MG; Start 08/17/16 at 06:00 Ferrous Sulfate (Ferrous Sulfate (Ec)) 325 mg DAILY PO Last administered on 08/22 09:38; Admin Dose 325 MG; Start 08/17/16 at 09:00 Levetiracetam (Keppra) 2,000 mg Q12H PO Last administered on 08/22/16 09:38; Admin Dose 2,000 MG; Start 08/16/16 at 10:00 Propranolol HCl (Inderal) 10 mg BID PO Last administered on 08/21/16 09:29; Admin Dose 10 MG; Start 08/16/16 at 21:00 Zinc Sulfate 220 mg 220 mg DAILY PO Last administered on 08/22/16 09:38; Admin Dose 220 MG; Start 08/17/16 at 09:00 Metronidazole (Flagyl 500 Mg (Pmx)) 100 ml @ 100 mls/hr Q8 IVPB Last administered on 08/22/16 13:03; Admin Dose 100 MLS/HR; Start 08/16/16 at 14:00 Lorazepam (Ativan) 0.5 mg Q6H PRN PO ANXIETY; Start 08/16/16 at 16:30 Furosemide (Lasix) 20 mg DAILY IV Last administered on 08/20/16 09:34; Admin Dose 20 MG; Start 08/17/16 at 09:00 Vancomycin HCl 250 mg 250 mg Q6 PO Last administered on 08/22/16 12:15; Admin Dose 250 MG; Start 08/17/16 at 14:30 Levofloxacin/ Dextrose (Levaquin 750 Mg/ D5W 150 ml (Pmx)) 150 ml @ 100 mls/hr Q24H IVPB Last administered on 08/21/16 20:37; Admin Dose 100 MLS/HR; Start at 21:00 REBEKAH JERNIGAN NP Aug 22, 2016 17:52
[2016-08-22 19:33] VITALS: BP 96/53; RESP 18
[2016-08-22 19:48] VITALS: BP 100/63; RESP 18
[2016-08-22] MEDS: LEVOFLOXACIN 750MG/D5W (PMX) 150 ML IVPB SCH (20:36)
--- NOTE | 2016-08-22 22:12 | CONS ---
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 Most probably anemia of chronic disease. Iron panel showing iron deficiency. Patient already on iron supplements. Thrombocytopenia. ? secondary to underlying liver cirrhosis. ? 2 TO SEPSIS DIC- NEG AVOID MYELOSUPPRESSIVE MEDS Will avoid any anticoagulants. Sepsis secondary to underlying urinary tract infection and C. difficile colitis. Continue antimicrobials. The patient has no evidence of any septic shock. Liver cirrhosis. The patient's ammonia level is within normal limits. The patient will be gently diuresed. The patient's chest x-ray showing no evidence of any pulmonary vascular congestion. MILD SPLENOMEGALY- MOST LIKELY 2 TO LIVER CIRRHOSIS Abdominal pain. Abdominal CT scan showing moderate amount of water density free intraperitoneal fluid. The CT also revealed diverticuli within the descending colon and sigmoid colon and there is stranding within the fat along the descending colon raising the suspicion of diverticulitis. CT also revealed extensive cholelithiasis with gallbladder mildly distended with no gallbladder wall thickening or bile duct dilatation. Patient being followed by gastroenterology. Seizure disorder. The patient's antiseizure medications will be continued. C. difficile colitis. Continue antimicrobials. Enteric precautions. Urinary tract infection. Continue antibiotics. Infectious diseases on the case. Fluids, electrolytes, and nutrition. The patient was started on clear liquids as per gastroenterology. DVT prophylaxis. Bilateral sequential compression devices. Gastrointestinal prophylaxis. Proton pump inhibitors. Problems: Consultation Date/Type/Reason Admit Date/Time Aug 16, 2016 at 05:49 Initial Consult Date 08/19/16 Type of Consultation: [facility] Referring Provider: MALU CORONADO NP 24 HR Interval Summary Free Text/Dictation ALL NOTED NO NEW EVENTS FLOW- STILL - P Exam/Review of Systems Vital Signs Vitals Vital Signs Date Time Temp Pulse Resp B/P Pulse Ox O2 Delivery O2 Flow Rate FiO2 08/22/16 19:48 97.8 62 18 100/63 99 08/20/16 18:33 Room Air Intake and Output 08/21/16 08/21/16 08/22/16 15:00 23:00 07:00 Intake Total 100 ml 1300 ml 850 ml Output Total 500 ml Balance 100 ml 800 ml 850 ml Exam General: Morbidly obese 56 year-old male lying in bed in no apparent distress. HEENT: Normocephalic, atraumatic. Eyes: Anicteric sclerae, conjunctivae clear. ENT: Nasal septum midline, oral mucosa moist. Neck supple, no JVD noticed. Respiratory: Bilaterally clear breath sounds. No use of accessory muscles of respiration. No adventitious breath sounds. Cardiovascular: S1, S2 heard. Regular rate and rhythm. Abdomen: Distended. Bowel sounds positive in all 4 quadrants. Left lower quadrant tenderness. Genitourinary: Deferred. Extremities: No cyanosis, no clubbing. Bilateral lower extremity 2+ pitting edema. Peripheral pulses palpable. Neurologic: Cranial nerves II through XII grossly intact. The patient is awake, alert, and oriented. Skin: Normal skin turgor. No skin rashes. Results Result Diagram: 08/22/16 0911 08/22/16 0911 Results 24 hrs Laboratory Tests Test 08/22/16 09:11 White Blood Count 3.1 L Red Blood Count 2.91 L Hemoglobin 8.7 L Hematocrit 26.7 L Mean Corpuscular Volume 91.8 Mean Corpuscular Hemoglobin 29.9 Mean Corpuscular Hemoglobin Concent 32.6 Red Cell Distribution Width 16.5 H Platelet Count 71 L Mean Platelet Volume 9.2 Neutrophils % 55.3 Lymphocytes % 22.0 Monocytes % 13.9 H Eosinophils % 3.9 Basophils % 1.0 Nucleated Red Blood Cells % 0.0 Neutrophils # 1.7 Lymphocytes # 0.7 L Monocytes # 0.4 Eosinophils # 0.1 Basophils # 0.0 Nucleated Red Blood Cells # 0.0 Sodium Level 131 L Potassium Level 3.5 Chloride Level 111 H Carbon Dioxide Level 16 L Anion Gap 8 # Blood Urea Nitrogen 6 L Creatinine 0.75 Glucose Level 64 L Calcium Level 7.7 L Phosphorus Level 3.6 Magnesium Level 1.7 Total Bilirubin 0.2 Direct Bilirubin 0.00 Indirect Bilirubin 0.2 Aspartate Amino Transf (AST/SGOT) 58 H Alanine Aminotransferase (ALT/SGPT) 47 Alkaline Phosphatase 260 H Total Protein 5.5 L Albumin 2.4 L Globulin 3.10 Albumin/Globulin Ratio 0.77 Medications Medications Current Medications Ondansetron HCl (Zofran Inj) 4 mg Q6H PRN IV NAUSEA AND/OR VOMITING Last administered on 08/22/16 10:50; Admin Dose 4 MG; Start 08/16/16 at 10:00 Acetaminophen (Tylenol Tab) 650 mg Q6H PRN PO PAIN LEVEL 1-3 OR FEVER Last administered on 08/17/16 22:59; Admin Dose 650 MG; Start 08/16/16 at 10:00 Acetaminophen/ Hydrocodone Bitart ([place] (5/325)) 1 tab Q6H PRN PO MODERATE PAIN LEVEL 4-6 Last administered on 08/18/16 14:25; Admin Dose 1 TAB; Start at 10:00 Morphine Sulfate (morphine) 2 mg Q4H PRN IV SEVERE PAIN LEVEL 7-10; Start 08/16 at 10:00 Pantoprazole (Protonix Tab) 40 mg DAILY@06 PO Last administered on 08/22/16 05: 44; Admin Dose 40 MG; Start 08/17/16 at 06:00 Ferrous Sulfate (Ferrous Sulfate (Ec)) 325 mg DAILY PO Last administered on 08/22 09:38; Admin Dose 325 MG; Start 08/17/16 at 09:00 Levetiracetam (Keppra) 2,000 mg Q12H PO Last administered on 08/22/16 09:38; Admin Dose 2,000 MG; Start 08/16/16 at 10:00 Propranolol HCl (Inderal) 10 mg BID PO Last administered on 08/21/16 09:29; Admin Dose 10 MG; Start 08/16/16 at 21:00 Zinc Sulfate 220 mg 220 mg DAILY PO Last administered on 08/22/16 09:38; Admin Dose 220 MG; Start 08/17/16 at 09:00 Metronidazole (Flagyl 500 Mg (Pmx)) 100 ml @ 100 mls/hr Q8 IVPB Last administered on 08/22/16 13:03; Admin Dose 100 MLS/HR; Start 08/16/16 at 14:00 Lorazepam (Ativan) 0.5 mg Q6H PRN PO ANXIETY; Start 08/16/16 at 16:30 Furosemide (Lasix) 20 mg DAILY IV Last administered on 08/20/16 09:34; Admin Dose 20 MG; Start 08/17/16 at 09:00 Vancomycin HCl 250 mg 250 mg Q6 PO Last administered on 08/22/16 17:56; Admin Dose 250 MG; Start 08/17/16 at 14:30 Levofloxacin/ Dextrose (Levaquin 750 Mg/ D5W 150 ml (Pmx)) 150 ml @ 100 mls/hr Q24H IVPB Last administered on 08/22/16 20:36; Admin Dose 100 MLS/HR; Start at 21:00 ELVA TEE MD Aug 22, 2016 22:11
[2016-08-23] MEDS: VANCOMYCIN HCL 250 MG/5ML POSYG PO SCH ×4 (00:06→17:31)
[2016-08-23] MEDS ORDERED: VITAMIN A & D 5 GM OINT PACKET TOP ONE (02:35)
[2016-08-23] MEDS: PANTOPRAZOLE (EC) 40 MG TAB PO SCH (05:29)
[2016-08-23] MEDS: metroNIDAZOLE 500 MG/NS (PMX) 100 ML IVPB SCH ×3 (05:29→21:06)
[2016-08-23 07:16] LABS: ADD SCAN DIFF NO
[2016-08-23 07:20] LABS: ABNORMAL IP MESSAGE 1; BASOPHILS % 0.9 % (0.0-2.0); EOSINOPHILS # 0.1 10^3/ul (0.0-0.5); EOSINOPHILS % 4.1 % (0.0-7.0); HEMATOCRIT 27.5 % (42.0-52.0); LYMPHOCYTES # 0.7 10^3/ul (0.8-2.9); LYMPHOCYTES % 21.4 % (15.0-51.0); MEAN CORPUSCULAR HEMOGLOBIN 29.8 pg (29.0-33.0); MEAN CORPUSCULAR HGB CONC 32.7 g/dl (32.0-37.0); MEAN CORPUSCULAR VOLUME 91.1 fl (82.0-101.0); MEAN PLATELET VOLUME 8.6 fl (7.4-10.4); MONOCYTE # 0.6 10^3/ul (0.3-0.9); MONOCYTES % 16.5 % (0.0-11.0); NEUTROPHIL # 1.8 10^3/ul (1.6-7.5); NEUTROPHILS % 51.9 % (39.0-77.0); PLATELET COUNT 69 10^3/UL (140-415); RED BLOOD COUNT 3.02 10^6/ul (4.70-6.10); RED CELL DISTRIBUTION WIDTH 16.9 % (11.5-14.5); WHITE BLOOD COUNT 3.5 10^3/ul (4.8-10.8)
[2016-08-23 07:33] VITALS: BP 94/51; RESP 20
[2016-08-23 07:40] LABS: MAGNESIUM 1.5 mg/dl (1.7-2.5); PHOSPHORUS 3.6 mg/dl (2.5-4.9)
[2016-08-23 07:41] LABS: CALCIUM 7.7 mg/dl (8.4-10.2); CREATININE 0.79 mg/dl (0.61-1.24); POTASSIUM 3.4 mmol/L (3.5-5.1)
[2016-08-23] MEDS: FERROUS SULFATE (EC) 325 MG TAB PO SCH (08:54)
[2016-08-23] MEDS: PROPRANOLOL 10 MG TAB PO SCH ×2 (08:55→21:00)
[2016-08-23] MEDS: ZINC SULFATE 220 MG CAP PO SCH (08:55)
[2016-08-23] MEDS: LEVETIRACETAM 500 MG TAB PO SCH ×2 (08:55→21:06)
[2016-08-23] MEDS: FUROSEMIDE 20 MG INJ IV SCH (08:56)
[2016-08-23] MEDS ORDERED: POTASSIUM CHLORIDE (SR) 20 MEQ TAB PO STA (10:11)
--- NOTE | 2016-08-23 10:14 | PN ---
Date/Time of Note Date/Time of Note DATE: 08/23/16 TIME: 10:14 Assessment/Plan VTE Prophylaxis VTE Prophylaxis Intervention: SCD's Lines/Catheters IV [facility] [place] [facility] Urinary Cath still in place: No Assessment/Plan Chief Complaint/Hosp Course A/P: 56-year-old male with past medical history of liver cirrhosis of unclear etiology, leukemia status post radiation and chemotherapy in the past, seizure disorder, and morbid obesity who p/w sepsis secondary to underlying urinary tract infection and C. difficile colitis. 1. Sepsis secondary to underlying urinary tract infection and C. difficile colitis. No fever, no leukocytosis - improving. - Continue antimicrobials per ID rec's. The patient has no evidence of any septic shock. - f/u ID rec's - continue PT 2. Liver cirrhosis. The patient's ammonia level is within normal limits. The patient's chest x-ray showing no evidence of any pulmonary vascular congestion. - monitor 3. Abdominal pain. Abdominal CT scan initially showing moderate amount of water density free intraperitoneal fluid. The CT also revealed diverticuli within the descending colon and sigmoid colon and there is stranding within the fat along the descending colon raising the suspicion of diverticulitis. CT also revealed extensive cholelithiasis with gallbladder mildly distended with no gallbladder wall thickening or bile duct dilatation. - monitor, patient being followed by gastroenterology. 4. Seizure disorder. The patient's antiseizure medications will be continued. 5. Normocytic normochromic anemia. Most probably anemia of chronic disease. Iron panel showing iron deficiency. Patient already on iron supplements. 6. Thrombocytopenia. Most probably secondary to underlying liver cirrhosis. No bleeding. - Will monitor the H&H closely. Will avoid any anticoagulants. 7. C. difficile colitis. - Continue antimicrobials. - Enteric precautions. - f/u ID rec's 8. Urinary tract infection. - Continue antibiotics. - Infectious diseases on the case. 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 Remote history of leukemia. Being followed by hematology/oncology\ - BM biopsy suggested, but pt refusing this when mentioned to him today. 11. Fluids, electrolytes, and nutrition. The patient was started on clear liquids as per gastroenterology - advance to soft today. 12. DVT prophylaxis. Bilateral sequential compression devices. 13. Gastrointestinal prophylaxis. Proton pump inhibitors. Plan. Continue antimicrobials. Advancement of diet as per gastroenterology. Problems: Subjective 24 Hr Interval Summary Free Text/Dictation Pt has no nausea now, asking about his treatment plan and when he can go home. Also asking to advance diet. Exam/Review of Systems Vital Signs Vitals Vital Signs Date Time Temp Pulse Resp B/P Pulse Ox O2 Delivery O2 Flow Rate FiO2 08/23/16 07:33 98.8 83 20 94/51 97 08/20/16 18:33 Room Air Intake and Output 08/22/16 08/22/16 08/23/16 15:00 23:00 07:00 Intake Total 100 ml 1470 ml 560 ml Balance 100 ml 1470 ml 560 ml Exam General: Morbidly obese 56 year-old male lying in bed in no apparent distress. HEENT: Normocephalic, atraumatic. Eyes: Anicteric sclerae, conjunctivae clear. ENT: Nasal septum midline, oral mucosa moist. Neck supple, no JVD noticed. Respiratory: Bilaterally clear breath sounds. No use of accessory muscles of respiration. No adventitious breath sounds. Cardiovascular: S1, S2 heard. Regular rate and rhythm. Abdomen: less distended. Bowel sounds positive in all 4 quadrants. less left lower quadrant tenderness. Extremities: No cyanosis, no clubbing. Bilateral lower extremity 2+ pitting edema. Neurologic: Cranial nerves II through XII grossly intact. The patient is awake, alert, and oriented. Skin: Normal skin turgor. No skin rashes. Results Result Diagram: 08/23/16 0652 08/23/16 0652 Results 24 hrs Laboratory Tests Test 08/23/16 06:52 White Blood Count 3.5 L Red Blood Count 3.02 L Hemoglobin 9.0 L Hematocrit 27.5 L Mean Corpuscular Volume 91.1 Mean Corpuscular Hemoglobin 29.8 Mean Corpuscular Hemoglobin Concent 32.7 Red Cell Distribution Width 16.9 H Platelet Count 69 L Mean Platelet Volume 8.6 Neutrophils % 51.9 Lymphocytes % 21.4 Monocytes % 16.5 H Eosinophils % 4.1 Basophils % 0.9 Nucleated Red Blood Cells % 0.0 Neutrophils # 1.8 Lymphocytes # 0.7 L Monocytes # 0.6 Eosinophils # 0.1 Basophils # 0.0 Nucleated Red Blood Cells # 0.0 Sodium Level 136 Potassium Level 3.4 L Chloride Level 111 H Carbon Dioxide Level 18 L Anion Gap 10 Blood Urea Nitrogen 5 L Creatinine 0.79 Glucose Level 59 L Calcium Level 7.7 L Phosphorus Level 3.6 Magnesium Level 1.5 L Medications Medications Current Medications Ondansetron HCl (Zofran Inj) 4 mg Q6H PRN IV NAUSEA AND/OR VOMITING Last administered on 08/22/16 10:50; Admin Dose 4 MG; Start 08/16/16 at 10:00 Acetaminophen (Tylenol Tab) 650 mg Q6H PRN PO PAIN LEVEL 1-3 OR FEVER Last administered on 08/17/16 22:59; Admin Dose 650 MG; Start 08/16/16 at 10:00 Acetaminophen/ Hydrocodone Bitart ([place] (5/325)) 1 tab Q6H PRN PO MODERATE PAIN LEVEL 4-6 Last administered on 08/18/16 14:25; Admin Dose 1 TAB; Start at 10:00 Morphine Sulfate (morphine) 2 mg Q4H PRN IV SEVERE PAIN LEVEL 7-10; Start 08/16 at 10:00 Pantoprazole (Protonix Tab) 40 mg DAILY@06 PO Last administered on 08/23/16 05: 29; Admin Dose 40 MG; Start 08/17/16 at 06:00 Ferrous Sulfate (Ferrous Sulfate (Ec)) 325 mg DAILY PO Last administered on 08/23 08:54; Admin Dose 325 MG; Start 08/17/16 at 09:00 Levetiracetam (Keppra) 2,000 mg Q12H PO Last administered on 08/23/16 08:55; Admin Dose 2,000 MG; Start 08/16/16 at 10:00 Propranolol HCl (Inderal) 10 mg BID PO Last administered on 08/21/16 09:29; Admin Dose 10 MG; Start 08/16/16 at 21:00 Zinc Sulfate 220 mg 220 mg DAILY PO Last administered on 08/23/16 08:55; Admin Dose 220 MG; Start 08/17/16 at 09:00 Metronidazole (Flagyl 500 Mg (Pmx)) 100 ml @ 100 mls/hr Q8 IVPB Last administered on 08/23/16 05:29; Admin Dose 100 MLS/HR; Start 08/16/16 at 14:00 Lorazepam (Ativan) 0.5 mg Q6H PRN PO ANXIETY; Start 08/16/16 at 16:30 Furosemide (Lasix) 20 mg DAILY IV Last administered on 08/20/16 09:34; Admin Dose 20 MG; Start 08/17/16 at 09:00 Vancomycin HCl 250 mg 250 mg Q6 PO Last administered on 08/23/16 05:29; Admin Dose 250 MG; Start 08/17/16 at 14:30 Levofloxacin/ Dextrose 150 ml @ 100 mls/hr Q24H IVPB Last administered on 20:36; Admin Dose 100 MLS/HR; Start 08/17/16 at 21:00 Magnesium Sulfate (Magnesium Sulfate 2 Gm/50 ml) 50 ml @ 25 mls/hr ONCE ONCE IVPB ; Start 08/23/16 at 10:30; Stop 08/23/16 at 12:29 ADRIANE YE Aug 23, 2016 10:14
[2016-08-23] MEDS ORDERED: MAGNESIUM SULFATE 2 GM/50 ML 50 ML IVPB ONE (10:30)
--- NOTE | 2016-08-23 13:44 | CONS ---
Date/Time of Note Date/Time of Note DATE: 08/23/16 TIME: 13:43 Assessment/Plan Assessment/Plan Chief Complaint/Hosp Course Subjective: No acute events, no fevers, alert, denies pain, no nausea, vomiting , diarrhea, looks comfortable Antimicrobials: Oral vancomycin, Flagyl, Levaquin Physical examination: Morbidly obese well-developed middle-aged man who is alert in no distress HEENT within normal limits Neck is supple lymph nodes nonpalpable Chest decreased breath sounds at the bases Heart without murmur gallop Abdomen is soft, obese, with a fluid wave. Extremities: 1-2+ edema with stasis changes Neurological: No focal neurological abnormalities Assessment: 1. C. difficile colitis 2. Polymicrobial UTI 3. VRE stool colonization 4. Morbid obesity 5. Seizure disorder Plan: Patient remains stable, diarrhea resolving, discontinue Levaquin in a.m., continue other antibiotics, follow recommendations of consultants MARGARITA pt/staff Problems: Consultation Date/Type/Reason Admit Date/Time Aug 16, 2016 at 05:49 Initial Consult Date 08/16/16 Type of Consultation: Infectious disease Referring Provider: MALU CORONADO [employer] Exam/Review of Systems Vital Signs Vitals Vital Signs Date Time Temp Pulse Resp B/P Pulse Ox O2 Delivery O2 Flow Rate FiO2 08/23/16 07:33 98.8 83 20 94/51 97 08/20/16 18:33 Room Air Intake and Output 08/22/16 08/22/16 08/23/16 15:00 23:00 07:00 Intake Total 100 ml 1470 ml 560 ml Balance 100 ml 1470 ml 560 ml Results Result Diagram: 08/23/16 0652 08/23/16 0652 Results 24 hrs Laboratory Tests Test 08/23/16 06:52 White Blood Count 3.5 L Red Blood Count 3.02 L Hemoglobin 9.0 L Hematocrit 27.5 L Mean Corpuscular Volume 91.1 Mean Corpuscular Hemoglobin 29.8 Mean Corpuscular Hemoglobin Concent 32.7 Red Cell Distribution Width 16.9 H Platelet Count 69 L Mean Platelet Volume 8.6 Neutrophils % 51.9 Lymphocytes % 21.4 Monocytes % 16.5 H Eosinophils % 4.1 Basophils % 0.9 Nucleated Red Blood Cells % 0.0 Neutrophils # 1.8 Lymphocytes # 0.7 L Monocytes # 0.6 Eosinophils # 0.1 Basophils # 0.0 Nucleated Red Blood Cells # 0.0 Sodium Level 136 Potassium Level 3.4 L Chloride Level 111 H Carbon Dioxide Level 18 L Anion Gap 10 Blood Urea Nitrogen 5 L Creatinine 0.79 Glucose Level 59 L Calcium Level 7.7 L Phosphorus Level 3.6 Magnesium Level 1.5 L Medications Medications Current Medications Ondansetron HCl (Zofran Inj) 4 mg Q6H PRN IV NAUSEA AND/OR VOMITING Last administered on 08/22/16 10:50; Admin Dose 4 MG; Start 08/16/16 at 10:00 Acetaminophen (Tylenol Tab) 650 mg Q6H PRN PO PAIN LEVEL 1-3 OR FEVER Last administered on 08/17/16 22:59; Admin Dose 650 MG; Start 08/16/16 at 10:00 Acetaminophen/ Hydrocodone Bitart ([place] (5/325)) 1 tab Q6H PRN PO MODERATE PAIN LEVEL 4-6 Last administered on 08/18/16 14:25; Admin Dose 1 TAB; Start at 10:00 Morphine Sulfate (morphine) 2 mg Q4H PRN IV SEVERE PAIN LEVEL 7-10; Start 08/16 at 10:00 Pantoprazole (Protonix Tab) 40 mg DAILY@06 PO Last administered on 08/23/16 05: 29; Admin Dose 40 MG; Start 08/17/16 at 06:00 Ferrous Sulfate (Ferrous Sulfate (Ec)) 325 mg DAILY PO Last administered on 08/23 08:54; Admin Dose 325 MG; Start 08/17/16 at 09:00 Levetiracetam (Keppra) 2,000 mg Q12H PO Last administered on 08/23/16 08:55; Admin Dose 2,000 MG; Start 08/16/16 at 10:00 Propranolol HCl (Inderal) 10 mg BID PO Last administered on 08/21/16 09:29; Admin Dose 10 MG; Start 08/16/16 at 21:00 Zinc Sulfate 220 mg 220 mg DAILY PO Last administered on 08/23/16 08:55; Admin Dose 220 MG; Start 08/17/16 at 09:00 Metronidazole (Flagyl 500 Mg (Pmx)) 100 ml @ 100 mls/hr Q8 IVPB Last administered on 08/23/16 05:29; Admin Dose 100 MLS/HR; Start 08/16/16 at 14:00 Lorazepam (Ativan) 0.5 mg Q6H PRN PO ANXIETY; Start 08/16/16 at 16:30 Furosemide (Lasix) 20 mg DAILY IV Last administered on 08/20/16 09:34; Admin Dose 20 MG; Start 08/17/16 at 09:00 Vancomycin HCl 250 mg 250 mg Q6 PO Last administered on 08/23/16 11:27; Admin Dose 250 MG; Start 08/17/16 at 14:30 Levofloxacin/ Dextrose (Levaquin 750 Mg/ D5W 150 ml (Pmx)) 150 ml @ 100 mls/hr Q24H IVPB Last administered on 08/22/16 20:36; Admin Dose 100 MLS/HR; Start at 21:00 REBEKAH JERNIGAN NP Aug 23, 2016 13:44
[2016-08-23 20:48] VITALS: BP 91/54; RESP 20
--- NOTE | 2016-08-24 00:23 | CONS ---
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 Most probably anemia of chronic disease. Iron panel showing iron deficiency. Patient already on iron supplements. Thrombocytopenia. ? secondary to underlying liver cirrhosis. ? 2 TO SEPSIS DIC- NEG AVOID MYELOSUPPRESSIVE MEDS Will avoid any anticoagulants. Sepsis secondary to underlying urinary tract infection and C. difficile colitis. Continue antimicrobials. The patient has no evidence of any septic shock. Liver cirrhosis. The patient's ammonia level is within normal limits. The patient will be gently diuresed. The patient's chest x-ray showing no evidence of any pulmonary vascular congestion. MILD SPLENOMEGALY- MOST LIKELY 2 TO LIVER CIRRHOSIS Abdominal pain. Abdominal CT scan showing moderate amount of water density free intraperitoneal fluid. The CT also revealed diverticuli within the descending colon and sigmoid colon and there is stranding within the fat along the descending colon raising the suspicion of diverticulitis. CT also revealed extensive cholelithiasis with gallbladder mildly distended with no gallbladder wall thickening or bile duct dilatation. Patient being followed by gastroenterology. Seizure disorder. The patient's antiseizure medications will be continued. C. difficile colitis. Continue antimicrobials. Enteric precautions. Urinary tract infection. Continue antibiotics. Infectious diseases on the case. Fluids, electrolytes, and nutrition. The patient was started on clear liquids as per gastroenterology. DVT prophylaxis. Bilateral sequential compression devices. Gastrointestinal prophylaxis. Proton pump inhibitors. Problems: Consultation Date/Type/Reason Admit Date/Time Aug 16, 2016 at 05:49 Initial Consult Date 08/19/16 Type of Consultation: [facility] Referring Provider: MALU CORONADO NP 24 HR Interval Summary Free Text/Dictation ALL NOTED NO NEW EVENTS Exam/Review of Systems Vital Signs Vitals Vital Signs Date Time Temp Pulse Resp B/P Pulse Ox O2 Delivery O2 Flow Rate FiO2 08/23/16 20:48 97.8 81 20 91/54 97 08/20/16 18:33 Room Air Intake and Output 08/23/16 08/23/16 08/24/16 15:00 23:00 07:00 Intake Total 1410 ml Balance 1410 ml Exam General: Morbidly obese 56 year-old male lying in bed in no apparent distress. HEENT: Normocephalic, atraumatic. Eyes: Anicteric sclerae, conjunctivae clear. ENT: Nasal septum midline, oral mucosa moist. Neck supple, no JVD noticed. Respiratory: Bilaterally clear breath sounds. No use of accessory muscles of respiration. No adventitious breath sounds. Cardiovascular: S1, S2 heard. Regular rate and rhythm. Abdomen: Distended. Bowel sounds positive in all 4 quadrants. Left lower quadrant tenderness. Genitourinary: Deferred. Extremities: No cyanosis, no clubbing. Bilateral lower extremity 2+ pitting edema. Peripheral pulses palpable. Neurologic: Cranial nerves II through XII grossly intact. The patient is awake, alert, and oriented. Skin: Normal skin turgor. No skin rashes. Results Result Diagram: 08/23/16 0652 08/23/16 0652 Results 24 hrs Laboratory Tests Test 08/23/16 06:52 White Blood Count 3.5 L Red Blood Count 3.02 L Hemoglobin 9.0 L Hematocrit 27.5 L Mean Corpuscular Volume 91.1 Mean Corpuscular Hemoglobin 29.8 Mean Corpuscular Hemoglobin Concent 32.7 Red Cell Distribution Width 16.9 H Platelet Count 69 L Mean Platelet Volume 8.6 Neutrophils % 51.9 Lymphocytes % 21.4 Monocytes % 16.5 H Eosinophils % 4.1 Basophils % 0.9 Nucleated Red Blood Cells % 0.0 Neutrophils # 1.8 Lymphocytes # 0.7 L Monocytes # 0.6 Eosinophils # 0.1 Basophils # 0.0 Nucleated Red Blood Cells # 0.0 Sodium Level 136 Potassium Level 3.4 L Chloride Level 111 H Carbon Dioxide Level 18 L Anion Gap 10 Blood Urea Nitrogen 5 L Creatinine 0.79 Glucose Level 59 L Calcium Level 7.7 L Phosphorus Level 3.6 Magnesium Level 1.5 L Medications Medications Current Medications Ondansetron HCl (Zofran Inj) 4 mg Q6H PRN IV NAUSEA AND/OR VOMITING Last administered on 08/22/16 10:50; Admin Dose 4 MG; Start 08/16/16 at 10:00 Acetaminophen (Tylenol Tab) 650 mg Q6H PRN PO PAIN LEVEL 1-3 OR FEVER Last administered on 08/17/16 22:59; Admin Dose 650 MG; Start 08/16/16 at 10:00 Acetaminophen/ Hydrocodone Bitart ([place] (5/325)) 1 tab Q6H PRN PO MODERATE PAIN LEVEL 4-6 Last administered on 08/18/16 14:25; Admin Dose 1 TAB; Start at 10:00 Morphine Sulfate (morphine) 2 mg Q4H PRN IV SEVERE PAIN LEVEL 7-10; Start 08/16 at 10:00 Pantoprazole (Protonix Tab) 40 mg DAILY@06 PO Last administered on 08/23/16 05: 29; Admin Dose 40 MG; Start 08/17/16 at 06:00 Ferrous Sulfate (Ferrous Sulfate (Ec)) 325 mg DAILY PO Last administered on 08/23 08:54; Admin Dose 325 MG; Start 08/17/16 at 09:00 Levetiracetam (Keppra) 2,000 mg Q12H PO Last administered on 08/23/16 21:06; Admin Dose 2,000 MG; Start 08/16/16 at 10:00 Propranolol HCl (Inderal) 10 mg BID PO Last administered on 08/21/16 09:29; Admin Dose 10 MG; Start 08/16/16 at 21:00 Zinc Sulfate 220 mg 220 mg DAILY PO Last administered on 08/23/16 08:55; Admin Dose 220 MG; Start 08/17/16 at 09:00 Metronidazole (Flagyl 500 Mg (Pmx)) 100 ml @ 100 mls/hr Q8 IVPB Last administered on 08/23/16 21:06; Admin Dose 100 MLS/HR; Start 08/16/16 at 14:00 Lorazepam (Ativan) 0.5 mg Q6H PRN PO ANXIETY; Start 08/16/16 at 16:30 Furosemide (Lasix) 20 mg DAILY IV Last administered on 08/20/16 09:34; Admin Dose 20 MG; Start 08/17/16 at 09:00 Vancomycin HCl (Vancomycin Oral Syringe) 250 mg Q6 PO Last administered on 17:31; Admin Dose 250 MG; Start 08/17/16 at 14:30 ELVA TEE MD Aug 24, 2016 00:23
[2016-08-24] MEDS: VANCOMYCIN HCL 250 MG/5ML POSYG PO SCH ×4 (00:33→17:43)
[2016-08-24] MEDS: PANTOPRAZOLE (EC) 40 MG TAB PO SCH (06:13)
[2016-08-24] MEDS: metroNIDAZOLE 500 MG/NS (PMX) 100 ML IVPB SCH (06:13)
[2016-08-24 07:28] VITALS: BP 101/61; RESP 18
[2016-08-24 08:06] LABS: ADD SCAN DIFF NO
[2016-08-24 08:14] LABS: ABNORMAL IP MESSAGE 1; BASOPHILS % 0.4 % (0.0-2.0); EOSINOPHILS # 0.1 10^3/ul (0.0-0.5); EOSINOPHILS % 4.9 % (0.0-7.0); HEMATOCRIT 26.2 % (42.0-52.0); HEMOGLOBIN 8.6 g/dl (14.0-18.0); LYMPHOCYTES # 0.7 10^3/ul (0.8-2.9); LYMPHOCYTES % 22.9 % (15.0-51.0); MEAN CORPUSCULAR HEMOGLOBIN 29.8 pg (29.0-33.0); MEAN CORPUSCULAR HGB CONC 32.8 g/dl (32.0-37.0); MEAN CORPUSCULAR VOLUME 90.7 fl (82.0-101.0); MEAN PLATELET VOLUME 8.9 fl (7.4-10.4); MONOCYTE # 0.5 10^3/ul (0.3-0.9); MONOCYTES % 16.9 % (0.0-11.0); NEUTROPHIL # 1.5 10^3/ul (1.6-7.5); PLATELET COUNT 72 10^3/UL (140-415); RED BLOOD COUNT 2.89 10^6/ul (4.70-6.10); RED CELL DISTRIBUTION WIDTH 16.8 % (11.5-14.5); WHITE BLOOD COUNT 2.8 10^3/ul (4.8-10.8)
[2016-08-24 08:37] LABS: CALCIUM 8.1 mg/dl (8.4-10.2); CREATININE 0.73 mg/dl (0.61-1.24); POTASSIUM 3.6 mmol/L (3.5-5.1)
[2016-08-24] MEDS: ZINC SULFATE 220 MG CAP PO SCH (08:48)
[2016-08-24] MEDS: FERROUS SULFATE (EC) 325 MG TAB PO SCH (08:48)
[2016-08-24] MEDS: LEVETIRACETAM 500 MG TAB PO SCH ×2 (08:48→21:30)
[2016-08-24] MEDS: FUROSEMIDE 20 MG INJ IV SCH (08:48)
[2016-08-24] MEDS: PROPRANOLOL 10 MG TAB PO SCH ×2 (08:49→21:00)
--- NOTE | 2016-08-24 10:03 | CONS ---
Date/Time of Note Date/Time of Note DATE: 08/24/16 TIME: 10:01 Assessment/Plan Assessment/Plan Chief Complaint/Hosp Course Subjective: No acute events, no fevers, looks comfortable Antimicrobials: Oral vancomycin Physical examination: Morbidly obese well-developed middle-aged man who is alert in no distress HEENT within normal limits Neck is supple lymph nodes nonpalpable Chest decreased breath sounds at the bases Heart without murmur gallop Abdomen is soft, obese, with a fluid wave. Extremities: 1-2+ edema with stasis changes Neurological: No focal neurological abnormalities Assessment: 1. C. difficile colitis===> treated 2. Polymicrobial UTI 3. VRE stool colonization 4. Morbid obesity 5. Seizure disorder Plan: Patient remains stable, diarrhea resolving, continue oral Vanco for 7 more days, follow recommendations of consultants [facility] staff Problems: Consultation Date/Type/Reason Admit Date/Time Aug 16, 2016 at 05:49 Initial Consult Date 08/16/16 Type of Consultation: ID Referring Provider: MALU CORONADO FRENCH PASTRY COOK Exam/Review of Systems Vital Signs Vitals Vital Signs Date Time Temp Pulse Resp B/P Pulse Ox O2 Delivery O2 Flow Rate FiO2 08/24/16 07:28 98.2 86 18 101/61 98 08/20/16 18:33 Room Air Intake and Output 08/23/16 08/23/16 08/24/16 15:00 23:00 07:00 Intake Total 1510 ml 600 ml Balance 1510 ml 600 ml Results Result Diagram: 08/24/16 0750 08/24/16 0750 Results 24 hrs Laboratory Tests Test 08/24/16 07:50 White Blood Count 2.8 L Red Blood Count 2.89 L Hemoglobin 8.6 L Hematocrit 26.2 L Mean Corpuscular Volume 90.7 Mean Corpuscular Hemoglobin 29.8 Mean Corpuscular Hemoglobin Concent 32.8 Red Cell Distribution Width 16.8 H Platelet Count 72 L Mean Platelet Volume 8.9 Neutrophils % 51.0 Lymphocytes % 22.9 Monocytes % 16.9 H Eosinophils % 4.9 Basophils % 0.4 Nucleated Red Blood Cells % 0.0 Neutrophils # 1.5 L Lymphocytes # 0.7 L Monocytes # 0.5 Eosinophils # 0.1 Basophils # 0.0 Nucleated Red Blood Cells # 0.0 Sodium Level 138 Potassium Level 3.6 Chloride Level 106 Carbon Dioxide Level 18 L Anion Gap 18 #H Blood Urea Nitrogen 5 L Creatinine 0.73 Glucose Level 78 Calcium Level 8.1 L Medications Medications Current Medications Ondansetron HCl (Zofran Inj) 4 mg Q6H PRN IV NAUSEA AND/OR VOMITING Last administered on 08/22/16 10:50; Admin Dose 4 MG; Start 08/16/16 at 10:00 Acetaminophen (Tylenol Tab) 650 mg Q6H PRN PO PAIN LEVEL 1-3 OR FEVER Last administered on 08/17/16 22:59; Admin Dose 650 MG; Start 08/16/16 at 10:00 Acetaminophen/ Hydrocodone Bitart ([place] (5/325)) 1 tab Q6H PRN PO MODERATE PAIN LEVEL 4-6 Last administered on 08/18/16 14:25; Admin Dose 1 TAB; Start at 10:00 Morphine Sulfate (morphine) 2 mg Q4H PRN IV SEVERE PAIN LEVEL 7-10; Start 08/16 at 10:00 Pantoprazole (Protonix Tab) 40 mg DAILY@06 PO Last administered on 08/24/16 06: 13; Admin Dose 40 MG; Start 08/17/16 at 06:00 Ferrous Sulfate (Ferrous Sulfate (Ec)) 325 mg DAILY PO Last administered on 08/24 08:48; Admin Dose 325 MG; Start 08/17/16 at 09:00 Levetiracetam (Keppra) 2,000 mg Q12H PO Last administered on 08/24/16 08:48; Admin Dose 2,000 MG; Start 08/16/16 at 10:00 Propranolol HCl (Inderal) 10 mg BID PO Last administered on 08/21/16 09:29; Admin Dose 10 MG; Start 08/16/16 at 21:00 Zinc Sulfate 220 mg 220 mg DAILY PO Last administered on 08/24/16 08:48; Admin Dose 220 MG; Start 08/17/16 at 09:00 Metronidazole (Flagyl 500 Mg (Pmx)) 100 ml @ 100 mls/hr Q8 IVPB Last administered on 08/24/16 06:13; Admin Dose 100 MLS/HR; Start 08/16/16 at 14:00 Lorazepam (Ativan) 0.5 mg Q6H PRN PO ANXIETY; Start 08/16/16 at 16:30 Furosemide (Lasix) 20 mg DAILY IV Last administered on 08/24/16 08:48; Admin Dose 20 MG; Start 08/17/16 at 09:00 Vancomycin HCl (Vancomycin Oral Syringe) 250 mg Q6 PO Last administered on 06:13; Admin Dose 250 MG; Start 08/17/16 at 14:30 REBEKAH JERNIGAN NP Aug 24, 2016 10:03
--- NOTE | 2016-08-24 10:46 | PN ---
Date/Time of Note Date/Time of Note DATE: 08/24/16 TIME: 10:41 Assessment/Plan VTE Prophylaxis VTE Prophylaxis Intervention: SCD's Lines/Catheters IV C[facility]ter Type [facility]from [facility] [place] [facility] Urinary Cath still in place: No Assessment/Plan Chief Complaint/Hosp Course A/P: 56-year-old male with past medical history of liver cirrhosis of unclear etiology, leukemia status post radiation and chemotherapy in the past, seizure disorder, and morbid obesity who p/w sepsis secondary to underlying urinary tract infection and C. difficile colitis. 1. Sepsis secondary to underlying urinary tract infection and C. difficile colitis. No fever, no leukocytosis - improving. - Continue antimicrobials per ID rec's - needs 7 more days of PO Vanco. The patient has no evidence of any septic shock. - f/u ID rec's - continue PT 2. Liver cirrhosis. The patient's ammonia level is within normal limits. The patient's chest x-ray showing no evidence of any pulmonary vascular congestion. - monitor 3. Abdominal pain. Abdominal CT scan initially showing moderate amount of water density free intraperitoneal fluid. The CT also revealed diverticuli within the descending colon and sigmoid colon and there is stranding within the fat along the descending colon raising the suspicion of diverticulitis. CT also revealed extensive cholelithiasis with gallbladder mildly distended with no gallbladder wall thickening or bile duct dilatation. - monitor, patient being followed by gastroenterology. 4. Seizure disorder. The patient's antiseizure medications will be continued. 5. Normocytic normochromic anemia. Most probably anemia of chronic disease. Iron panel showing iron deficiency. Patient already on iron supplements. 6. Thrombocytopenia. Most probably secondary to underlying liver cirrhosis. No bleeding. - Will monitor the H&H closely. Will avoid any anticoagulants. 7. C. difficile colitis. - Continue antimicrobials - PO Vanco x 7 more days - Enteric precautions. - f/u ID rec's 8. Urinary tract infection. - Continue antibiotics. - Infectious diseases on the case. 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 Remote history of leukemia. Being followed by hematology/oncology\ - BM biopsy suggested, but pt refusing this when mentioned to him today. 11. Fluids, electrolytes, and nutrition. The patient was started on clear liquids as per gastroenterology - advance to soft today. 12. DVT prophylaxis. Bilateral sequential compression devices. 13. Gastrointestinal prophylaxis. Proton pump inhibitors. Plan. D/C home in 24 hrs if NH4 levels nL, and CM has set up HH needs. Problems: Subjective 24 Hr Interval Summary Free Text/Dictation Pt initially refused condom cath placement, now agreeing to it. Still refusing BM biopsy. Exam/Review of Systems Vital Signs Vitals Vital Signs Date Time Temp Pulse Resp B/P Pulse Ox O2 Delivery O2 Flow Rate FiO2 08/24/16 07:28 98.2 86 18 101/61 98 08/20/16 18:33 Room Air Intake and Output 08/23/16 08/23/16 08/24/16 15:00 23:00 07:00 Intake Total 1510 ml 600 ml Balance 1510 ml 600 ml Exam General: Morbidly obese 56 year-old male lying in bed in no apparent distress. HEENT: Normocephalic, atraumatic. Eyes: Anicteric sclerae, conjunctivae clear. ENT: Nasal septum midline, oral mucosa moist. Neck supple, no JVD noticed. Respiratory: Bilaterally clear breath sounds. No use of accessory muscles of respiration. No adventitious breath sounds. Cardiovascular: S1, S2 heard. Regular rate and rhythm. Abdomen: less distended. Bowel sounds positive in all 4 quadrants, less left lower quadrant tenderness. Extremities: No cyanosis, no clubbing. Bilateral lower extremity 2+ pitting edema. Neurologic: Cranial nerves II through XII grossly intact. The patient is awake, alert, and oriented. Skin: Normal skin turgor. No skin rashes. Results Result Diagram: 08/24/16 0750 08/24/16 0750 Results 24 hrs Laboratory Tests Test 08/24/16 07:50 White Blood Count 2.8 L Red Blood Count 2.89 L Hemoglobin 8.6 L Hematocrit 26.2 L Mean Corpuscular Volume 90.7 Mean Corpuscular Hemoglobin 29.8 Mean Corpuscular Hemoglobin Concent 32.8 Red Cell Distribution Width 16.8 H Platelet Count 72 L Mean Platelet Volume 8.9 Neutrophils % 51.0 Lymphocytes % 22.9 Monocytes % 16.9 H Eosinophils % 4.9 Basophils % 0.4 Nucleated Red Blood Cells % 0.0 Neutrophils # 1.5 L Lymphocytes # 0.7 L Monocytes # 0.5 Eosinophils # 0.1 Basophils # 0.0 Nucleated Red Blood Cells # 0.0 Sodium Level 138 Potassium Level 3.6 Chloride Level 106 Carbon Dioxide Level 18 L Anion Gap 18 #H Blood Urea Nitrogen 5 L Creatinine 0.73 Glucose Level 78 Calcium Level 8.1 L Magnesium Level 1.8 Medications Medications Current Medications Ondansetron HCl (Zofran Inj) 4 mg Q6H PRN IV NAUSEA AND/OR VOMITING Last administered on 08/22/16 10:50; Admin Dose 4 MG; Start 08/16/16 at 10:00 Acetaminophen (Tylenol Tab) 650 mg Q6H PRN PO PAIN LEVEL 1-3 OR FEVER Last administered on 08/17/16 22:59; Admin Dose 650 MG; Start 08/16/16 at 10:00 Acetaminophen/ Hydrocodone Bitart ([place] (5/325)) 1 tab Q6H PRN PO MODERATE PAIN LEVEL 4-6 Last administered on 08/18/16 14:25; Admin Dose 1 TAB; Start at 10:00 Morphine Sulfate (morphine) 2 mg Q4H PRN IV SEVERE PAIN LEVEL 7-10; Start 08/16 at 10:00 Pantoprazole (Protonix Tab) 40 mg DAILY@06 PO Last administered on 08/24/16 06: 13; Admin Dose 40 MG; Start 08/17/16 at 06:00 Ferrous Sulfate (Ferrous Sulfate (Ec)) 325 mg DAILY PO Last administered on 08/24 08:48; Admin Dose 325 MG; Start 08/17/16 at 09:00 Levetiracetam (Keppra) 2,000 mg Q12H PO Last administered on 08/24/16 08:48; Admin Dose 2,000 MG; Start 08/16/16 at 10:00 Propranolol HCl (Inderal) 10 mg BID PO Last administered on 08/21/16 09:29; Admin Dose 10 MG; Start 08/16/16 at 21:00 Zinc Sulfate 220 mg 220 mg DAILY PO Last administered on 08/24/16 08:48; Admin Dose 220 MG; Start 08/17/16 at 09:00 Metronidazole (Flagyl 500 Mg (Pmx)) 100 ml @ 100 mls/hr Q8 IVPB Last administered on 08/24/16 06:13; Admin Dose 100 MLS/HR; Start 08/16/16 at 14:00 Lorazepam (Ativan) 0.5 mg Q6H PRN PO ANXIETY; Start 08/16/16 at 16:30 Furosemide (Lasix) 20 mg DAILY IV Last administered on 08/24/16 08:48; Admin Dose 20 MG; Start 08/17/16 at 09:00 Vancomycin HCl (Vancomycin Oral Syringe) 250 mg Q6 PO Last administered on 06:13; Admin Dose 250 MG; Start 08/17/16 at 14:30 ADRIANE YE Aug 24, 2016 10:46
--- NOTE | 2016-08-24 11:09 | CONS ---
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 Most probably anemia of chronic disease. Iron panel showing iron deficiency. Patient already on iron supplements. Thrombocytopenia. ? secondary to underlying liver cirrhosis. ? 2 TO SEPSIS DIC- NEG AVOID MYELOSUPPRESSIVE MEDS Will avoid any anticoagulants. Sepsis secondary to underlying urinary tract infection and C. difficile colitis. Continue antimicrobials. The patient has no evidence of any septic shock. Liver cirrhosis. The patient's ammonia level is within normal limits. The patient will be gently diuresed. The patient's chest x-ray showing no evidence of any pulmonary vascular congestion. MILD SPLENOMEGALY- MOST LIKELY 2 TO LIVER CIRRHOSIS Abdominal pain. Abdominal CT scan showing moderate amount of water density free intraperitoneal fluid. The CT also revealed diverticuli within the descending colon and sigmoid colon and there is stranding within the fat along the descending colon raising the suspicion of diverticulitis. CT also revealed extensive cholelithiasis with gallbladder mildly distended with no gallbladder wall thickening or bile duct dilatation. Patient being followed by gastroenterology. Seizure disorder. The patient's antiseizure medications will be continued. C. difficile colitis. Continue antimicrobials. Enteric precautions. Urinary tract infection. Continue antibiotics. Infectious diseases on the case. Fluids, electrolytes, and nutrition. The patient was started on clear liquids as per gastroenterology. DVT prophylaxis. Bilateral sequential compression devices. Gastrointestinal prophylaxis. Proton pump inhibitors. Problems: Consultation Date/Type/Reason Admit Date/Time Aug 16, 2016 at 05:49 Initial Consult Date 08/19/16 Type of Consultation: [facility] Referring Provider: MALU CORONADO NP 24 HR Interval Summary Free Text/Dictation ALL NOTED FLOW- P Exam/Review of Systems Vital Signs Vitals Vital Signs Date Time Temp Pulse Resp B/P Pulse Ox O2 Delivery O2 Flow Rate FiO2 08/24/16 07:28 98.2 86 18 101/61 98 08/20/16 18:33 Room Air Intake and Output 08/23/16 08/23/16 08/24/16 15:00 23:00 07:00 Intake Total 1510 ml 600 ml Balance 1510 ml 600 ml Exam General: Morbidly obese 56 year-old male lying in bed in no apparent distress. HEENT: Normocephalic, atraumatic. Eyes: Anicteric sclerae, conjunctivae clear. ENT: Nasal septum midline, oral mucosa moist. Neck supple, no JVD noticed. Respiratory: Bilaterally clear breath sounds. No use of accessory muscles of respiration. No adventitious breath sounds. Cardiovascular: S1, S2 heard. Regular rate and rhythm. Abdomen: Distended. Bowel sounds positive in all 4 quadrants. Left lower quadrant tenderness. Genitourinary: Deferred. Extremities: No cyanosis, no clubbing. Bilateral lower extremity 2+ pitting edema. Peripheral pulses palpable. Neurologic: Cranial nerves II through XII grossly intact. The patient is awake, alert, and oriented. Skin: Normal skin turgor. No skin rashes. Results Result Diagram: 08/24/16 0750 08/24/16 0750 Results 24 hrs Laboratory Tests Test 08/24/16 07:50 White Blood Count 2.8 L Red Blood Count 2.89 L Hemoglobin 8.6 L Hematocrit 26.2 L Mean Corpuscular Volume 90.7 Mean Corpuscular Hemoglobin 29.8 Mean Corpuscular Hemoglobin Concent 32.8 Red Cell Distribution Width 16.8 H Platelet Count 72 L Mean Platelet Volume 8.9 Neutrophils % 51.0 Lymphocytes % 22.9 Monocytes % 16.9 H Eosinophils % 4.9 Basophils % 0.4 Nucleated Red Blood Cells % 0.0 Neutrophils # 1.5 L Lymphocytes # 0.7 L Monocytes # 0.5 Eosinophils # 0.1 Basophils # 0.0 Nucleated Red Blood Cells # 0.0 Sodium Level 138 Potassium Level 3.6 Chloride Level 106 Carbon Dioxide Level 18 L Anion Gap 18 #H Blood Urea Nitrogen 5 L Creatinine 0.73 Glucose Level 78 Calcium Level 8.1 L Magnesium Level 1.8 Medications Medications Current Medications Ondansetron HCl (Zofran Inj) 4 mg Q6H PRN IV NAUSEA AND/OR VOMITING Last administered on 08/22/16 10:50; Admin Dose 4 MG; Start 08/16/16 at 10:00 Acetaminophen (Tylenol Tab) 650 mg Q6H PRN PO PAIN LEVEL 1-3 OR FEVER Last administered on 08/17/16 22:59; Admin Dose 650 MG; Start 08/16/16 at 10:00 Acetaminophen/ Hydrocodone Bitart ([place] (5/325)) 1 tab Q6H PRN PO MODERATE PAIN LEVEL 4-6 Last administered on 08/18/16 14:25; Admin Dose 1 TAB; Start at 10:00 Morphine Sulfate (morphine) 2 mg Q4H PRN IV SEVERE PAIN LEVEL 7-10; Start 08/16 at 10:00 Pantoprazole (Protonix Tab) 40 mg DAILY@06 PO Last administered on 08/24/16 06: 13; Admin Dose 40 MG; Start 08/17/16 at 06:00 Ferrous Sulfate (Ferrous Sulfate (Ec)) 325 mg DAILY PO Last administered on 08/24 08:48; Admin Dose 325 MG; Start 08/17/16 at 09:00 Levetiracetam (Keppra) 2,000 mg Q12H PO Last administered on 08/24/16 08:48; Admin Dose 2,000 MG; Start 08/16/16 at 10:00 Propranolol HCl (Inderal) 10 mg BID PO Last administered on 08/21/16 09:29; Admin Dose 10 MG; Start 08/16/16 at 21:00 Zinc Sulfate 220 mg 220 mg DAILY PO Last administered on 08/24/16 08:48; Admin Dose 220 MG; Start 08/17/16 at 09:00 Metronidazole (Flagyl 500 Mg (Pmx)) 100 ml @ 100 mls/hr Q8 IVPB Last administered on 08/24/16 06:13; Admin Dose 100 MLS/HR; Start 08/16/16 at 14:00; Status Future Hold Lorazepam (Ativan) 0.5 mg Q6H PRN PO ANXIETY; Start 08/16/16 at 16:30 Furosemide (Lasix) 20 mg DAILY IV Last administered on 08/24/16 08:48; Admin Dose 20 MG; Start 08/17/16 at 09:00 Vancomycin HCl (Vancomycin Oral Syringe) 250 mg Q6 PO Last administered on 06:13; Admin Dose 250 MG; Start 08/17/16 at 14:30 ELVA TEE MD Aug 24, 2016 11:08
[2016-08-24 20:16] VITALS: BP 90/51; RESP 18
[2016-08-24 22:20] LABS: ALBUMIN 2.1 g/dL (3.8-4.8)
[2016-08-25] MEDS: VANCOMYCIN HCL 250 MG/5ML POSYG PO SCH ×4 (00:04→18:42)
[2016-08-25] MEDS: PANTOPRAZOLE (EC) 40 MG TAB PO SCH (05:52)
[2016-08-25 07:38] VITALS: BP 90/55; RESP 19
[2016-08-25 07:43] LABS: ADD SCAN DIFF NO
[2016-08-25 07:56] LABS: ABNORMAL IP MESSAGE 1; BASOPHILS % 0.6 % (0.0-2.0); EOSINOPHILS # 0.1 10^3/ul (0.0-0.5); EOSINOPHILS % 4.5 % (0.0-7.0); HEMATOCRIT 26.8 % (42.0-52.0); HEMOGLOBIN 8.8 g/dl (14.0-18.0); LYMPHOCYTES # 0.7 10^3/ul (0.8-2.9); LYMPHOCYTES % 22.8 % (15.0-51.0); MEAN CORPUSCULAR HEMOGLOBIN 29.5 pg (29.0-33.0); MEAN CORPUSCULAR HGB CONC 32.8 g/dl (32.0-37.0); MEAN CORPUSCULAR VOLUME 89.9 fl (82.0-101.0); MEAN PLATELET VOLUME 9.1 fl (7.4-10.4); MONOCYTE # 0.5 10^3/ul (0.3-0.9); MONOCYTES % 16.4 % (0.0-11.0); NEUTROPHIL # 1.6 10^3/ul (1.6-7.5); NEUTROPHILS % 52.2 % (39.0-77.0); RED BLOOD COUNT 2.98 10^6/ul (4.70-6.10); WHITE BLOOD COUNT 3.1 10^3/ul (4.8-10.8)
[2016-08-25 08:05] LABS: PLATELET COUNT 63 10^3/UL (140-415)
[2016-08-25 08:16] LABS: CALCIUM 8.2 mg/dl (8.4-10.2); CREATININE 0.7 mg/dl (0.61-1.24); POTASSIUM 3.4 mmol/L (3.5-5.1)
[2016-08-25] MEDS: FUROSEMIDE 20 MG INJ IV SCH (09:00)
[2016-08-25] MEDS: PROPRANOLOL 10 MG TAB PO SCH ×2 (09:00→21:00)
[2016-08-25] MEDS: FERROUS SULFATE (EC) 325 MG TAB PO SCH (09:13)
[2016-08-25] MEDS: ZINC SULFATE 220 MG CAP PO SCH (09:13)
[2016-08-25] MEDS: LEVETIRACETAM 500 MG TAB PO SCH ×2 (09:14→21:15)
[2016-08-25] MEDS ORDERED: POTASSIUM CHLORIDE (SR) 20 MEQ TAB PO STA (10:04)
--- NOTE | 2016-08-25 10:10 | PDOCDIS ---
Discharge Instructions CONDITION Patient Condition: Stable HOME CARE INSTRUCTIONS: Special Diet: SOFT DIET ACTIVITY: Activity Restrictions: Slowly Increase Activity FOLLOW UP/APPOINTMENTS Follow-up Plan Please take your medications as prescribed, see your doctor in the clinic in 1 week. ADRIANE YE Aug 25, 2016 10:09
[2016-08-25] MEDS ORDERED: Vancomycin Oral Syringe PO (10:11)
--- NOTE | 2016-08-25 10:19 | DS ---
Date/Time of Note Date/Time of Note DATE: 08/25/16 TIME: 10:12 Discharge Summary Admission/Discharge Info Admit Date/Time Aug 16, 2016 at 05:49 Discharge Date/Time Discharge Diagnosis 1. Sepsis secondary to underlying urinary tract infection and C. difficile colitis. 2. Liver cirrhosis. 3. Abdominal pain. Abdominal CT scan initially showing moderate amount of water density free intraperitoneal fluid. The CT also revealed diverticuli within the descending colon and sigmoid colon and there is stranding within the fat along the descending colon raising the suspicion of diverticulitis. CT also revealed extensive cholelithiasis with gallbladder mildly distended with no gallbladder wall thickening or bile duct dilatation. 4. Seizure disorder. 5. Normocytic normochromic anemia. Most probably anemia of chronic disease. Iron panel showing iron deficiency. Patient already on iron supplements. 6. Thrombocytopenia. Most probably secondary to underlying liver cirrhosis. No bleeding. 7. C. difficile colitis. 8. Urinary tract infection. 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 Patient verbalized that he has been having increased abdominal distention and abdominal pain for the past few days. The patient also verbalized multiple episodes of nonbilious nonbloody vomiting. The patient apparently was treated for C. difficile colitis with oral vancomycin. The patient continues to have diarrhea. Patient denied any melena or hematochezia. Patient denied any hematemesis. The patient has prior history of esophageal varices. The patient denied any prior paracentesis. In the emergency room, the patient was noticed to have a fever of 100.8. Patient had no underlying leukocytosis. The patient was treated with IV Flagyl and IV aztreonam for possible underlying spontaneous bacterial peritonitis. However, patient was found with Sepsis secondary to underlying urinary tract infection and C. difficile colitis. Also treated for VRE colonization of the stool with antibiotics. Patient also suffered from abdominal pain. The abdominal CT scan initially showing moderate amount of water density free intraperitoneal fluid. The CT also revealed diverticuli within the descending colon and sigmoid colon and there is stranding within the fat along the descending colon raising the suspicion of diverticulitis. CT also revealed extensive cholelithiasis with gallbladder mildly distended with no gallbladder wall thickening or bile duct dilatation. Patient was monitored, \ followed by gastroenterology. Patient was managed for these infections by infectious disease team, he was also seen by hematology oncology team for remote history of leukemia. - BM biopsy suggested, but pt refusing this when mentioned to him. Patient was continued on lactulose, antibiotics, over the course of his hospital stay his symptoms slowly improved, he was able to ambulate with assistance of physical therapy, tolerate p.o. diet, and we will be discharged home today in improved condition with home health needs. He will need to follow-up with primary care doctor in the clinic in the next 1 week. He will need to complete 6 more days of p.o. vancomycin to complete the treatment of his C. difficile colitis. He has completed the other antibiotics for his other infections already. Home Meds Active Scripts [Vancomycin Oral Syringe] 50 MG/ML SOLN No Conflict Check, 250 MG PO Q6 for 6 Days Prov:ADRIANE YE 08/25/16 Lactulose* (Lactulose*) 10 Gm/15 Ml Solution, 30 GM PO Q6 for 30 Days, ML Prov:FIGUEROA BETH MD 08/04/16 Reported Medications Ferrous Sulfate* (Ferrous Sulfate*) 325 Mg Tabec, 325 MG PO DAILY, TAB 08/03/16 Propranolol Hcl* (Propranolol Hcl*) 10 Mg Tablet, 10 MG PO BID, TAB 08/03/16 Levetiracetam* (Levetiracetam*) 500 Mg Tablet, 2000 MG PO Q12H, TAB 08/03/16 Zinc Sulfate* (Zinc Sulfate*) 220 Mg Cap, 220 MG PO DAILY, CAP 08/03/16 Primary Care Provider [facility] Pending Labs Laboratory Tests Test 08/24/16 12:41 08/25/16 07:04 Ammonia 26umol/l (9-30) White Blood Count 3.110^3/ul (4.8-10.8) Red Blood Count 2.9810^6/ul (4.70-6.10) Hemoglobin 8.8g/dl (14.0-18.0) Hematocrit 26.8% (42.0-52.0) Mean Corpuscular Volume 89.9fl (82.0-101.0) Mean Corpuscular Hemoglobin 29.5pg (29.0-33.0) Mean Corpuscular Hemoglobin Concent 32.8g/dl (32.0-37.0) Red Cell Distribution Width 17.0% (11.5-14.5) Platelet Count 6310^3/UL (140-415) Mean Platelet Volume 9.1fl (7.4-10.4) Neutrophils % 52.2% (39.0-77.0) Lymphocytes % 22.8% (15.0-51.0) Monocytes % 16.4% (0.0-11.0) Eosinophils % 4.5% (0.0-7.0) Basophils % 0.6% (0.0-2.0) Nucleated Red Blood Cells % 0.0/100WBC (0.0-0.0) Neutrophils # 1.610^3/ul (1.6-7.5) Lymphocytes # 0.710^3/ul (0.8-2.9) Monocytes # 0.510^3/ul (0.3-0.9) Eosinophils # 0.110^3/ul (0.0-0.5) Basophils # 0.010^3/ul (0.0-0.1) Nucleated Red Blood Cells # 0.010^3/ul (0.0-0.0) Sodium Level 138mmol/L (135-144) Potassium Level 3.4mmol/L (3.5-5.1) Chloride Level 106mmol/L (97-110) Carbon Dioxide Level 22mmol/L (21-31) Anion Gap 13 (8-16) Blood Urea Nitrogen 5mg/dl (7-20) Creatinine 0.70mg/dl (0.61-1.24) Glucose Level 92mg/dl (70-220) Calcium Level 8.2mg/dl (8.4-10.2) ADRIANE YE Aug 25, 2016 10:19
--- NOTE | 2016-08-25 11:28 | CONS ---
Date/Time of Note Date/Time of Note DATE: 08/25/16 TIME: 11:25 Assessment/Plan Assessment/Plan Chief Complaint/Hosp Course Subjective: No acute events, no fevers, looks comfortable Antimicrobials: Oral vancomycin Physical examination: Morbidly obese well-developed middle-aged man who is alert in no distress HEENT within normal limits Neck is supple lymph nodes nonpalpable Chest decreased breath sounds at the bases Heart without murmur gallop Abdomen is soft, obese, with a fluid wave. Extremities: 1-2+ edema with stasis changes Neurological: No focal neurological abnormalities Assessment: 1. C. difficile colitis===> treated 2. Polymicrobial UTI 3. VRE stool colonization 4. Morbid obesity 5. Seizure disorder Plan: Patient remains stable, ok dc on Vanco for 7 more days [facility] staff Problems: Consultation Date/Type/Reason Admit Date/Time Aug 16, 2016 at 05:49 Initial Consult Date 08/16/16 Type of Consultation: ID Referring Provider: MALU CORONADO ACCOUNT AUDITOR Exam/Review of Systems Vital Signs Vitals Vital Signs Date Time Temp Pulse Resp B/P Pulse Ox O2 Delivery O2 Flow Rate FiO2 08/25/16 07:38 97.5 90 19 90/55 97 Intake and Output 08/24/16 08/24/16 08/25/16 15:01 23:01 07:01 Intake Total 720 ml Balance 720 ml Results Result Diagram: 08/25/16 0704 08/25/16 0704 Results 24 hrs Laboratory Tests Test 08/24/16 12:41 08/25/16 07:04 Ammonia 26 White Blood Count 3.1 L Red Blood Count 2.98 L Hemoglobin 8.8 L Hematocrit 26.8 L Mean Corpuscular Volume 89.9 Mean Corpuscular Hemoglobin 29.5 Mean Corpuscular Hemoglobin Concent 32.8 Red Cell Distribution Width 17.0 H Platelet Count 63 L Mean Platelet Volume 9.1 Neutrophils % 52.2 Lymphocytes % 22.8 Monocytes % 16.4 H Eosinophils % 4.5 Basophils % 0.6 Nucleated Red Blood Cells % 0.0 Neutrophils # 1.6 Lymphocytes # 0.7 L Monocytes # 0.5 Eosinophils # 0.1 Basophils # 0.0 Nucleated Red Blood Cells # 0.0 Sodium Level 138 Potassium Level 3.4 L Chloride Level 106 Carbon Dioxide Level 22 Anion Gap 13 Blood Urea Nitrogen 5 L Creatinine 0.70 Glucose Level 92 Calcium Level 8.2 L Medications Medications Current Medications Ondansetron HCl (Zofran Inj) 4 mg Q6H PRN IV NAUSEA AND/OR VOMITING Last administered on 08/22/16 10:50; Admin Dose 4 MG; Start 08/16/16 at 10:00 Acetaminophen (Tylenol Tab) 650 mg Q6H PRN PO PAIN LEVEL 1-3 OR FEVER Last administered on 08/17/16 22:59; Admin Dose 650 MG; Start 08/16/16 at 10:00 Acetaminophen/ Hydrocodone Bitart ([place] (5/325)) 1 tab Q6H PRN PO MODERATE PAIN LEVEL 4-6 Last administered on 08/18/16 14:25; Admin Dose 1 TAB; Start at 10:00 Morphine Sulfate (morphine) 2 mg Q4H PRN IV SEVERE PAIN LEVEL 7-10; Start 08/16 at 10:00 Pantoprazole (Protonix Tab) 40 mg DAILY@06 PO Last administered on 08/25/16 05: 52; Admin Dose 40 MG; Start 08/17/16 at 06:00 Ferrous Sulfate (Ferrous Sulfate (Ec)) 325 mg DAILY PO Last administered on 08/25 09:13; Admin Dose 325 MG; Start 08/17/16 at 09:00 Levetiracetam (Keppra) 2,000 mg Q12H PO Last administered on 08/25/16 09:14; Admin Dose 2,000 MG; Start 08/16/16 at 10:00 Propranolol HCl (Inderal) 10 mg BID PO Last administered on 08/21/16 09:29; Admin Dose 10 MG; Start 08/16/16 at 21:00 Zinc Sulfate 220 mg 220 mg DAILY PO Last administered on 08/25/16 09:13; Admin Dose 220 MG; Start 08/17/16 at 09:00 Metronidazole (Flagyl 500 Mg (Pmx)) 100 ml @ 100 mls/hr Q8 IVPB Last administered on 08/24/16 06:13; Admin Dose 100 MLS/HR; Start 08/16/16 at 14:00; Status Future Hold Lorazepam (Ativan) 0.5 mg Q6H PRN PO ANXIETY; Start 08/16/16 at 16:30 Furosemide (Lasix) 20 mg DAILY IV Last administered on 08/24/16 08:48; Admin Dose 20 MG; Start 08/17/16 at 09:00 Vancomycin HCl (Vancomycin Oral Syringe) 250 mg Q6 PO Last administered on 05:52; Admin Dose 250 MG; Start 08/17/16 at 14:30 REBEKAH JERNIGAN NP Aug 25, 2016 11:28
[2016-08-25 20:00] VITALS: BP 98/53; RESP 18
--- NOTE | 2016-08-25 23:12 | CONS ---
Date/Time of Note Date/Time of Note DATE: 08/25/16 TIME: 23:09 Assessment/Plan Assessment/Plan Chief Complaint/Hosp Course 56 YR MALE WITH HX AML- 32 YR AGO PANCYTOPENIA UNKNOWN RECENT BASELINE SMEAR- NEG FOR BLASTS BIOCHEM W-UP- P FLOW- SMALL AMOUNT CD + CELLS, C B MONOCLONAL SINCE FLOW IS NON CONCLUSIVE WILL PROCEED WITH BMBX IF PT AGREES NONCOMPLIANCE WITH MEDICAL CARE PT DID NOT HAVE MED CARE FOR MANY YEARS Normocytic normochromic anemia. Most probably anemia of chronic disease. Iron panel showing iron deficiency. Patient already on iron supplements. Thrombocytopenia. ? secondary to underlying liver cirrhosis. ? 2 TO SEPSIS DIC- NEG AVOID MYELOSUPPRESSIVE MEDS Will avoid any anticoagulants. Sepsis secondary to underlying urinary tract infection and C. difficile colitis. Continue antimicrobials. The patient has no evidence of any septic shock. Liver cirrhosis. The patient's ammonia level is within normal limits. The patient will be gently diuresed. The patient's chest x-ray showing no evidence of any pulmonary vascular congestion. MILD SPLENOMEGALY- MOST LIKELY 2 TO LIVER CIRRHOSIS Abdominal pain. Abdominal CT scan showing moderate amount of water density free intraperitoneal fluid. The CT also revealed diverticuli within the descending colon and sigmoid colon and there is stranding within the fat along the descending colon raising the suspicion of diverticulitis. CT also revealed extensive cholelithiasis with gallbladder mildly distended with no gallbladder wall thickening or bile duct dilatation. Patient being followed by gastroenterology. Seizure disorder. The patient's antiseizure medications will be continued. C. difficile colitis. Continue antimicrobials. Enteric precautions. Urinary tract infection. Continue antibiotics. Infectious diseases on the case. Fluids, electrolytes, and nutrition. The patient was started on clear liquids as per gastroenterology. DVT prophylaxis. Bilateral sequential compression devices. Gastrointestinal prophylaxis. Proton pump inhibitors. Problems: Consultation Date/Type/Reason Admit Date/Time Aug 16, 2016 at 05:49 Initial Consult Date 08/19/16 Type of Consultation: [facility] Referring Provider: MALU CORONADO NP 24 HR Interval Summary Free Text/Dictation ALL NOTED Exam/Review of Systems Vital Signs Vitals Vital Signs Date Time Temp Pulse Resp B/P Pulse Ox O2 Delivery O2 Flow Rate FiO2 08/25/16 20:00 97.8 85 18 98/53 97 Intake and Output 08/24/16 08/24/16 08/25/16 15:00 23:00 07:00 Intake Total 100 ml 720 ml Balance 100 ml 720 ml Exam General: Morbidly obese 56 year-old male lying in bed in no apparent distress. HEENT: Normocephalic, atraumatic. Eyes: Anicteric sclerae, conjunctivae clear. ENT: Nasal septum midline, oral mucosa moist. Neck supple, no JVD noticed. Respiratory: Bilaterally clear breath sounds. No use of accessory muscles of respiration. No adventitious breath sounds. Cardiovascular: S1, S2 heard. Regular rate and rhythm. Abdomen: Distended. Bowel sounds positive in all 4 quadrants. Left lower quadrant tenderness. Genitourinary: Deferred. Extremities: No cyanosis, no clubbing. Bilateral lower extremity 2+ pitting edema. Peripheral pulses palpable. Neurologic: Cranial nerves II through XII grossly intact. The patient is awake, alert, and oriented. Skin: Normal skin turgor. No skin rashes. Results Result Diagram: 08/25/16 0704 08/25/16 0704 Results 24 hrs Laboratory Tests Test 08/25/16 07:04 White Blood Count 3.1 L Red Blood Count 2.98 L Hemoglobin 8.8 L Hematocrit 26.8 L Mean Corpuscular Volume 89.9 Mean Corpuscular Hemoglobin 29.5 Mean Corpuscular Hemoglobin Concent 32.8 Red Cell Distribution Width 17.0 H Platelet Count 63 L Mean Platelet Volume 9.1 Neutrophils % 52.2 Lymphocytes % 22.8 Monocytes % 16.4 H Eosinophils % 4.5 Basophils % 0.6 Nucleated Red Blood Cells % 0.0 Neutrophils # 1.6 Lymphocytes # 0.7 L Monocytes # 0.5 Eosinophils # 0.1 Basophils # 0.0 Nucleated Red Blood Cells # 0.0 Sodium Level 138 Potassium Level 3.4 L Chloride Level 106 Carbon Dioxide Level 22 Anion Gap 13 Blood Urea Nitrogen 5 L Creatinine 0.70 Glucose Level 92 Calcium Level 8.2 L Medications Medications Current Medications Ondansetron HCl (Zofran Inj) 4 mg Q6H PRN IV NAUSEA AND/OR VOMITING Last administered on 08/22/16 10:50; Admin Dose 4 MG; Start 08/16/16 at 10:00 Acetaminophen (Tylenol Tab) 650 mg Q6H PRN PO PAIN LEVEL 1-3 OR FEVER Last administered on 08/17/16 22:59; Admin Dose 650 MG; Start 08/16/16 at 10:00 Acetaminophen/ Hydrocodone Bitart ([place] (5/325)) 1 tab Q6H PRN PO MODERATE PAIN LEVEL 4-6 Last administered on 08/18/16 14:25; Admin Dose 1 TAB; Start at 10:00 Morphine Sulfate (morphine) 2 mg Q4H PRN IV SEVERE PAIN LEVEL 7-10; Start 08/16 at 10:00 Pantoprazole (Protonix Tab) 40 mg DAILY@06 PO Last administered on 08/25/16 05: 52; Admin Dose 40 MG; Start 08/17/16 at 06:00 Ferrous Sulfate (Ferrous Sulfate (Ec)) 325 mg DAILY PO Last administered on 08/25 09:13; Admin Dose 325 MG; Start 08/17/16 at 09:00 Levetiracetam (Keppra) 2,000 mg Q12H PO Last administered on 08/25/16 21:15; Admin Dose 2,000 MG; Start 08/16/16 at 10:00 Propranolol HCl (Inderal) 10 mg BID PO Last administered on 08/21/16 09:29; Admin Dose 10 MG; Start 08/16/16 at 21:00 Zinc Sulfate 220 mg 220 mg DAILY PO Last administered on 08/25/16 09:13; Admin Dose 220 MG; Start 08/17/16 at 09:00 Metronidazole (Flagyl 500 Mg (Pmx)) 100 ml @ 100 mls/hr Q8 IVPB Last administered on 08/24/16 06:13; Admin Dose 100 MLS/HR; Start 08/16/16 at 14:00; Status Future Hold Lorazepam (Ativan) 0.5 mg Q6H PRN PO ANXIETY; Start 08/16/16 at 16:30 Furosemide (Lasix) 20 mg DAILY IV Last administered on 08/24/16 08:48; Admin Dose 20 MG; Start 08/17/16 at 09:00 Vancomycin HCl (Vancomycin Oral Syringe) 250 mg Q6 PO Last administered on 18:42; Admin Dose 250 MG; Start 08/17/16 at 14:30 ELVA TEE MD Aug 25, 2016 23:12
[2016-08-26] MEDS: VANCOMYCIN HCL 250 MG/5ML POSYG PO SCH ×4 (00:18→17:55)
[2016-08-26] MEDS: PANTOPRAZOLE (EC) 40 MG TAB PO SCH (05:36)
[2016-08-26 07:42] LABS: ADD SCAN DIFF NO
[2016-08-26 07:49] LABS: ABNORMAL IP MESSAGE 1; BASOPHILS % 0.8 % (0.0-2.0); EOSINOPHILS # 0.1 10^3/ul (0.0-0.5); EOSINOPHILS % 3.4 % (0.0-7.0); HEMATOCRIT 26.1 % (42.0-52.0); HEMOGLOBIN 8.9 g/dl (14.0-18.0); LYMPHOCYTES # 0.7 10^3/ul (0.8-2.9); LYMPHOCYTES % 19.6 % (15.0-51.0); MEAN CORPUSCULAR HEMOGLOBIN 30.7 pg (29.0-33.0); MEAN CORPUSCULAR HGB CONC 34.1 g/dl (32.0-37.0); MONOCYTE # 0.6 10^3/ul (0.3-0.9); MONOCYTES % 15.1 % (0.0-11.0); NEUTROPHIL # 2.3 10^3/ul (1.6-7.5); NEUTROPHILS % 59.5 % (39.0-77.0); RED CELL DISTRIBUTION WIDTH 17.1 % (11.5-14.5); WHITE BLOOD COUNT 3.8 10^3/ul (4.8-10.8)
[2016-08-26 08:14] VITALS: BP 96/54; RESP 18
[2016-08-26 08:22] LABS: CALCIUM 8.1 mg/dl (8.4-10.2); CREATININE 0.7 mg/dl (0.61-1.24); PLATELET COUNT 65 10^3/UL (140-415); POTASSIUM 3.7 mmol/L (3.5-5.1)
[2016-08-26] MEDS: PROPRANOLOL 10 MG TAB PO SCH (09:00)
[2016-08-26] MEDS: FUROSEMIDE 20 MG INJ IV SCH (09:00)
[2016-08-26] MEDS: FERROUS SULFATE (EC) 325 MG TAB PO SCH (09:27)
[2016-08-26] MEDS: ZINC SULFATE 220 MG CAP PO SCH (09:27)
[2016-08-26] MEDS: LEVETIRACETAM 500 MG TAB PO SCH (09:27)
--- NOTE | 2016-08-26 09:54 | DS ---
Date/Time of Note Date/Time of Note DATE: 08/26/16 TIME: 09:52 Discharge Summary Admission/Discharge Info Admit Date/Time Aug 16, 2016 at 05:49 Discharge Date/Time Discharge Diagnosis 1. Sepsis secondary to underlying urinary tract infection and C. difficile colitis. 2. Liver cirrhosis. 3. Abdominal pain. Abdominal CT scan initially showing moderate amount of water density free intraperitoneal fluid. The CT also revealed diverticuli within the descending colon and sigmoid colon and there is stranding within the fat along the descending colon raising the suspicion of diverticulitis. CT also revealed extensive cholelithiasis with gallbladder mildly distended with no gallbladder wall thickening or bile duct dilatation. 4. Seizure disorder. 5. Normocytic normochromic anemia. Most probably anemia of chronic disease. Iron panel showing iron deficiency. Patient already on iron supplements. 6. Thrombocytopenia. Most probably secondary to underlying liver cirrhosis. No bleeding. 7. C. difficile colitis. 8. Urinary tract infection. 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 Patient verbalized that he has been having increased abdominal distention and abdominal pain for the past few days. The patient also verbalized multiple episodes of nonbilious nonbloody vomiting. The patient apparently was treated for C. difficile colitis with oral vancomycin. The patient continues to have diarrhea. Patient denied any melena or hematochezia. Patient denied any hematemesis. The patient has prior history of esophageal varices. The patient denied any prior paracentesis. In the emergency room, the patient was noticed to have a fever of 100.8. Patient had no underlying leukocytosis. The patient was treated with IV Flagyl and IV aztreonam for possible underlying spontaneous bacterial peritonitis. However, patient was found with Sepsis secondary to underlying urinary tract infection and C. difficile colitis. Also treated for VRE colonization of the stool with antibiotics. Patient also suffered from abdominal pain. The abdominal CT scan initially showing moderate amount of water density free intraperitoneal fluid. The CT also revealed diverticuli within the descending colon and sigmoid colon and there is stranding within the fat along the descending colon raising the suspicion of diverticulitis. CT also revealed extensive cholelithiasis with gallbladder mildly distended with no gallbladder wall thickening or bile duct dilatation. Patient was monitored, \ followed by gastroenterology. Patient was managed for these infections by infectious disease team, he was also seen by hematology oncology team for remote history of leukemia. - BM biopsy suggested, but pt refusing this when mentioned to him. Patient was continued on lactulose, antibiotics, over the course of his hospital stay his symptoms slowly improved, he was able to ambulate with assistance of physical therapy, tolerate p.o. diet, and we will be discharged home today in improved condition with home health needs. He will need to follow-up with primary care doctor in the clinic in the next 1 week. He will need to complete 6 more days of p.o. vancomycin to complete the treatment of his C. difficile colitis. He has completed the other antibiotics for his other infections already. Home Meds Active Scripts [Vancomycin Oral Syringe] 50 MG/ML SOLN No Conflict Check, 250 MG PO Q6 for 6 Days Prov:ADRIANE YE 08/25/16 Lactulose* (Lactulose*) 10 Gm/15 Ml Solution, 30 GM PO Q6 for 30 Days, ML Prov:FIGUEROA BETH MD 08/04/16 Reported Medications Ferrous Sulfate* (Ferrous Sulfate*) 325 Mg Tabec, 325 MG PO DAILY, TAB 08/03/16 Propranolol Hcl* (Propranolol Hcl*) 10 Mg Tablet, 10 MG PO BID, TAB 08/03/16 Levetiracetam* (Levetiracetam*) 500 Mg Tablet, 2000 MG PO Q12H, TAB 08/03/16 Zinc Sulfate* (Zinc Sulfate*) 220 Mg Cap, 220 MG PO DAILY, CAP 08/03/16 Primary Care Provider [facility] Time spent on discharge: > 30 minutes Pending Labs Laboratory Tests Test 08/26/16 07:15 White Blood Count 3.810^3/ul (4.8-10.8) Red Blood Count 2.9010^6/ul (4.70-6.10) Hemoglobin 8.9g/dl (14.0-18.0) Hematocrit 26.1% (42.0-52.0) Mean Corpuscular Volume 90.0fl (82.0-101.0) Mean Corpuscular Hemoglobin 30.7pg (29.0-33.0) Mean Corpuscular Hemoglobin Concent 34.1g/dl (32.0-37.0) Red Cell Distribution Width 17.1% (11.5-14.5) Platelet Count 6510^3/UL (140-415) Mean Platelet Volume 9.0fl (7.4-10.4) Neutrophils % 59.5% (39.0-77.0) Lymphocytes % 19.6% (15.0-51.0) Monocytes % 15.1% (0.0-11.0) Eosinophils % 3.4% (0.0-7.0) Basophils % 0.8% (0.0-2.0) Nucleated Red Blood Cells % 0.0/100WBC (0.0-0.0) Neutrophils # 2.310^3/ul (1.6-7.5) Lymphocytes # 0.710^3/ul (0.8-2.9) Monocytes # 0.610^3/ul (0.3-0.9) Eosinophils # 0.110^3/ul (0.0-0.5) Basophils # 0.010^3/ul (0.0-0.1) Nucleated Red Blood Cells # 0.010^3/ul (0.0-0.0) Sodium Level 138mmol/L (135-144) Potassium Level 3.7mmol/L (3.5-5.1) Chloride Level 105mmol/L (97-110) Carbon Dioxide Level 24mmol/L (21-31) Anion Gap 13 (8-16) Blood Urea Nitrogen 5mg/dl (7-20) Creatinine 0.70mg/dl (0.61-1.24) Glucose Level 88mg/dl (70-220) Calcium Level 8.1mg/dl (8.4-10.2) ADRIANE YE Aug 26, 2016 09:54
--- NOTE | 2016-08-26 12:45 | CONS ---
Date/Time of Note Date/Time of Note DATE: 08/26/16 TIME: 12:45 Assessment/Plan Assessment/Plan Chief Complaint/Hosp Course Subjective: No acute events, no fevers, alert, looks comfortable Antimicrobials: Oral vancomycin Physical examination: Morbidly obese well-developed middle-aged man who is alert in no distress HEENT within normal limits Neck is supple lymph nodes nonpalpable Chest decreased breath sounds at the bases Heart without murmur gallop Abdomen is soft, obese, with a fluid wave. Extremities: 1-2+ edema with stasis changes Neurological: No focal neurological abnormalities Assessment: 1. C. difficile colitis===> resolving 2. S/p Polymicrobial UTI 3. VRE stool colonization 4. Morbid obesity 5. Seizure disorder Plan: Patient remains stable, ok dc on Vanco for 6 more days [facility] staff Problems: Consultation Date/Type/Reason Admit Date/Time Aug 16, 2016 at 05:49 Initial Consult Date 08/16/16 Type of Consultation: ID Referring Provider: MALU CORONADO [employer] Exam/Review of Systems Vital Signs Vitals Vital Signs Date Time Temp Pulse Resp B/P Pulse Ox O2 Delivery O2 Flow Rate FiO2 08/26/16 08:14 97.6 97 18 96/54 96 Intake and Output 08/25/16 08/25/16 08/26/16 15:00 23:00 07:00 Intake Total 1600 ml Balance 1600 ml Results Result Diagram: 08/26/16 0715 08/26/16 0715 Results 24 hrs Laboratory Tests Test 08/26/16 07:15 White Blood Count 3.8 #L Red Blood Count 2.90 L Hemoglobin 8.9 L Hematocrit 26.1 L Mean Corpuscular Volume 90.0 Mean Corpuscular Hemoglobin 30.7 Mean Corpuscular Hemoglobin Concent 34.1 Red Cell Distribution Width 17.1 H Platelet Count 65 L Mean Platelet Volume 9.0 Neutrophils % 59.5 Lymphocytes % 19.6 Monocytes % 15.1 H Eosinophils % 3.4 Basophils % 0.8 Nucleated Red Blood Cells % 0.0 Neutrophils # 2.3 Lymphocytes # 0.7 L Monocytes # 0.6 Eosinophils # 0.1 Basophils # 0.0 Nucleated Red Blood Cells # 0.0 Sodium Level 138 Potassium Level 3.7 Chloride Level 105 Carbon Dioxide Level 24 Anion Gap 13 Blood Urea Nitrogen 5 L Creatinine 0.70 Glucose Level 88 Calcium Level 8.1 L Medications Medications Current Medications Ondansetron HCl (Zofran Inj) 4 mg Q6H PRN IV NAUSEA AND/OR VOMITING Last administered on 08/22/16 10:50; Admin Dose 4 MG; Start 08/16/16 at 10:00 Acetaminophen (Tylenol Tab) 650 mg Q6H PRN PO PAIN LEVEL 1-3 OR FEVER Last administered on 08/17/16 22:59; Admin Dose 650 MG; Start 08/16/16 at 10:00 Acetaminophen/ Hydrocodone Bitart ([place] (5/325)) 1 tab Q6H PRN PO MODERATE PAIN LEVEL 4-6 Last administered on 08/18/16 14:25; Admin Dose 1 TAB; Start at 10:00 Morphine Sulfate (morphine) 2 mg Q4H PRN IV SEVERE PAIN LEVEL 7-10; Start 08/16 at 10:00 Pantoprazole (Protonix Tab) 40 mg DAILY@06 PO Last administered on 08/26/16 05: 36; Admin Dose 40 MG; Start 08/17/16 at 06:00 Ferrous Sulfate (Ferrous Sulfate (Ec)) 325 mg DAILY PO Last administered on 08/26 09:27; Admin Dose 325 MG; Start 08/17/16 at 09:00 Levetiracetam (Keppra) 2,000 mg Q12H PO Last administered on 08/26/16 09:27; Admin Dose 2,000 MG; Start 08/16/16 at 10:00 Propranolol HCl (Inderal) 10 mg BID PO Last administered on 08/21/16 09:29; Admin Dose 10 MG; Start 08/16/16 at 21:00 Zinc Sulfate 220 mg 220 mg DAILY PO Last administered on 08/26/16 09:27; Admin Dose 220 MG; Start 08/17/16 at 09:00 Metronidazole (Flagyl 500 Mg (Pmx)) 100 ml @ 100 mls/hr Q8 IVPB Last administered on 08/24/16 06:13; Admin Dose 100 MLS/HR; Start 08/16/16 at 14:00; Status Future Hold Lorazepam (Ativan) 0.5 mg Q6H PRN PO ANXIETY; Start 08/16/16 at 16:30 Furosemide (Lasix) 20 mg DAILY IV Last administered on 08/24/16 08:48; Admin Dose 20 MG; Start 08/17/16 at 09:00 Vancomycin HCl (Vancomycin Oral Syringe) 250 mg Q6 PO Last administered on 12:24; Admin Dose 250 MG; Start 08/17/16 at 14:30 REBEKAH JERNIGAN NP Aug 26, 2016 12:45
--- NOTE | 2016-08-26 23:36 | CONS ---
Date/Time of Note Date/Time of Note DATE: 08/26/16 TIME: 12:35 VK LE Assessment/Plan Assessment/Plan Chief Complaint/Hosp Course 56 YR MALE WITH HX AML- 32 YR AGO PANCYTOPENIA UNKNOWN RECENT BASELINE SMEAR- NEG FOR BLASTS BIOCHEM W-UP- P FLOW- SMALL AMOUNT CD + CELLS, C B MONOCLONAL SINCE FLOW IS NON CONCLUSIVE WILL PROCEED WITH BMBX IF PT AGREES NONCOMPLIANCE WITH MEDICAL CARE PT DID NOT HAVE MED CARE FOR MANY YEARS Normocytic normochromic anemia. Most probably anemia of chronic disease. Iron panel showing iron deficiency. Patient already on iron supplements. Thrombocytopenia. ? secondary to underlying liver cirrhosis. ? 2 TO SEPSIS DIC- NEG AVOID MYELOSUPPRESSIVE MEDS Will avoid any anticoagulants. Sepsis secondary to underlying urinary tract infection and C. difficile colitis. Continue antimicrobials. The patient has no evidence of any septic shock. Liver cirrhosis. The patient's ammonia level is within normal limits. The patient will be gently diuresed. The patient's chest x-ray showing no evidence of any pulmonary vascular congestion. MILD SPLENOMEGALY- MOST LIKELY 2 TO LIVER CIRRHOSIS Abdominal pain. Abdominal CT scan showing moderate amount of water density free intraperitoneal fluid. The CT also revealed diverticuli within the descending colon and sigmoid colon and there is stranding within the fat along the descending colon raising the suspicion of diverticulitis. CT also revealed extensive cholelithiasis with gallbladder mildly distended with no gallbladder wall thickening or bile duct dilatation. Patient being followed by gastroenterology. Seizure disorder. The patient's antiseizure medications will be continued. C. difficile colitis. Continue antimicrobials. Enteric precautions. Urinary tract infection. Continue antibiotics. Infectious diseases on the case. Fluids, electrolytes, and nutrition. The patient was started on clear liquids as per gastroenterology. DVT prophylaxis. Bilateral sequential compression devices. Gastrointestinal prophylaxis. Proton pump inhibitors. Problems: Consultation Date/Type/Reason Admit Date/Time Aug 16, 2016 at 05:49 Initial Consult Date 08/19/16 Type of Consultation: [facility] Referring Provider: MALU CORONADO NP 24 HR Interval Summary Free Text/Dictation ALL NOTED Exam/Review of Systems Vital Signs Vitals Vital Signs Date Time Temp Pulse Resp B/P Pulse Ox O2 Delivery O2 Flow Rate FiO2 08/26/16 08:14 97.6 97 18 96/54 96 Intake and Output 08/25/16 08/25/16 08/26/16 15:00 23:00 07:00 Intake Total 1600 ml Balance 1600 ml Exam General: Morbidly obese 56 year-old male lying in bed in no apparent distress. HEENT: Normocephalic, atraumatic. Eyes: Anicteric sclerae, conjunctivae clear. ENT: Nasal septum midline, oral mucosa moist. Neck supple, no JVD noticed. Respiratory: Bilaterally clear breath sounds. No use of accessory muscles of respiration. No adventitious breath sounds. Cardiovascular: S1, S2 heard. Regular rate and rhythm. Abdomen: Distended. Bowel sounds positive in all 4 quadrants. Left lower quadrant tenderness. Genitourinary: Deferred. Extremities: No cyanosis, no clubbing. Bilateral lower extremity 2+ pitting edema. Peripheral pulses palpable. Neurologic: Cranial nerves II through XII grossly intact. The patient is awake, alert, and oriented. Skin: Normal skin turgor. No skin rashes. Results Result Diagram: 08/26/16 0715 08/26/16 0715 Results 24 hrs Laboratory Tests Test 08/26/16 07:15 White Blood Count 3.8 #L Red Blood Count 2.90 L Hemoglobin 8.9 L Hematocrit 26.1 L Mean Corpuscular Volume 90.0 Mean Corpuscular Hemoglobin 30.7 Mean Corpuscular Hemoglobin Concent 34.1 Red Cell Distribution Width 17.1 H Platelet Count 65 L Mean Platelet Volume 9.0 Neutrophils % 59.5 Lymphocytes % 19.6 Monocytes % 15.1 H Eosinophils % 3.4 Basophils % 0.8 Nucleated Red Blood Cells % 0.0 Neutrophils # 2.3 Lymphocytes # 0.7 L Monocytes # 0.6 Eosinophils # 0.1 Basophils # 0.0 Nucleated Red Blood Cells # 0.0 Sodium Level 138 Potassium Level 3.7 Chloride Level 105 Carbon Dioxide Level 24 Anion Gap 13 Blood Urea Nitrogen 5 L Creatinine 0.70 Glucose Level 88 Calcium Level 8.1 L ELVA TEE MD Aug 26, 2016 23:36
== END 2016-08-26 20:00 | disposition home or self-care (01) | DRG 872 ==
LOC: E/R 04:10 → MS2 05:49
PROVIDERS: ADMIT Family Medicine; ATTEND Family Medicine
DX: A41.9 Sepsis, unspecified organism (principal); D61.818 Other pancytopenia; D69.59 Other secondary thrombocytopenia; A04.7 Enterocolitis due to Clostridium difficile; Z68.42 Body mass index [BMI] 45.0-49.9, adult; K74.60 Unspecified cirrhosis of liver; E66.01 Morbid (severe) obesity due to excess calories; N39.0 Urinary tract infection, site not specified; G40.909 Epilepsy, unspecified, not intractable, without status epilepticus; I87.8 Other specified disorders of veins; D63.8 Anemia in other chronic diseases classified elsewhere; Z85.6 Personal history of leukemia; Z22.39 Carrier of other specified bacterial diseases
CPT/HCPCS: 36415; 71010; 74176; 80048; 80053; 80061; 80306; 80307; 81001; 81003; 82140; 82247; 82248; 82270; 82306; 82607; 82668; 82728; 82746; 82962; 83036; 83540; 83605; 83615; 83735; 84100; 84155; 84165; 84439; 84443; 84484; 84560; 85025; 85045; 85049; 85362; 85378; 85384; 85610; 85651; 85670; 85730; 87040; 87045; 87075; 87086; 87177; 93005; 96374; 96375; 97110; 97116; 97162; 97530; J1940; J1956; J2405; J3475; J3480; J7030; J7042

== ENCOUNTER 2016-09-04 02:34 | Emergency (ER) | payer OTHER ==
[~2016-09-04] VITALS: Ht 175.3 cm; Wt 200.0 kg
[~2016-09-04 02:34] MED LIST changes: -VANC125C10 PO; +Vancomycin Oral Syringe PO
--- NOTE | 2016-09-04 02:49 | ERA ---
ER Documentation Chief Complaint Date/Time DATE: 09/04/16 TIME: 02:48 Chief Complaint HPI 56-year-old man with a history of cirrhosis and anemia presents with urinary retention 1 day. He complains of suprapubic discomfort. He denies dysuria, no penile discharge, no fevers or chills, no dizziness, no loss of consciousness , no chest pain or shortness of breath. Patient denies blood per rectum or melena. Patient was transported here by EMS without further complications. ROS All systems reviewed and are negative except as per history of present illness. Medications Home Meds Active Scripts Ciprofloxacin Hcl* (Ciprofloxacin Hcl*) 500 Mg Tablet, 500 MG PO BID for 7 Days , TAB Prov:ISAAK LOGAN MD 09/04/16 [Vancomycin Oral Syringe] 50 MG/ML SOLN No Conflict Check, 250 MG PO Q6 for 6 Days Prov:ADRIANE YE 08/25/16 Lactulose* (Lactulose*) 10 Gm/15 Ml Solution, 30 GM PO Q6 for 30 Days, ML Prov:FIGUEROA BETH MD 08/04/16 Reported Medications Ferrous Sulfate* (Ferrous Sulfate*) 325 Mg Tabec, 325 MG PO DAILY, TAB 08/03/16 Propranolol Hcl* (Propranolol Hcl*) 10 Mg Tablet, 10 MG PO BID, TAB 08/03/16 Levetiracetam* (Levetiracetam*) 500 Mg Tablet, 2000 MG PO Q12H, TAB 08/03/16 Zinc Sulfate* (Zinc Sulfate*) 220 Mg Cap, 220 MG PO DAILY, CAP 08/03/16 Allergies Allergies: Coded Allergies: Penicillins (Unverified Adverse Reaction, Severe, loss of memory , 08/16/16 ) PMhx/Soc Recent sepsis, cirrhosis, cholelithiasis, seizure disorder, anemia, previous C. difficile colitis and urinary tract infections, leukemia History of Surgery: Yes (polyp removal of neck, spinal tap ) Anesthesia Reaction: No (unknown ) Hx Neurological Disorder: Yes (seizures ) Hx Respiratory Disorders: Yes (asthma childhood ) Hx Cardiac Disorders: No Hx Psychiatric Problems: No Hx Alcohol Use: Yes (last drink 9 months ago) Hx Substance Use: Yes Hx Tobacco Use: No FmHx Family History: diabetes Physical Exam Vitals Vital Signs Date Time Temp Pulse Resp B/P Pulse Ox O2 Delivery O2 Flow Rate FiO2 7/16/17 03:03 98.0 95 16 114/71 94 Physical Exam GENERAL: Well-developed, well-nourished, well-hydrated, in no apparent distress , looks nontoxic in appearance HEENT: Moist mucous membranes, pink conjunctiva, no cervical spine tenderness or step-off deformities, no goiter, no jaundice or icterus, extraocular movements intact without pain. No submandibular induration, and no pharyngeal erythema NEURO: Alert and oriented 3, cranial nerves II through XII intact bilaterally, pupils equal round reactive to light, no focal deficits or facial asymmetry, sensation intact distally Strength 5/5 in upper and lower extremities bilaterally CARDIAC: Regular rate and rhythm, no murmurs rubs or gallops LUNGS: Clear bilaterally no wheezing crackles or stridor ABDOMEN: Soft nontender, no guarding, no rigidity, no rebound, no psoas sign no obturator sign. Normoactive bowel sounds SKIN: Warm and dry to touch, no abrasions, contusions, or hematomas, no lacerations, no ecchymosis, no target lesions, and without ulcers EXTREMITIES: No clubbing cyanosis or edema, calves are bilaterally symmetrical, no Homans sign, no popliteal cord sign. Distal pulses equal and bilateral PSYCH: Normal affect without agitation or irritability Results 24 hrs Laboratory Tests Test 09/04/16 04:49 Bedside Urine pH (LAB) 6.0 Bedside Urine Protein (LAB) 1+ Bedside Urine Glucose (UA) Negative Bedside Urine Ketones (LAB) 1+ Bedside Urine Blood Trace-intact Bedside Urine Nitrite (LAB) Negative Bedside Urine Leukocyte Esterase (L Negative Current Medications Medications (Trade) Dose Ordered Sig/Kaylin Route PRN Reason Start Time Stop Time Status Last Admin Dose Admin Lidocaine (Lidocaine 2% Urojet) 20 ml ONCE ONCE MM 09/04/16 04:00 09/04/16 04:02 DC Procedures/MDM Straight catheterization of the bladder was performed minimal urine output although Calderon catheter was not advanced fully into the bladder. I confirmed this with bedside ultrasound of the bladder. Catheter was removed successfully. There was no urethral bleeding or blood at the meatus noted. Patient tolerated procedure well. Urine cultures have been ordered results are pending I will follow-up, although given the patient's genitourinary symptoms I suspect acute urinary tract infection with urinary retention. Patient will be managed as an outpatient with oral antibiotics. He will follow- up with his PMD for continued outpatient management. Patient's vital signs are completely normal at this time, he is asymptomatic, and he had a normal bowel movement in the emergency department without difficulty. Differential diagnoses considered, included but not limited to acute coronary syndrome, pulmonary embolism, aortic dissection, abdominal aortic aneurysm, sepsis, stroke, meningitis, encephalitis, pneumonia, appendicitis, cholecystitis , bowel obstruction, pyelonephritis, nephrolithiasis, cystitis, as well as metabolic, hematologic, and electrolyte abnormalities. As well as abscess, cellulitis, fractures, and dislocations. Patient feels much better at this time, and vital signs are normal, symptoms have improved. I did give strict instructions to return to the ED if symptoms continue or worsen, patient will otherwise follow-up with primary care physician. Patient understood instructions and agreed to plan. Disclaimer: Inadvertent spelling and grammatical errors are likely due to EHR/ dictation software use and do not reflect on the overall quality of patient care. Also, please note that the electronic time recorded on this note does not necessarily reflect the actual time of the patient encounter. Departure Diagnosis: Primary Impression: Urinary retention Additional Impressions: Anemia Qualified Code: D64.9 - Anemia, unspecified type Cirrhosis Qualified Code: K74.60 - Cirrhosis of liver with ascites, unspecified hepatic cirrhosis type Condition: ISAAK Caicedo MD Sep 04, 2016 02:49
[2016-09-04] MEDS ORDERED: CIPR500T4 PO (03:01)
[2016-09-04 03:03] VITALS: Ht 175.3 cm; Wt 200.0 kg
[2016-09-04] MEDS ORDERED: LIDOCAINE 2% 20 ML UROJET SYRINGE MM ONE (04:00)
[2016-09-04 04:46] LABS: URINE BLOOD (Dip) POC Trace-intact (NEGATIVE)
[2016-09-04] MEDS ORDERED: CIPROFLOXACIN 500 MG TAB PO ONE (06:00)
[2016-09-04] MEDS ORDERED: CEPHALEXIN 500 MG CAP PO ONE (06:00)
== END 2016-09-04 07:30 | disposition home or self-care (01) ==
LOC: E/R 02:34
DX: R33.9 Retention of urine, unspecified (principal); D64.9 Anemia, unspecified; K74.60 Unspecified cirrhosis of liver; J45.909 Unspecified asthma, uncomplicated; Z85.6 Personal history of leukemia
CPT/HCPCS: 51702; 81003; 87086; Z7502; Z7610